=== PATIENT | female | born 1940 | race Caucasian/White ===

== ENCOUNTER 2019-10-15 10:45 | Emergency (ER) | payer MEDICARE, SELFPAY ==
[2019-10-15 11:12] VITALS: BP 102/59; PULSE 80; RESP 18; TEMP 36.6; O2SAT 98
--- NOTE | 2019-10-15 11:18 | ED.SKABFB ---
HPI - Skin/Abscess/Foreign Bdy General Chief complaint: Skin/Abscess/Foreign Body Stated complaint: rash on rectum and vagina Time Seen by Provider: 10/15/19 10:55 Source: patient Mode of arrival: ambulatory Limitations: no limitations History of Present Illness HPI narrative: This is a 78 year old female that presents to the ER for rash to vagina and left buttock x 2 days. Reports a couple days prior she noted pain in her left lower back that goes down her leg. Reports the rash is blisters that are painful. She took Tylenol with little relief. Reports the rash is also itchy. Denies fever, abdominal pain, dysura or hematuria. Related Data Home Medications Medication Instructions Recorded Confirmed citalopram 40 mg tablet 20 mg PO DAILY 10/15/19 ergocalciferol (vitamin D2) 1,250 50,000 unit PO WEEKLY 10/15/19 mcg (50,000 unit) capsule gabapentin 300 mg capsule 300 mg PO DAILY 10/15/19 hydrocortisone 2.5 % rectal cream % TOPICAL BID PRN 10/15/19 with applicator Allergies Allergy/AdvReac Type Severity Reaction Status Date / Time No Known Allergies Allergy Verified 10/15/19 11:17 Review of Systems Review of Systems: Narrative: CONSTITUTIONAL: Denies fever GASTROINTESTINAL: Denies abdominal pain GENITOURINARY: Denies dysuria or hematuria. SKIN: Reports rash and itching. MUSCULOSKELETAL: Reports back pain, joint pain, and myalgia. NEUROLOGIC: Denies weakness. All systems reviewed & are unremarkable except as noted in HPI and below PMFSH Past Medical History Medical History (Updated 10/15/19 @ 11:27 by Laura Dawkins PA-C) History of COPD History of depression History of gastroesophageal reflux (GERD) History of peripheral neuropathy Surgical History Surgical History (Updated 10/15/19 @ 11:21 by Laura Dawkins PA-C) History of mastectomy Family History Family History (Updated 05/01/16 @ 11:01 by DOCTOR UNKNOWN) Sibling Family history of diabetes mellitus in first degree relative Family history of malignant neoplasm of breast in first degree relative Patient's sister is in good health Father No family history of malignant neoplasm Family history of lung cancer Mother Patient's mother is Family history of Alzheimer's disease Family history of malignant melanoma Social History Social History Second hand tobacco smoke exposure: No Smoking end date: 09/17/98 Alcohol intake: never Exam Narrative: Exam Narrative: GENERAL: Well-appearing, well-nourished, and in no acute distress. HEAD: Normocephalic, atraumatic. EYES: EOMI. CHEST: Clear to auscultation. No respiratory distress. No wheezes rales or rhonchi HEART: Regular rate and rhythm. No murmur heard. Normal peripheral pulses. ABDOMEN: Soft, nontender, nondistended, normal active bowel sounds. EXTREMITIES: Normal range of motion. No edema. SKIN: Warm, dry. Vesicular rash on erythematous base in dermatomal pattern present over the left labia, left buttock, and down the back of the left leg. NEURO: No focal deficits. Alert and oriented x3. PSYCH: Normal mood and affect Course Vital Signs Vital signs: Vital Signs Temperature 97.9 F 10/15/19 11:12 Pulse Rate 80 10/15/19 11:12 Respiratory Rate 18 10/15/19 11:12 Blood Pressure 102/59 L 10/15/19 11:12 Pulse Oximetry 98 10/15/19 11:12 Temperature 97.9 F 10/15/19 11:12 Pulse Rate 80 10/15/19 11:12 Respiratory Rate 18 10/15/19 11:12 Blood Pressure 102/59 L 10/15/19 11:12 Pulse Oximetry 98 10/15/19 11:12 MDM - Skin/Abscess/Foreign Bdy MDM Narrative Medical decision making narrative: Patient presents to the emergency department for rash typical of herpes zoster. Patient will be started on antiviral and is to follow-up with her primary care doctor. She will be given a pain medication if needed. Patient was given warnings to return to the ER Critical Care Time Critical Care Time Critical Care Time: No Discharge Plan
== END 2019-10-15 11:42 | disposition home or self-care (01) ==
PROVIDERS: Emergency Provider Family Medicine; PCP Internal Medicine
DX: B02.9 Zoster without complications (principal); J44.9 Chronic obstructive pulmonary disease, unspecified; K21.9 Gastro-esophageal reflux disease without esophagitis; G62.9 Polyneuropathy, unspecified; Z90.10 Acquired absence of unspecified breast and nipple; Z87.891 Personal history of nicotine dependence
CPT/HCPCS: 99283

== ENCOUNTER 2019-10-31 17:58 | Emergency (ER) | payer MEDICARE, SELFPAY ==
[2019-10-31 18:00] VITALS: BP 151/82; PULSE 88; RESP 16; TEMP 36.6; O2SAT 95
--- NOTE | 2019-10-31 18:18 | ED.FEMALEGU ---
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 She states that she was dx with shingles to her buttock and genital area on 10/15/19, so was started on Valtrex and Hydrocodone. She reports that she has been using these as prescribed and that her original rash has improved but that she has been having some intermittent shooting lt buttock pain. She notes that the rash has spread to her vagina. She denies any fevers, chills, vaginal discharge, vaginal bleeding, N/V/D, or ABD pain. MD elicited complaint: other (vaginal pain) Location of symptoms: vaginal Severity: severe Quality of pain: other (shooting) Consistency: intermittent and progressively worsening Vaginal discharge: none Vaginal bleeding: none Urinary symptoms: Dysuria Associated symptoms: other (intermittent lt buttock pain) Treatment prior to arrival: other (Valtrex and Hydrocodone) Related Data Home Medications Medication Instructions Recorded Confirmed citalopram 40 mg tablet 20 mg PO DAILY 10/15/19 10/27/19 Allergies Allergy/AdvReac Type Severity Reaction Status Date / Time No Known Allergies Allergy Verified 10/20/19 14:18 Review of Systems Review of Systems: All systems reviewed & are unremarkable except as noted in HPI and below Constitutional: Constitutional: Denies chills and Denies fever(s) Gastrointestinal: Gastrointestinal: Denies abdominal pain, Denies diarrhea, Denies nausea and Denies vomiting Genitourinary: Genitourinary: Denies abnormal vaginal bleeding, Reports dysuria, Denies vaginal discharge and Reports other (shooting vaginal pain and lt buttock pain) [facility] Past Medical History Medical History Ankle fracture Rt x2. Arthritis Cataracts, bilateral COPD (chronic obstructive pulmonary disease) Depression GERD (gastroesophageal reflux disease) History of COPD History of depression History of gastroesophageal reflux (GERD) History of melena History of peripheral neuropathy Hx of breast cancer Hx of hemorrhoids IBS (irritable bowel syndrome) LBBB (left bundle branch block) Peripheral neuropathy Ulcer Surgical History Surgical History H/O cataract removal with insertion of prosthetic lens History of bilateral knee arthroplasty History of hemorrhoidectomy History of mastectomy Family History Family History Sibling Family history of diabetes mellitus in first degree relative Family history of malignant neoplasm of breast in first degree relative Patient's sister is in good health Father No family history of malignant neoplasm Family history of lung cancer Mother Patient's mother is Family history of Alzheimer's disease Family history of malignant melanoma Social History Social History Smoking status: Former smoker Second hand tobacco smoke exposure: No Smoking end date: 09/17/98 Alcohol intake: never Exam Narrative: Exam Narrative: GENERAL: Well-appearing, well-nourished, and in no acute distress. HEAD: Normocephalic, atraumatic. CHEST: Clear to auscultation. No respiratory distress. HEART: Regular rate and rhythm. Normal peripheral pulses. Pelvic: Healing shingles outbreak left pelvic region without any new vesicles or erythema. Unable to perform pelvic exam due to labial adhesions inferiorly. Otherwise there is no apparent discharge within the vagina or obvious irritation. Rectal: Rectum with small nonthrombosed/nonbleeding external hemorrhoids. There is a area of healing zoster ulceration on th
[2019-10-31 19:40] VITALS: BP 148/78; PULSE 81; RESP 16; O2SAT 100
[2019-10-31 20:21] LABS: Add Urine Microscopic? NO; Appearance Urine Clear (Clear); Bilirubin Urine Negative (Negative); Blood Urine Negative (Negative); Color Urine Yellow (Yellow); Glucose Urine UA Negative (Negative); Ketones Urine Negative (Negative); Leukocyte Esterase Ur Negative LEU/UL (Negative); Nitrate Urine Negative (Negative); Protein Urine Negative (Negative); Specific Grav Ur 1.015 (1.001-1.035); Urobilinogen Urine Negative mg/dL (<2.0)
== END 2019-10-31 21:07 | disposition home or self-care (01) ==
PROVIDERS: Emergency Provider Emergency Medicine; PCP Internal Medicine
DX: B02.29 Other postherpetic nervous system involvement (principal); N90.89 Other specified noninflammatory disorders of vulva and perineum; J44.9 Chronic obstructive pulmonary disease, unspecified; K21.9 Gastro-esophageal reflux disease without esophagitis; G62.9 Polyneuropathy, unspecified; K58.9 Irritable bowel syndrome, unspecified; M19.90 Unspecified osteoarthritis, unspecified site; Z85.3 Personal history of malignant neoplasm of breast; Z90.10 Acquired absence of unspecified breast and nipple; Z87.891 Personal history of nicotine dependence
CPT/HCPCS: 81003; 99283

== ENCOUNTER 2021-10-17 15:26 | Emergency (ER) | payer MEDICARE, SELFPAY ==
--- NOTE | ~2021-10-17 | XR_ITS ---
EXAMINATION: XR finger 1st RT min 2V EXAM DATE: 10/17/2021 16:11 INDICATION: Injury to rt thumb, hyperextended. TECHNIQUE: Right thumb frontal, lateral and oblique projections obtained and reviewed. There is no prior study for comparison. FINDINGS: Appearance to the volar plate of the right 1st distal phalanx appears most likely sequela f rom an old fracture, finding has been indicated. Please clinically correlate. No dislocation. No radi opaque foreign bodies identified. IMPRESSION: Right 1st distal phalanx volar plate most likely sequela from an old fracture but please clinically correlate. Reviewed, dictated and finalized at location G. EAR OPERATIONS SPECIALIST IMPRESSION: Right 1st distal phalanx volar plate most likely sequela from an o ld fracture but please clinically correlate.
[2021-10-17 15:44] VITALS: BP 141/79; PULSE 89; RESP 18; TEMP 36.8; O2SAT 97
[2021-10-17 15:47] VITALS: BP 141/79; PULSE 89; RESP 18; TEMP 36.8; O2SAT 97
--- NOTE | 2021-10-17 15:52 | ED.UPPEXIN ---
HPI - Extremity Injury (Upper) General Chief Complaint: Extremity Injury, Lower Stated Complaint: Right Hand Thumb Pain Time Seen by Provider: 10/17/21 15:53 Source: patient, family, RN notes reviewed and old records reviewed Mode of arrival: ambulatory Limitations: no limitations History of Present Illness HPI narrative: 80-year-old female presents to the [facility] with complaints of base of right thumb pain and swelling. Patient states approximately 1 week ago she stumbled and fell into a door jam. Thinks she hyperextended the thumb. Has good range of motion. Swelling is noted. No bruising. Capillary refill under 2 seconds. Sensation intact in all 5 fingers. Positive radial pulse. No snuffbox tenderness MD complaint: injury to: right Related Data Home Medications Medication Instructions Recorded Confirmed gabapentin 300 mg capsule See Rx Instructions PO DAILY cap 04/20/20 10/17/21 doxycycline monohydrate 50 mg PO DAILY 10/17/21 10/17/21 Allergies Allergy/AdvReac Type Severity Reaction Status Date / Time No Known Allergies Allergy Verified 10/17/21 16:01 Review of Systems Review of Systems: All systems reviewed & are unremarkable except as noted in HPI and below Constitutional: Constitutional: Reports no additional constitutional complaints, Denies chills, Denies fever(s), Denies headache(s) and Denies weakness Eyes: Eyes: Reports no additional eye complaints ENT: Reports system reviewed and no additional complaints, except as documented, Denies vertigo, Denies dizziness and Denies headache(s) Cardiovascular: Cardiovascular: Reports no additional cardiovascular complaints, Denies chest pain, Denies syncope and Denies dyspnea Respiratory: Respiratory: Reports no additional respiratory complaints, Denies cough and Denies dyspnea Gastrointestinal: Gastrointestinal: Reports no additional gastrointestinal complaints, Denies abdominal pain, Denies nausea and Denies vomiting Musculoskeletal: Musculoskeletal: Reports as per HPI, Reports arthralgias (Base right thumb), Reports joint swelling (Base right thumb) and Denies numbness Integumentary/Breasts: Skin/Breast: Reports system reviewed and no additional complaints, except as docu Neurologic: Reports system reviewed and no additional complaints, except as documented, Denies confusion, Denies vertigo, Denies dizziness, Denies syncope, Denies headache(s), Denies focal weakness, Denies numbness and Denies weakness Psychiatric: Psychiatric: Reports no additional psychiatric complaints and Denies confusion Allergic/Immunologic: Allergic/Immunologic: Reports no additional allergic/immunologic complaints PMFSH Past Medical History Medical History (Updated 10/18/21 @ 18:46 by Marley Poole) Ankle fracture Rt x2. Arthritis Cataracts, bilateral COPD (chronic obstructive pulmonary disease) Depression GERD (gastroesophageal reflux disease) History of COPD History of depression History of gastroesophageal reflux (GERD) History of melena History of peripheral neuropathy History of vaginal delivery x 3 Hx of breast cancer Hx of hemorrhoids IBS (irritable bowel syndrome) LBBB (left bundle branch block) Peripheral neuropathy Ulcer Surgical History Surgical History H/O cataract removal with insertion of prosthetic lens History of bilateral knee arthroplasty History of hemorrhoidectomy History of mastectomy Family History Family History Sibling Family history of diabetes mellitus in first degree relative Family history of malignant neoplasm of breast in first degree relative Patient's sister is in good health Father No family history of malignant neoplasm Family history of lung cancer Mother Patient's mother is Family history of Alzheimer's disease Family history of malignant melanoma Social History Social History (Reviewed 10/18/21 @ 18:45 b
== END 2021-10-17 16:35 | disposition home or self-care (01) ==
PROVIDERS: Emergency Provider Nurse Practitioner; PCP Internal Medicine
DX: S63.601A Unspecified sprain of right thumb, initial encounter (principal); W19.XXXA Unspecified fall, initial encounter; F17.200 Nicotine dependence, unspecified, uncomplicated; M19.90 Unspecified osteoarthritis, unspecified site; J44.9 Chronic obstructive pulmonary disease, unspecified; K21.9 Gastro-esophageal reflux disease without esophagitis; G62.9 Polyneuropathy, unspecified; Z85.3 Personal history of malignant neoplasm of breast; Z98.49 Cataract extraction status, unspecified eye; Z96.1 Presence of intraocular lens; Z96.653 Presence of artificial knee joint, bilateral
CPT/HCPCS: 73140; 99213; G0463

== ENCOUNTER 2022-02-06 15:57 | Outpatient (CLI) | payer MEDICARE, SELFPAY ==
--- NOTE | ~2022-02-06 | XR_ITS ---
EXAM: XR knee RT 3V DATE: 02/06/2022 16:21 HISTORY: M25.561 - Pain in right knee, CHRONIC, DENIES INJURY . COMPARISON: None available. FINDINGS: Decreased mineralization. Severe medial joint space narrowing. Tricompartmental osteophyto sis. No fracture or dislocation. Irregular cluster of ossific density projecting over the infrapatell ar fat pad. IMPRESSION: Possible old fat necrosis or hematoma with dystrophic ossification and calcification in t he infrapatellar fat pad. Tricompartmental osteoarthritis, severe in the medial compartment. Reviewed, dictated and finalized at location K. IMPRESSION: Possible old fat necrosis or hematoma with dystrophic ossification and calcification in the infrapatellar fat pad. Tricompartmental osteoarthritis , severe in the medial compartment.
== END 2022-02-06 15:58 | disposition home or self-care (01) ==
PROVIDERS: PCP Internal Medicine; Visit Provider Physician Assistant
DX: M25.561 Pain in right knee (principal); M17.11 Unilateral primary osteoarthritis, right knee
CPT/HCPCS: 73562

== ENCOUNTER 2022-05-01 12:52 | Outpatient (CLI) | payer MEDICARE, SELFPAY ==
[2022-05-01 13:44] LABS: D Dimer 0.47 ug/mL (<0.48)
== END 2022-05-01 12:53 | disposition home or self-care (01) ==
LOC: ANHLAB 12:56
PROVIDERS: PCP Internal Medicine; Visit Provider Physician Assistant
DX: R68.2 Dry mouth, unspecified (principal); R06.02 Shortness of breath
CPT/HCPCS: 36415; 85380

== ENCOUNTER 2022-11-14 10:13 | Emergency (ER) | payer MEDICARE, SELFPAY ==
[2022-11-14] VITALS (17 sets, daily range): BP systolic 145–154; BP diastolic 74–83; PULSE 76–111; RESP 9–21; TEMP 36.8; O2SAT 94–98
--- NOTE | ~2022-11-14 | CT_ITS ---
EXAMINATION: CT abdomen pelvis w con DATE: 11/14/2022 12:53 INDICATION: Bowel obstruction. TECHNIQUE: Computed tomography (CT) of the abdomen and pelvis was performed with 100 cc Omnipaque 350 intravenous contrast. The dose-length product was 308.62 mGy-cm. Automated exposure control and iter ative reconstruction technique were employed. COMPARISON: CT dated 12/28/2015 FINDINGS: The liver, spleen, pancreas, adrenal glands and left kidney are unremarkable. There is an e xtrarenal pelvis of the right kidney. Gallbladder is present. There is fluid throughout nondilated sm all bowel. Colonic diverticulosis without evidence for diverticulitis. No free air or free fluid. The re is diffuse atherosclerosis of the aorta without evidence for aneurysm. Retroaortic left renal vein . No abnormal pelvic masses or fluid collections. Moderate-severe lumbar spondylosis. No focal lytic or blastic lesions. IMPRESSION: 1. Fluid-filled nondilated small bowel, most likely ileus versus enteritis. No definite obstruction. Reviewed, dictated and finalized at location L. E REPAIRER
--- NOTE | 2022-11-14 10:58 | ED.GENADULT ---
HPI - General Adult General Chief complaint: Unspecified <CLEVELAND Sanchez Last Filed: 11/16/22 09:11> Stated complaint: constipation <Neal Deshpande PA-C - Last Filed: 11/16/22 09:11> Time Seen by Provider: 11/14/22 10:51 <Neal Deshpande PA-C - Last Filed: 11/16/22 09:11> History of Present Illness HPI narrative: This is an 81-year-old female who presents the ED by referral of her primary care doctor to rule out an obstruction. She has chief complaint of constipation x4 days. She does state that her last bowel movement was 4 days ago. Also complains of obstipation x2 days. She does note some pain to the rectum as well. Patient states she recently tried to manually disimpact while she was on the toilet at home. She states she was able to pull out some hard compacted stools. Since then she has had brown/yellow seepage. Denies any vomiting. Denies melena or hematochezia. Denies fevers, chills, LOC, chest pain, shortness of breath <Neal Deshpande PA-C - Last Filed: 11/16/22 09:11> Related Data Home medications: Home Medications Medication Instructions Recorded Confirmed gabapentin 300 mg capsule See Rx Instructions PO DAILY 04/20/20 05/07/22 doxycycline hyclate 50 mg capsule 50 mg PO DAILY 02/27/22 05/07/22 <CLEVELAND Sanchez Last Filed: 11/16/22 09:11> Allergies/adverse reactions: Allergies Allergy/AdvReac Type Severity Reaction Status Date / Time No Known Allergies Allergy Verified 05/01/22 11:01 <CLEVELAND Sanchez Last Filed: 11/16/22 09:11> Review of Systems Review of Systems: CONSTITUTIONAL: Denies fever, chills, or sweats. EYES: Denies visual changes, redness, or discharge. ENT: Denies rhinorrhea, congestion, sore throat, or otalgia. CARDIOVASCULAR: Denies chest pain, palpitations, or edema. RESPIRATORY: Denies cough or dyspnea. GASTROINTESTINAL: Endorses constipation. Endorses abdominal cramping and nausea. Denies vomiting or diarrhea. GENITOURINARY: Denies dysuria or hematuria. SKIN: Denies rash or itching. MUSCULOSKELETAL: Denies back pain, joint pain, or myalgia. NEUROLOGIC: Denies headache, numbness, dizziness, or weakness. PSYCHIATRIC: Denies anxiety or depression. <Neal Deshpande PA-C - Last Filed: 11/16/22 09:11> [facility] Past Medical History Medical History: Medical History (Updated 11/15/22 @ 00:00 by [facility]) Ankle fracture Rt x2. Arthritis Cataracts, bilateral COPD (chronic obstructive pulmonary disease) Depression GERD (gastroesophageal reflux disease) History of COPD History of depression History of gastroesophageal reflux (GERD) History of melena History of peripheral neuropathy History of vaginal delivery x 3 Hx of breast cancer Hx of hemorrhoids IBS (irritable bowel syndrome) LBBB (left bundle branch block) Peripheral neuropathy Ulcer <Neal Deshpande PA-C - Last Filed: 11/16/22 09:11> Surgical History Surgical History: Surgical History H/O cataract removal with insertion of prosthetic lens History of bilateral knee arthroplasty History of hemorrhoidectomy History of mastectomy <Neal Deshpande PA-C - Last Filed: 11/16/22 09:11> Family History Family History: Family History Sibling Family history of diabetes mellitus in first degree relative Family history of malignant neoplasm of breast in first degree relative Patient's sister is in good health Father No family history of malignant neoplasm Family history of lung cancer Mother Patient's mother is Family history of Alzheimer's disease Family history of malignant melanoma <Neal Deshpande PA-C - Last Filed: 11/16/22 09:11> Social History Social History: Social History Smoking status: Former smoker Second hand tobacco smoke exposure: No Smoking end d
[2022-11-14 11:49] LABS: Basophils Absolute Auto 0.1 K/mm3 (0.0-0.1); Basophils Percent Auto 1.2 % (0.2-1.2); Eosinophils Absolute Auto 0.2 K/mm3 (0-0.3); Eosinophils Percent Auto 4.1 % (0-4.4); Hematocrit 40.9 % (37.0-47.0); Hemoglobin 13.5 g/dL (12.0-15.0); Immature Granulocyte Absolute 0.01 K/mm3 (0.00-0.031); Immature Granulocyte Percent A 0.2 % (0-0.5); Lymphocytes Absolute Auto 1.63 K/mm3 (0.9-3.2); Lymphocytes Percent Auto 31.9 % (18.3-44.2); Mean Corpuscular Hemoglobin 30.7 pg (26-34); Mean Platelet Volume 10.8 fl (7.4-10.4); Monocytes Absolute Auto 0.6 K/mm3 (0.1-0.6); Monocytes Percent Auto 11.4 % (2.6-8.5); Neutrophils Absolute Auto 2.6 K/mm3 (1.3-6.7); Neutrophils Percent Auto 51.2 % (45.5-73.1); Platelet Count Result 176 k/mm3 (150-375); Red Cell Distribution Width 12.4 % (11.5-14.5); White Blood Count 5.1 K/mm3 (4.5-10.0)
[2022-11-14] MEDS: SODIUM CHLORIDE 0.9% IV 1,000 ML 999 ML IV CONT (11:52)
[2022-11-14] MEDS: ONDANSETRON INJ 4 MG/2 ML VIAL IV PUSH (11:52)
[2022-11-14 12:04] LABS: Alanine Aminotransferase 39 U/L (6-35); Albumin Level 3.9 g/dL (3.5-5.1); Alkaline Phosphatase 144 U/L (38-126); Anion Gap 5 mmol/L (8-16); Aspartate Amino Transferase 40 U/L (14-36); Bilirubin,Total 0.9 mg/dL (0.2-1.3); Blood Urea Nitrogen 18 mg/dL (7-17); CRP 2.2 mg/dL (<1.0); Calcium 8.9 mg/dL (8.4-10.2); Carbon Dioxide 29 mmol/L (22-30); Chloride 103 mmol/L (98-107); Estimated CRCL calculation 56 ml/min; Estimated Glomerular Filt Rate > 60; Glucose 98 mg/dL (65-110); Potassium 4.3 mmol/L (3.4-5.0); Sodium 137 mmol/L (137-145)
[2022-11-14 12:58] LABS: Appearance Urine Clear (Clear); Bilirubin Urine Negative (Negative); Blood Urine Negative (Negative); Color Urine Yellow (Yellow); Glucose Urine UA Negative (Negative); Ketones Urine Negative (Negative); Leukocyte Esterase Ur Negative LEU/UL (Negative); Nitrate Urine Negative (Negative); Protein Urine Negative (Negative); Specific Grav Ur 1.013 (1.001-1.035); Urobilinogen Urine 0.2 mg/dL (<2.0); pH Urine 5.5 (5.0-9.0)
[2022-11-14 13:04] LABS: Add Urine Microscopic? NO
== END 2022-11-14 16:30 | disposition home or self-care (01) ==
PROVIDERS: Emergency Provider Physician Assistant; PCP Internal Medicine
DX: K52.9 Noninfective gastroenteritis and colitis, unspecified (principal); J44.9 Chronic obstructive pulmonary disease, unspecified; K21.9 Gastro-esophageal reflux disease without esophagitis; G62.9 Polyneuropathy, unspecified; K58.9 Irritable bowel syndrome, unspecified; M19.90 Unspecified osteoarthritis, unspecified site; Z98.49 Cataract extraction status, unspecified eye; Z96.1 Presence of intraocular lens; Z96.653 Presence of artificial knee joint, bilateral; Z90.10 Acquired absence of unspecified breast and nipple; Z85.3 Personal history of malignant neoplasm of breast; Z87.891 Personal history of nicotine dependence
CPT/HCPCS: 36415; 74177; 80053; 81003; 85025; 86140; 96361; 96374; 99284; J2405; J7030; Q9967

== ENCOUNTER 2023-10-01 11:39 | Emergency (ER) | payer MEDICARE, SELFPAY ==
[2023-10-01] VITALS (7 sets, daily range): BP systolic 112–172; BP diastolic 68–87; PULSE 84–94; RESP 13–19; TEMP 36.6; O2SAT 96–100
--- NOTE | ~2023-10-01 | CT_ITS ---
EXAMINATION: CT abdomen pelvis w con DATE: 10/01/2023 13:38 INDICATION: Lower abdominal pain. Pelvic pain, rectal pain. TECHNIQUE: Computed tomography (CT) of the abdomen and pelvis was performed with 100 CC Omnipaque 350 intravenous contrast. Automated exposure control and iterative reconstruction technique were employe d. Exam dose: 282.22 mGy-cm total exam DLP. COMPARISON: November 14, 2022 CT abdomen pelvis FINDINGS: The lung bases are clear. Normal heart size. Coronary artery calcifications. No pericardial or pleural effusion. The liver, gallbladder, bile ducts, pancreas, pancreatic duct, spleen and adrenal glands are unremark able. Atherosclerotic calcification of the abdominal aorta, iliac and femoral arteries, No intraperitoneal or retroperitoneal or pelvic mass lesion or adenopathy or ascites. 7 mm upper pole left renal cyst. 10.9 mm hypoenhancing posteromedial mid left renal lesion, not signi ficantly changed since November 14, 2022. No suspicious renal mass lesion or urinary tract calculus or hydroureteronephrosis is detected. The u terus, urinary bladder and adnexal areas are unremarkable. There is soft tissue thickening of the sigmoid colon and mild pericolic fat stranding fluid accumulat ion in the posterior lower left pelvic area. There are diverticula of the sigmoid colon. Acute uncomp licated sigmoid diverticulitis is suspected. No abscess is identified. Sigmoid colon carcinoma is con sidered less likely in the differential diagnosis. Normal appendix. No bowel obstruction or intraperitoneal free air is detected. Small fat-containing umbilical hernia. Degenerative changes of the thoracic and lumbar spine including severe degenerative disc disease and associated mild retrolisthesis at L5-S1. IMPRESSION: Acute sigmoid diverticulitis without abscess is suggested; differential diagnosis includ es less likely sigmoid colon carcinoma. Reviewed, dictated and finalized at Location [facility]. Reviewed, dictated and finalized at location B. ER SPECIALIST IMPRESSION: Acute sigmoid diverticulitis without abscess is suggested; differe ntial diagnosis includes less likely sigmoid colon carcinoma.
--- NOTE | ~2023-10-01 | XR_ITS ---
Clinical Indication: Abdominal pain PA and lateral views of the chest: Comparison: 05/14/2019 Findings: The lungs are clear, without evidence of focal consolidation or pleural effusion. Cardiome diastinal silhouette is within normal limits. Bones and soft tissues are unremarkable. Impression: Normal chest. Reviewed, dictated and finalized at [facility]. D RANGING CREWMEMBER Impression: Normal chest.
--- NOTE | 2023-10-01 12:32 | ED.FEMALEGU ---
HPI - Female Genitourinary General Chief complaint: Urogenital-Female Stated complaint: pelvic pain Time Seen by Provider: 10/01/23 12:32 Source: patient and family Mode of arrival: ambulatory Limitations: no limitations History of Present Illness HPI Narrative: 82 years old white female came to the ED by private car from home complaining of lower abdominal pain started 4 days ago, increase at night mainly laying down flat. And also when sitting up. She denies relieving factors. She denies any fever, chills, nausea, vomiting, diarrhea, constipation, urinary symptoms. History of left mastectomy 2004. She did not see her family physician for years. Related Data Home Medications Medication Instructions Recorded Confirmed doxycycline hyclate 50 mg capsule 50 mg PO DAILY 02/27/22 05/07/22 Allergies Allergy/AdvReac Type Severity Reaction Status Date / Time No Known Allergies Allergy Verified 05/01/22 11:01 Review of Systems Review of Systems: All systems reviewed & are unremarkable except as noted in HPI and below PMFSH Past Medical History Medical History Ankle fracture Rt x2. Arthritis Cataracts, bilateral COPD (chronic obstructive pulmonary disease) Depression GERD (gastroesophageal reflux disease) History of COPD History of depression History of gastroesophageal reflux (GERD) History of melena History of peripheral neuropathy History of vaginal delivery x 3 Hx of breast cancer Hx of hemorrhoids IBS (irritable bowel syndrome) LBBB (left bundle branch block) Peripheral neuropathy Ulcer Surgical History Surgical History H/O cataract removal with insertion of prosthetic lens History of bilateral knee arthroplasty History of hemorrhoidectomy History of mastectomy Family History Family History Sibling Family history of diabetes mellitus in first degree relative Family history of malignant neoplasm of breast in first degree relative Patient's sister is in good health Father No family history of malignant neoplasm Family history of lung cancer Mother Patient's mother is Family history of Alzheimer's disease Family history of malignant melanoma Social History Social History Smoking status: Former smoker Second hand tobacco smoke exposure: No Smoking end date: 09/17/98 Alcohol intake: never Substance use: never Exam Narrative: General appearance: Well-developed, well-nourished Skin: Normal color Head: Normocephalic, nontraumatic Eyes: Clear conjunctiva ENT: Oropharynx normal, ears normal, nose normal Neck: Supple, nontender Chest and respiratory: Airway patent, no respiratory distress, no accessory muscle use Heart: Regular rate/rhythm Abdomen: Soft, Slight diffuse tenderness lower abdomen bilaterally, no guarding rebound no organomegaly, quiet bowel sounds Vascular: Normal peripheral pulses, normal capillary refill. Musculoskeletal: Normal range of motion, nontender back Neurologic: Alert and oriented ?3, SUBSTATION MANAGER is normal as tested, no gross motor deficit Course Reevaluation(s) Reevaluation #1: initially patient declined any pain medication, later had Tylenol with some improvement. Date: 10/01/23 Time: 15:07 Vital Signs Vital signs: Vital Signs Temperature 36.6 C 10/01/23 12:04 Pulse Rate 94 10/01/23 12:04 Respiratory Rate 18 10/01/23 12:04 Blood Pressure 112/68 10/01/23 12:04 Pulse Oximetry 98 10/01/23 12:04 Oxygen Delivery Room Air
[2023-10-01 13:10] LABS: Basophils Absolute Auto 0.1 K/mm3 (0.0-0.1); Basophils Percent Auto 1.1 % (0.2-1.2); Eosinophils Absolute Auto 0.6 K/mm3 (0-0.3); Eosinophils Percent Auto 6.2 % (0-4.4); Hematocrit 42.8 % (37.0-47.0); Hemoglobin 13.6 g/dL (12.0-15.0); Immature Granulocyte Absolute 0.02 K/mm3 (0.00-0.031); Immature Granulocyte Percent A 0.2 % (0-0.5); Lymphocytes Absolute Auto 2.18 K/mm3 (0.9-3.2); Mean Corpuscular HGB Conc 31.8 g/dl (32-36); Mean Corpuscular Hemoglobin 29.9 pg (26-34); Mean Corpuscular Volume 94.1 fl (80-100); Mean Platelet Volume 11.5 fl (7.4-10.4); Monocytes Absolute Auto 0.9 K/mm3 (0.1-0.6); Monocytes Percent Auto 9.9 % (2.6-8.5); Neutrophils Absolute Auto 5.3 K/mm3 (1.3-6.7); Neutrophils Percent Auto 58.6 % (45.5-73.1); Platelet Count Result 204 k/mm3 (150-375); Red Blood Count 4.55 M/mm3 (4.2-5.4); Red Cell Distribution Width 12.5 % (11.5-14.5); White Blood Count 9.1 K/mm3 (4.5-10.0)
[2023-10-01] MEDS: SODIUM CHLORIDE 0.9% IV 1,000 ML 999 ML IV CONT (13:10)
[2023-10-01 13:14] LABS: Appearance Urine Clear (Clear); Bacteria Urine None Seen /hpf; Bilirubin Urine Negative (Negative); Blood Urine Negative (Negative); Color Urine Yellow (Yellow); Glucose Urine UA Negative (Negative); Ketones Urine Negative (Negative); Leukocyte Esterase Ur Negative LEU/UL (Negative); Nitrate Urine Negative (Negative); Non Pathogenic Casts 0-2; Protein Urine Trace mg/dL (Negative); RBC Urine 0-2 /hpf (0-2); Specific Grav Ur 1.022 (1.001-1.035); Squamous Epithelial Cell Urine None seen /hpf (Few); Urobilinogen Urine 0.2 mg/dL (<2.0); WBC Urine 0-5 /hpf; pH Urine 6.5 (5.0-9.0)
[2023-10-01 13:19] LABS: Alanine Aminotransferase 28 U/L (6-35); Albumin Level 4.1 g/dL (3.5-5.1); Alkaline Phosphatase 167 U/L (38-126); Anion Gap 3 mmol/L (8-16); Aspartate Amino Transferase 41 U/L (14-36); Bilirubin,Total 1.2 mg/dL (0.2-1.3); Blood Urea Nitrogen 12 mg/dL (7-17); Calcium 9.3 mg/dL (8.4-10.2); Carbon Dioxide 31 mmol/L (22-30); Chloride 100 mmol/L (98-107); Estimated CRCL calculation 47 ml/min; Estimated Glomerular Filt Rate > 60; Glucose 101 mg/dL (65-110); Lipase 56 U/L (23-300); Potassium 4.8 mmol/L (3.4-5.0); Prothrombin Time 13.7 Seconds (11.1-14.7); Sodium 134 mmol/L (137-145)
[2023-10-01 13:20] LABS: Partial Thromboplastin Time 32.2 SECONDS (22.3-36.8)
[2023-10-01 13:28] LABS: Add Urine Microscopic? YES
--- NOTE | 2023-10-01 14:03 | PC.NURSE ---
Patient ambulated to the restroom with steady gate
[2023-10-01] MEDS: ACETAMINOPHEN 325 MG TABLET 650 MG PO (14:46)
== END 2023-10-01 15:06 | disposition home or self-care (01) ==
PROVIDERS: Emergency Provider Emergency Medicine; PCP Internal Medicine
DX: K57.92 Diverticulitis of intestine, part unspecified, without perforation or abscess without bleeding (principal); J44.9 Chronic obstructive pulmonary disease, unspecified; Z87.891 Personal history of nicotine dependence; Z85.3 Personal history of malignant neoplasm of breast
CPT/HCPCS: 36415; 71046; 74177; 80053; 81001; 83605; 83690; 85025; 85610; 85730; 96360; 99284; A9270; J7030; Q9967

== ENCOUNTER 2023-11-13 00:11 | Day surgery (SDC) | payer MEDICARE, SELFPAY ==
--- NOTE | 2023-11-09 13:00 | SUR.PREOP ---
Patient called regarding upcoming procedure. Voicemail left regarding appointment times.
--- NOTE | 2023-11-12 15:09 | PM.HPGS ---
History of Present Illness History of Present Illness Consent: Risks, benefits, and alternatives have been discussed and questions answered. Patient agrees to proceed with procedure. Chief complaint: Diverticulitis,Abdominal pain Narrative: Hannah Acosta is a 82 year old female Referred for colonoscopy due to an abnormal CT scan of the abdomen. A CT scan done recently for abdominal pain revealed possible diverticulitis versus mass in the sigmoid colon. Review of Systems Review of Systems: All systems reviewed & are unremarkable except as noted in HPI and below PMFSH Past Medical History Medical History Abdominal pain Ankle fracture Rt x2. Arthritis Cataracts, bilateral Constipation COPD (chronic obstructive pulmonary disease) Depression GERD (gastroesophageal reflux disease) History of COPD History of depression History of gastroesophageal reflux (GERD) History of melena History of peripheral neuropathy History of vaginal delivery x 3 Hx of breast cancer Hx of hemorrhoids IBS (irritable bowel syndrome) LBBB (left bundle branch block) Peripheral neuropathy Ulcer Surgical History Surgical History H/O cataract removal with insertion of prosthetic lens History of bilateral knee arthroplasty History of hemorrhoidectomy History of mastectomy Family History Family History Sibling Family history of diabetes mellitus in first degree relative Family history of malignant neoplasm of breast in first degree relative Patient's sister is in good health Father No family history of malignant neoplasm Family history of lung cancer Mother Patient's mother is Family history of Alzheimer's disease Family history of malignant melanoma Social History Social History Smoking status: Former smoker Tobacco type: cigarettes Second hand tobacco smoke exposure: No Smoking end date: 09/17/98 Alcohol intake: never Substance use: never Substance use type: does not use Living arrangements: with family Spiritual care concerns: No Meds Home Medications and Allergies Home Medications Medication Instructions Recorded Confirmed Type doxycycline hyclate 50 mg capsule 50 mg PO DAILY 02/27/22 11/13/23 History Symbicort 160 mcg-4.5 2 puff inhalation Q12H #10.2 grams 05/01/22 11/13/23 Rx mcg/actuation HFA aerosol inhaler (budesonide-formoterol) albuterol sulfate 90 mcg/actuation 2 puff inhalation Q4-6H PRN 05/01/22 11/13/23 Rx aerosol inhaler shortness of breath or wheezing #8.5 grams citalopram 40 mg tablet (Celexa) 40 mg PO DAILY #90 tabs 10/27/22 11/13/23 Rx gabapentin 300 mg capsule See Rx Instructions PO DAILY #120 03/05/23 11/13/23 Rx caps Allergies Allergy/AdvReac Type Severity Reaction Status Date / Time No Known Allergies Allergy Verified 11/13/23 11:40 Exam Const: General: alert Orientation/consciousness: patient oriented x3 Resp: Auscultation: clear to auscultation bilaterally Cardio: Rhythm: regular rhythm GI: GI Palp: Yes Soft to palpation and No Tenderness to palpation present (GI) Neuro: General: patient oriented x3 Assessment and Plan Assessment and plan (1) Constipation: Code(s): K59.00 - Constipation, unspecified Status: Acute (2) Abnormal CT scan, gastrointestinal tract: Code(s): R93.3 - Abnormal findings on diagnostic imaging of other parts of digestive tract Status: Acute Assessment and Plan: Colonoscopy with possible biopsy or polypectomy or cautery or injection of substances.
[2023-11-13 11:42] VITALS: BP 120/83; PULSE 108; RESP 16; TEMP 36.4; O2SAT 94
[2023-11-13] MEDS: LACTATED RINGERS 1,000 ML 150 ML IV CONT (11:45)
--- NOTE | 2023-11-13 12:26 | WPDANESEPPF ---
Anes - Initial Pre Proc Eval Procedure: Operation Date: 11/13/23 13:00 Proposed Procedures p Colonoscopy - Marquez Paulson MD Date/Time: 11/13/23 12:26 Surgeon: Marquez Paulson MD Pre Op Diagnosis: Diverticulitis,Abdominal pain Patient Data Age: 82 Gender: F Height: 1.65 m Weight: 53.3 kg Last Vital Signs Temp 36.4 C 11/13/23 11:42 Pulse 108 H 11/13/23 11:42 Resp 16 11/13/23 11:42 BP 120/83 11/13/23 11:42 Pulse Ox 94 11/13/23 11:42 O2 Del Method Room Air 11/13/23 11:42 Allergies Allergy/AdvReac Type Severity Reaction Status Date / Time No Known Allergies Allergy Verified 11/13/23 11:40 Home Medications Medication Instructions Recorded Confirmed Type doxycycline hyclate 50 mg capsule 50 mg PO DAILY 02/27/22 11/13/23 History Symbicort 160 mcg-4.5 2 puff inhalation Q12H #10.2 grams 05/01/22 11/13/23 Rx mcg/actuation HFA aerosol inhaler (budesonide-formoterol) albuterol sulfate 90 mcg/actuation 2 puff inhalation Q4-6H PRN 05/01/22 11/13/23 Rx aerosol inhaler shortness of breath or wheezing #8.5 grams citalopram 40 mg tablet (Celexa) 40 mg PO DAILY #90 tabs 10/27/22 11/13/23 Rx gabapentin 300 mg capsule See Rx Instructions PO DAILY #120 03/05/23 11/13/23 Rx caps Patient hx anesthesia problems: none Family hx anesthesia problems: none Results Review: All pre-operative results and documents have been reviewed as part of the pre-operative evaluation. [facility] Past Medical History Medical History Abdominal pain Ankle fracture Rt x2. Arthritis Cataracts, bilateral Constipation COPD (chronic obstructive pulmonary disease) Depression GERD (gastroesophageal reflux disease) History of COPD History of depression History of gastroesophageal reflux (GERD) History of melena History of peripheral neuropathy History of vaginal delivery x 3 Hx of breast cancer Hx of hemorrhoids IBS (irritable bowel syndrome) LBBB (left bundle branch block) Peripheral neuropathy Ulcer Surgical History Surgical History H/O cataract removal with insertion of prosthetic lens History of bilateral knee arthroplasty History of hemorrhoidectomy History of mastectomy Family History Family History Sibling Family history of diabetes mellitus in first degree relative Family history of malignant neoplasm of breast in first degree relative Patient's sister is in good health Father No family history of malignant neoplasm Family history of lung cancer Mother Patient's mother is Family history of Alzheimer's disease Family history of malignant melanoma Social History Social History Smoking status: Former smoker Tobacco type: cigarettes Second hand tobacco smoke exposure: No Smoking end date: 09/17/98 Alcohol intake: never Substance use: never Substance use type: does not use Living arrangements: with family Spiritual care concerns: No Anes - Eval Final PreProcedure Day of Procedure 11/13/23 12:26 Patient weight: normal Heart: regular rate and rhythm Lungs: clear to auscultation Airway: Mallampati scale class II Neurological: alert and oriented Last oral intake: >/= 8 hours ASA classification: III Emergent: no Anesthetic plan: proceed Anesthesia type and monitoring: general GIVS and standard monitoring Results Review: All pre-operative results and documents have been reviewed as part of the pre-operative evaluation. Informed Consent: The patient's anesthetic plan and its attendant risks and benefits were discussed with the patient/family/POA. Questions were solicited and answers provided to the satisfaction of the patient/family/POA.
[2023-11-13] MEDS: SIMETHICONE ORAL SUSPENSION 20 MG/0.3 ML 30 ML BOTTLE 0.6 ML IRRIGATION (13:02)
[2023-11-13 13:11] VITALS: BP 108/53; PULSE 88; RESP 20; O2SAT 96
[2023-11-13 13:21] VITALS: BP 116/56; PULSE 90; RESP 20; O2SAT 95
[2023-11-13 13:31] VITALS: BP 127/65; PULSE 88; RESP 18; O2SAT 96
== END 2023-11-13 13:39 | disposition home or self-care (01) ==
PROVIDERS: PCP Internal Medicine; Visit Provider Internal Medicine Gastroenterology
PROC: 0DJD8ZZ Inspection of Lower Intestinal Tract, Via Natural or Artificial Opening Endoscopic (ICD-10-PCS; CPT 45378; principal; 2023-11-13 13:00)
DX: K57.30 Diverticulosis of large intestine without perforation or abscess without bleeding (principal); K64.8 Other hemorrhoids; J44.9 Chronic obstructive pulmonary disease, unspecified; F32.A Depression, unspecified; G62.9 Polyneuropathy, unspecified; K58.9 Irritable bowel syndrome, unspecified; Z85.3 Personal history of malignant neoplasm of breast; Z79.51 Long term (current) use of inhaled steroids; Z87.891 Personal history of nicotine dependence
CPT/HCPCS: 45378; J2704; J7120

== ENCOUNTER 2023-12-20 17:44 | Emergency (ER) | payer MEDICARE, SELFPAY ==
--- NOTE | ~2023-12-20 | CT_ITS ---
EXAMINATION: CT cervical spine wo con DATE: 12/20/2023 18:46 INDICATION: Head injury TECHNIQUE: Computed tomography (CT) of the cervical spine was performed without intravenous contrast. Automated exposure control and iterative reconstruction technique were employed. The dose-length pro duct was 681.00 mGy-cm. COMPARISON: None FINDINGS: 11 degrees cervical dextrocurvature. Sagittal alignment is normal. Vertebral body heights are normal. Schmorl's node along the superior endplate of C7. No acute fractures. Moderate disc height loss at C 4-C5, C5-C6 and C6-C7. Mild disc height loss at C3-C4. Multilevel cervical uncovertebral osteoarthrit is, severe on the left at C4-C5 and bilaterally at C5-C6 with mild to moderate uncovertebral osteoart hritis the remaining cervical spine. There is also severe facet osteoarthritis on the left at C2-C3, C3-C4 and C4-C5 and on the left at C3-C4 and C7-T1. Mild/moderate facet osteoarthritis at the remaini ng cervical levels. This contributes to neural foraminal stenosis, moderate severity on the left at C 4-C5 and bilaterally at C5-C6 with mild neural from stenosis at a few additional cervical levels. No significant central canal stenosis. Small amount of atherosclerotic calcific location at the left car otid bulb. Cervical soft tissues are otherwise unremarkable. Mild emphysema and mild pleural parenchy mal scarring at the bilateral apices of the lungs. IMPRESSION: 1. Moderate cervical spondylosis. No acute osseous abnormality. Reviewed, dictated and finalized at location A.
--- NOTE | ~2023-12-20 | CT_ITS ---
EXAMINATION: CT brain wo con DATE: 12/20/2023 18:46 INDICATION: Head injury TECHNIQUE: Computed tomography (CT) of the head was performed without intravenous contrast. Sagittal and coronal reconstructions were performed. The mA was adjusted according to patient size. Iterative reconstruction technique was employed. The dose-length product was 681.00 mGy-cm. COMPARISON: None FINDINGS: No fracture. No acute intracranial hemorrhage, acute infarction or abnormal extra axial fluid collect ion. There is moderate scattered white matter hypoattenuation consistent with chronic small vessel is chemic disease. Ventricles are normal and symmetric. No mass/mass effect. Symmetric likely age-relate d dystrophic calcifications at the bilateral basal ganglia. Changes of bilateral intraocular lens rep lacement. The orbits, paranasal sinuses and mastoid air cells are normal. IMPRESSION: 1. No fracture or acute intracranial process. Reviewed, dictated and finalized at location A.
[2023-12-20 18:04] VITALS: BP 120/58; PULSE 83; RESP 19; TEMP 36.9; O2SAT 95
--- NOTE | 2023-12-20 19:05 | ED.FALL ---
HPI - Fall General Chief Complaint: Fall Stated Complaint: Fall Time Seen by Provider: 12/20/23 18:20 Source: patient and family Mode of arrival: ambulatory Limitations: no limitations History of Present Illness HPI Narrative: This is a 83 year old female that presents to the ER after a fall with head injury. Reports she stumbled and fell backwards. Reports hitting her she. She did not lose consciousness. Reports a laceration to the posterior scalp. Unsure of last tetanus vaccination. She is not on anticoagulation. Denies vision changes, vomiting, numbness, or weakness. Related Data Home Medications Medication Instructions Recorded Confirmed doxycycline hyclate 50 mg capsule 50 mg PO DAILY 02/27/22 11/13/23 Allergies Allergy/AdvReac Type Severity Reaction Status Date / Time No Known Allergies Allergy Verified 12/20/23 17:46 Review of Systems Review of Systems: CONSTITUTIONAL: Denies fever GASTROINTESTINAL: Denies vomiting MUSCULOSKELETAL: Denies back pain, joint pain, or myalgia. NEUROLOGIC: Reports headache. Denies numbness, or weakness. All systems reviewed & are unremarkable except as noted in HPI and below PMFSH Past Medical History Medical History Abdominal pain Ankle fracture Rt x2. Arthritis Cataracts, bilateral Constipation COPD (chronic obstructive pulmonary disease) Depression GERD (gastroesophageal reflux disease) History of COPD History of depression History of gastroesophageal reflux (GERD) History of melena History of peripheral neuropathy History of vaginal delivery x 3 Hx of breast cancer Hx of hemorrhoids IBS (irritable bowel syndrome) LBBB (left bundle branch block) Peripheral neuropathy Ulcer Surgical History Surgical History H/O cataract removal with insertion of prosthetic lens History of bilateral knee arthroplasty History of hemorrhoidectomy History of mastectomy Family History Family History Sibling Family history of diabetes mellitus in first degree relative Family history of malignant neoplasm of breast in first degree relative Patient's sister is in good health Father No family history of malignant neoplasm Family history of lung cancer Mother Patient's mother is Family history of Alzheimer's disease Family history of malignant melanoma Social History Social History Smoking status: Former smoker Tobacco type: cigarettes Second hand tobacco smoke exposure: No Smoking end date: 09/17/98 Alcohol intake: never Substance use: never Substance use type: does not use Living arrangements: with family Spiritual care concerns: No Exam Narrative: GENERAL: Elderly, well-nourished, and in no acute distress. HEAD: Normocephalic. 3.5cm linear laceration into subcutaneous tissue to the posterior scalp EYES: PERRLA and EOMI. ENT: Nares clear, no rhinorrhea or epistaxis. Mucous membranes moist. Oropharynx without tonsillar hypertrophy exudate or other lesions. Bilateral TMs pearly ha non-bulging NECK: Supple. No adenopathy or masses. CHEST: Clear to auscultation. No respiratory distress. No wheezes rales or rhonchi HEART: Regular rate and rhythm. No murmur heard. Normal peripheral pulses. EXTREMITIES: Normal range of motion. No edema or obvious deformity. SKIN: Warm, dry, no rash. NEURO: No focal deficits. Alert and oriented x3. CN II-XII grossly intact. Strength equal in bilateral upper and lower extremities (5/5) PSYCH: Normal mood and affect Course Course Emergency Course: Patient and family updated on workup and agree with plan of care Vital Signs Vital signs: Vital Signs Temperature 98.5 F 12/20/23 18:04 Pulse Rate 83 12/20/23 18:04 Respiratory Rate 19 12/20/23 18:04 Blood Pressure 120/58
[2023-12-20] MEDS: TETANUS,DIPHTHERIA,AC PERTUSSIS ADULT (0.5 ML) BOOSTRIX IM (19:22)
[2023-12-20 20:33] VITALS: BP 130/67; PULSE 67; RESP 15; TEMP 37; O2SAT 99
== END 2023-12-20 20:34 | disposition home or self-care (01) ==
PROVIDERS: Emergency Provider Physician Assistant; PCP Internal Medicine
DX: S01.01XA Laceration without foreign body of scalp, initial encounter (principal); Z23 Encounter for immunization; J44.9 Chronic obstructive pulmonary disease, unspecified; K21.9 Gastro-esophageal reflux disease without esophagitis; G62.9 Polyneuropathy, unspecified; M19.90 Unspecified osteoarthritis, unspecified site; Z96.653 Presence of artificial knee joint, bilateral; Z96.1 Presence of intraocular lens; Z98.49 Cataract extraction status, unspecified eye; Z90.10 Acquired absence of unspecified breast and nipple; Z87.891 Personal history of nicotine dependence; M47.812 Spondylosis without myelopathy or radiculopathy, cervical region; W01.0XXA Fall on same level from slipping, tripping and stumbling without subsequent striking against object, initial encounter
CPT/HCPCS: 12001; 70450; 72125; 90471; 90715; 99284

== ENCOUNTER 2024-03-25 12:43 | Outpatient (CLI) | payer MEDICARE, SELFPAY ==
--- NOTE | ~2024-03-25 | CT_ITS ---
EXAMINATION: CT abdomen pelvis wo con DATE: 03/25/2024 13:02 INDICATION: Abdominal pain. Abnormal weight loss. TECHNIQUE: Computed tomography (CT) of the abdomen and pelvis was performed without intravenous contr ast. Automated exposure control and iterative reconstruction technique were employed. The dose-length product was 255.66 mGy-cm. COMPARISON: CT abdomen pelvis 10/01/2023 FINDINGS: The visualized portions of the lung bases demonstrate mild scarring in paraspinal right low er lobe and mild scarring in lingula. No pleural effusion. The heart size is normal. There are kwong ry artery calcifications. There is a small pericardial effusion. The liver, gallbladder, spleen, panc reas, adrenal glands, and kidneys are normal. There is no urolithiasis. There is calcified atheroscle rosis of the aorta and many of the other arteries. There is diverticulosis of the colon without evide nce of diverticulitis. The appendix is normal. There are no pathologically enlarged lymph nodes. Ther e is no free intraperitoneal fluid. There is severe lumbar spondylosis. IMPRESSION: 1. No specific etiology for the patient's symptoms. Reviewed, dictated and finalized at location E.
== END 2024-03-25 12:44 | disposition home or self-care (01) ==
PROVIDERS: PCP Internal Medicine; Visit Provider Internal Medicine
DX: R63.4 Abnormal weight loss (principal)
CPT/HCPCS: 74176

== ENCOUNTER 2024-09-12 12:43 | Emergency (ER) | payer MEDICARE, SELFPAY ==
[2024-09-12 13:04] VITALS: BP 107/55; PULSE 97; RESP 16; TEMP 36.2; O2SAT 98
--- NOTE | 2024-09-12 13:10 | ED.URI ---
HPI - URI/Sore Throat General Chief Complaint: Upper Respiratory Infection Stated Complaint: Sore Throat Time Seen by Provider: 09/12/24 13:08 Source: patient Mode of arrival: ambulatory Limitations: no limitations History of Present Illness HPI Narrative: Hannah is an 83-year-old female patient presenting to the clinic today with complaints of sore throat, cough, and sinus drainage. She reports symptoms have been going on for several months. Today the sore throat is gotten worse so this prompted her daughter to bring her in to the clinic today. Has been seen by ears Nose and Throat provider in the past for sore throat/sinusitis. MD elicited complaint: sore throat and nasal congestion Related Data Allergies Allergy/AdvReac Type Severity Reaction Status Date / Time No Known Allergies Allergy Verified 09/12/24 13:09 Review of Systems Review of Systems: Pertinent positives per HPI. Patient denies any fever, chills, rash, headache, visual changes, dizziness shortness of breath, chest pain, palpitations, nausea, vomiting, diarrhea, constipation, abdominal pain, or any urinary issues. [facility] Past Medical History Medical History Abdominal pain Ankle fracture Rt x2. Arthritis Cataracts, bilateral Constipation COPD (chronic obstructive pulmonary disease) Depression GERD (gastroesophageal reflux disease) History of COPD History of depression History of gastroesophageal reflux (GERD) History of melena History of peripheral neuropathy History of vaginal delivery x 3 Hx of breast cancer Hx of hemorrhoids IBS (irritable bowel syndrome) LBBB (left bundle branch block) Peripheral neuropathy Ulcer Surgical History Surgical History H/O cataract removal with insertion of prosthetic lens History of bilateral knee arthroplasty History of hemorrhoidectomy History of mastectomy Family History Family History Sibling Family history of diabetes mellitus in first degree relative Family history of malignant neoplasm of breast in first degree relative Patient's sister is in good health Father No family history of malignant neoplasm Family history of lung cancer Mother Patient's mother is Family history of Alzheimer's disease Family history of malignant melanoma Social History Social History Smoking status: Former smoker Tobacco type: cigarettes Second hand tobacco smoke exposure: No Smoking end date: 09/17/98 Alcohol intake: never Substance use: never Substance use type: does not use Do You Feel Safe in your Home?: Yes Lack of Transportation: No Lack of Food: Never True Current Housing: I Have Housing Concerned About Future Housing: No Difficulty Paying Gas/Electric Bills: No Difficulty Paying for Meds: No Currently Unemployed: No Education: High School Diploma/GED Difficulty w/ Childcare or Family Care: No Living arrangements: with family Spiritual care concerns: No Comments At the time of my signature, I reviewed and agree with the nursing past medical, surgical, social, and family history. There is no relevant family history pertinent to the patient complaint. Exam Narrative: General: Well-developed, well nourished, in no apparent distress Head: Normocephalic, atraumatic Eyes: Pupils equally round and reactive to light bilaterally, EOM intact, sclera and conjunctive clear, no discharge, lids normal Ears: TMs intact and congested, ear canals clear, no drainage, grossly hearing normal. Nose: Nares patent, green nasal discharge, moderate inflammation, maxillary sinus tenderness. Mouth: Oral pharynx red without lesions or masses, good dentition, MMM. Postnasal drip Neck: Supple, trachea midline, no enlargement of anterior or posterior cervical nodes, no thyroid masses or goiter palpable. Cardio: Regular rate and rhythm, s1 and s2 normal, no murmur appreciated. Resp: Clear to auscultation bilaterally, no rhonchi, rales, wheezing or rubs Course Course Emergency Course: Portions of this record may have been created with voice recognition software. Level of Care: Express Care Visit Vital Signs Vital signs: Vital Signs Temperature 36.2 C L 09/12/24 13:04 Pulse Rate 97 09/12/24 13:04 Respiratory Rate 16 09/12/24 13:04 Blood Pressure 107/55 L 09/12/24 13:04 Pulse Oximetry 98 09/12/24 13:04 Oxygen Delivery Room Air 09/12/24 13:04 Temperature 36.2 C L 09/12/24 13:04 Pulse Rate 97 09/12/24 13:04 Respiratory Rate 16 09/12/24 13:04 Blood Pressure 107/55 L 09/12/24 13:04 Pulse Oximetry 98 09/12/24 13:04 Oxygen Delivery Room Air 09/12/24 13:04 Vital signs reviewed MDM - URI/Sore Throat MDM Narrative Medical decision making narrative: At the time of visit patient is resting comfortably on the exam table. Patient appears to be nontoxic. Plan: I suspect the patient has sinusitis/pharyngitis. Prescription for Augmentin, prednisone, and Tessalon Perles was sent to pharmacy. Supportive measures were discussed with the patient and they voiced understanding discharge instructions and agrees to treatment plan. Return precautions reviewed Differential Diagnosis Differential diagnosis: Likely upper respiratory infection, otitis media, sinusitis, viral infection, bronchitis, influenza and pharyngitis Discharge Plan Discharge Clinical Impression: Acute bacterial sinusitis Pharyngitis Qualifiers: Pharyngitis/tonsillitis etiology: unspecified etiology Qualified Code(s): J02.9 - Acute pharyngitis, unspecified Patient Disposition: Home, Self-Care Condition: Stable Instructions: Antibiotic Form, Pharyngitis (ED), Rhinosinusitis (ED) Additional Instructions: Take prescription medications only as prescribed-Augmentin, prednisone, and Tessalon Perles Increase fluids and stay well hydrated Tylenol/motrin for pain/fever Flonase and OTC antihistamines as directed Vicks vapor rub to open sinuses Sinus rinses for congestion Cepacol spray, cough drops, throat lozenges, warm tea with honey/lemon, gargle salt water to soothe throat BRAT diet for diarrhea Clear liquids x 24 hours then advance as tolerated for nausea/vomiting Go to the ED if you develop a worsening in your condition- high fever not controlled by Tylenol or Motrin, dehydration, weakness, lethargy, shortness of breath, or chest pain. Follow up with your PCP in 3-5 days if symptoms persist. Patient Language: [place]se Prescriptions: New benzonatate 200 mg capsule 200 mg PO TID 7 Days Qty: 21 0RF prednisone 20 mg tablet 40 mg PO DAILY 5 Days Qty: 10 0RF amoxicillin-pot clavulanate 875-125 mg tablet 1 tablet PO Q12H 10 Days Qty: 20 0RF No Action ipratropium bromide 21 mcg (0.03 %) spray,non-aerosol 2 spray intranasal .qd-tid Qty: 30 3RF Rx Instructions: administer into each nostril. Aim back/up/out bupropion HCl 300 mg tablet extended release 24 hr 300 mg PO QAM Qty: 90 1RF trazodone 50 mg tablet 50 mg PO QHS PRN (Reason: sleep) Qty: 30 2RF gabapentin 300 mg capsule See Rx Instructions PO DAILY Qty: 120 3RF Rx Instructions: take one cap PO in the am, take 1 cap in afternoon, and take 2 in pm PO daily; Follow-up/Referrals: Gilson Wilcox DO [Primary Care Provider] - Time of Disposition: 13:12 Quality NIHSS Nursing Documentation ED NIHSS nursing documentation: reviewed/agree
== END 2024-09-12 13:20 | disposition home or self-care (01) ==
PROVIDERS: Emergency Provider Nurse Practitioner Family; PCP Internal Medicine
DX: J01.90 Acute sinusitis, unspecified (principal); B96.89 Other specified bacterial agents as the cause of diseases classified elsewhere; J02.9 Acute pharyngitis, unspecified; J44.9 Chronic obstructive pulmonary disease, unspecified; Z85.3 Personal history of malignant neoplasm of breast; Z87.891 Personal history of nicotine dependence
CPT/HCPCS: 99213; G0463

== ENCOUNTER 2024-09-18 11:08 | Outpatient (CLI) | payer MEDICARE, SELFPAY ==
--- NOTE | ~2024-09-18 | XR_ITS ---
CHEST RADIOGRAPH, PA AND LATERAL CLINICAL HISTORY: COUGH/SOB/CP . COMPARISON: 10/01/2023 TECHNIQUE: PA and lateral views of the chest. FINDINGS The cardiomediastinal silhouette is unremarkable. The lungs are clear. Visualized osseous structures and soft tissues are unremarkable. Clips within the left axilla. IMPRESSION: No focal infiltrate or effusion. Reviewed, dictated and finalized at location A. [employer]
== END 2024-09-18 11:09 | disposition home or self-care (01) ==
PROVIDERS: PCP Internal Medicine; Visit Provider Internal Medicine
DX: J40 Bronchitis, not specified as acute or chronic (principal)
CPT/HCPCS: 71046

== ENCOUNTER 2025-06-27 04:31 | Inpatient (IN) | payer MEDICARE, SELFPAY ==
--- OUTSIDE RECORDS SUMMARY | 2009-04-15 04:45 | XMS_ITS | Continuity of Care Document ---
Author Organization [facility] Address [address] [place] [address] [place] [address] Phone Care Team Providers Care Network Contractor Name Role Phone Moreno OD, Eric Unavailable Unavailable Procedures Procedure Date Eye Exam Established Pt No Script Office/outpatient Visit, Est Office/outpatient Visit, Est Office/outpatient Visit, Est Advance Directives Directive Yes / No Effective Date File Name No Information Encounters Encounter Description Practice Location Reason(s) For Visit Diagnoses Date Provider Providers Copied on Encounter [facility], [address] [place] [address] [address], [place], [place], [address], tel:[phone] [facility] No Information 0-200 9 Moreno OD Eric. [address], [place], [place], [facility], . tel:[phone] Office/outpat ient Visit, [facility], [address] [place] [address] [address], [place], [place], [address], [place] tel:[phone] [facility] No Information 1-200 8 Moreno OD Eric. [address], [place], [place], [facility], . tel:[phone] Office/outpat ient Visit, [facility], [address] [place] [address] [address], [place], [place], [address], tel:[phone] [facility] No Information 1-200 8 Moreno OD Eric. [address] , [address], [place], [address], [place]. tel:[phone] Office/outpat ient Visit, [facility], [address], [place], [place], [address], [place] tel:[phone] [facility] No Information 4-200 7 Moreno OD Eric. [address] , [address], [place], [address], [place]. tel:[phone] Family History Family Member Type Diagnosis Age At Onset No Information Payers Payer name Insurance type Covered democrat ID Authorkyleea tinoa(s) Medicare [facility] [id number] Social History Type Description Quantity Date Captured [...]
--- OUTSIDE RECORDS SUMMARY | 2016-10-25 06:52 | XMS_ITS | Continuity of Care Document ---
Author Organization [facility] Address [address] [facility] [address] [place] [address] Phone Care Team Providers Care Clinical Statistics Manager Name Role Phone Santino Bernard MD Unavailable Unavailable Allergies, Adverse Reactions, Alerts Substance Reaction Status Criticality No Known Allergies Active No Inform ation Medications Medication Instructions Dosage Effective Dates (start - stop) Status Comments Keflex 500 mg capsule Take 1 tablet ever y 8 hours - Active gabapentin 300 mg capsule - Active citalopram 40 mg tablet - Active Procedures Procedure Date POSTOP FOLLOW-UP VISIT POSTOP FOLLOW-UP VISIT POSTOP FOLLOW-UP VISIT OFFICE/OUTPATIENT VISIT EST OFFICE/OUTPATIENT VISIT EST OFFICE/OUTPATIENT VISIT [facility] Advance Directives Directive Yes / No Effective Date File Name No Information Encounters Encounter Description Practice Location Reason(s) For Visit Diagnoses Date Provider Providers Copied on Encounter [facility], [address], [address], [place] tel:[phone] [facility] No Information 7 Marco Antonio [address], [place], [place], [address] . tel: [phone] [facility], [address] [facility] [address], [place], [address], [place] tel:[phone] [facility] [place] S/P Lt knee arthroscopy (chief complaint) Status post arthroscopy of left knee 0 7201 7 Marco Antonio De. [address], [place], [place], [address] . tel: [phone] [facility], [address] [address], [place], [address], [place] tel:[phone] [facility] [place] S/p Lt knee arthroscopy (chief complaint) Status post arthroscopy of left knee 7 Marco Antonio De. [address], [place], [place], [address] . tel: [phone] [facility], [address] [place] [address], [place], [address], [place] tel:[phone] [facility] [place] S/P Lt knee arthroscopy (chief complaint) Status post arthroscopy of left knee 7 Marco Antonio De. [address], [place], [place], [address] . tel: [phone] [facility], [address] [place] [address], [place], [address], [place] tel:[phone] [facility] [place] Other tear of medial meniscus of left knee as current injury, subsequent encounterOthe r meniscus derangements, other medial meniscus, left knee 6 Marco Antonio De. [address], [place], [place], [address] . tel: [phone] OFFICE/OUTPA TIENT VISIT EST [facility], [address] [place] [address], [address], [place] tel:[phone] [facility] [place] Left anterior knee painPrimary osteoarthriti s of left knee 6 Marco Antonio De. [address], [place], [place], [address] . tel: [phone] OFFICE/OUTPA TIENT VISIT EST [facility], [address] [place] [address], [place], [address], [place] tel:[phone] [facility] [place] Follow Up of left knee pain (chief complaint) Left anterior knee pain 6 [address], [place], [place], [address] . tel: [phone] OFFICE/OUTPA TIENT VISIT [facility], [address] [facility], [place], [address], [place] tel:[phone] [facility] [address] left knee pain (chief complaint) Primary osteoarthriti s of right kneePrimary osteoarthriti s of left knee 6 Marco Antonio De. [address], [place], [place], [address] . tel: [phone] Family History Family Member Type Diagnosis Age At Onset Father Problem (finding) Father Problem (finding) 72 Father Problem (finding) malignant neop lasm of lung (Cause Of ) 72 Payers Payer name Insurance type Covered green party ID Nae singh(s) Medicare E2 OT [id number] [place] Insurance OT [id number] Social History Type Description Quantity Date Captured [...]
[2025-06-27] VITALS (58 sets, daily range): BP systolic 123–163; BP diastolic 64–98; PULSE 70–94; RESP 15–26; TEMP 36.6–36.8; O2SAT 95–99; BMI 18.7
--- NOTE | 2025-06-27 | ECHO_ITS ---
Patient Info Name: Hannah Acosta Age: 84 years : 1940 Gender: Female Ht: 65 in Wt: 111 lbs BSA: 1.51 m2 HR: 77 bpm BP: 140 / 81 mmHg Technical Quality: Poor Exam Date: 06/27/2025 1:29 PM Patient Status: I Admit Date: 06/27/2025 Exam Type: CA echo dop color flow w con Complete two-dimensional, color flow and Doppler transthoracic echocardiogram is performed with contrast to opacify the left ventricle and to improve the deliniation of the left ventricle endocardial borders. Staff Referring Physician: Jluis Rothman Teletype Clerk: Melba Louise Attending Provider: Epi Wilson MD Contrast/Agitated Saline Contrast/Ag. Saline: Definity Amount: 2.00 ml Summary 1. Technically suboptimal study due to poor sonographic images. 2. Definity contrast administered improved wall motion interpretation. 3. Left ventricular chamber dimension is severely enlarged. 4. Left ventricular systolic function is severely globally reduced, estimated at 15-20. 5. There is mild concentric increased left ventricular wall thickness. 6. The left ventricular diastolic function is grade I diastolic dysfunction. 7. E/e' 9 is minimally elevated. 8. Left atrial chamber dimension is mildly enlarged. 9. The aortic valve is not well visualized. Cannot determine number of aortic valve leaflets. 10. There is moderate aortic valve sclerosis. 11. There is mild aortic valve stenosis based on a peak velocity of 196 cm/s, mean gradient of 8 mmHg, and aortic valve area of 1.6 cm2. Dimensionless index 0.49 is not suggestive of severe aortic stenosis in setting of cardiomyopathy. 12. The mitral valve has moderately calcified leaflets and a severely calcified annulus. 13. There is trace tricuspid valve regurgitation. 14. Dilated inferior vena cava with >50% collapse upon inspiration consistent with elevated right atrial pressure, 10 mmHg. Left Ventricle E/e' 9 is minimally elevated. Left ventricular chamber dimension is severely enlarged. Left ventricular systolic function is severely globally reduced, estimated at 15-20. There is mild concentric increased left ventricular wall thickness. The left ventricular diastolic function is grade I diastolic dysfunction. Definity contrast administered improved wall motion interpretation. Technically suboptimal study due to poor sonographic images. Right Ventricle Right ventricular chamber dimension is normal. Right ventricular systolic function is normal and with normal TAPSE 1.8 cm. Left Atria Left atrial chamber dimension is mildly enlarged. Right Atria Right atrial chamber dimension is normal. Aortic Valve The aortic valve is not well visualized. Cannot determine number of aortic valve leaflets. There is moderate aortic valve sclerosis. There is mild aortic valve stenosis based on a peak velocity of 196 cm/s, mean gradient of 8 mmHg, and aortic valve area of 1.6 cm2. Dimensionless index 0.49 is not suggestive of severe aortic stenosis in setting of cardiomyopathy. There is no aortic valve regurgitation. Pulmonic Valve There is no pulmonic regurgitation. Mitral Valve The mitral valve has moderately calcified leaflets and a severely calcified annulus. There is no mitral valve stenosis. There is no mitral valve regurgitation. Tricuspid Valve There is trace tricuspid valve regurgitation. RVSP is not measured due to an inadequate TR jet. Pericardium/Pleural There is no pericardial effusion. Inferior Vena Cava Dilated inferior vena cava with >50% collapse upon inspiration consistent with elevated right atrial pressure, 10 mmHg. Aorta The aortic root size at the sinus of Valsalva is normal. Left Ventricular Outflow Tract Name Value Normal LVOT 2D LVOT Diameter 2.0 cm LVOT Doppler LVOT Peak Velocity 94 cm/s LVOT Peak Gradient 3 mmHg LVOT Mean Gradient 1 mmHg LVOT VTI 20 cm LVOT VTI/AV VTI Ratio 0.5 LVOT Stroke Volume 63 ml LVOT CO 4.7 l/min LVOT CI 3.1 l/min/m2 Pulmonic Valve Name Value Normal RVOT Doppler RVOT Peak Velocity 72 cm/s RVOT Peak Gradient 2 mmHg PV Doppler PV Peak Velocity 148 cm/s PV Peak Gradient 9 mmHg Mitral Valve Name Value Normal MV Diastolic Function MV E Peak Velocity 69 cm/s MV A Peak Velocity 127 cm/s MV E/A 0.5 MV Decel Time (PW) 111 ms MV Annular TDI MV E/e' (Septal) 15.3 MV E/e' (Lateral) 7.1 MV E/e' (Average) 11.2 Tricuspid Valve Name Value Normal Estimated PAP/RSVP RA Pressure 10 mmHg <=5 Aortic Valve Name Value Normal AV Doppler AV Peak Velocity 196 cm/s AV Peak Gradient 15 mmHg AV Mean Gradient 8 mmHg AV VTI 40 cm AV Area (Cont Eq VTI) 1.6 cm2 >=3.0 AV Area (Cont Eq Nikos) 1.5 cm2 AV DI (Nikos) 0.48 AV Regurgitation 2D LVOT Area 3.1 cm2 Ventricles Name Value Normal LV Dimensions 2D/MM IVS Diastolic Thickness (2D) 0.7 cm 0.6-1.0 LVID Diastole (2D) 5.4 cm 3.8-5.2 LVIW Diastolic Thickness (2D) 1.3 cm 0.6-0.9 LVID Systole (2D) 4.9 cm 2.2-3.5 LVOT Diameter 2.0 cm LV Mass (2D Cubed) 205.56 g 67.00-162.00 LV Mass Index (2D Cubed) 136 g/m2 43-95 Relative Wall Thickness (2D) 0.49 <=0.42 LV Fractional Shortening/Ejection Fraction 2D/MM LV Fractional Shortening (2D) 9 % 27-45 LV EF (2D Teichholz) 20 % LV Diastolic Volume (4C MOD) 101 ml LV EF (4C MOD) 9 % LV Diastolic Volume (2C MOD) 101 ml LV EF (2C MOD) 41 % LV Diastolic Volume (BP MOD) 101 ml 46-106 LV Diastolic Volume Index (BP MOD) 67 ml/m2 29-61 LV Systolic Volume (BP MOD) 74 ml 14-42 LV Systolic Volume Index (BP MOD) 49 ml/m2 8-24 LV EF (BP MOD) 26 % 54-74 LV Diastolic Length (4C) 7.4 cm LV Systolic Length (4C) 7.5 cm LV Stroke Volume (4C MOD) 9 ml Atria Name Value Normal LA Dimensions LA Volume (4C A-L) 37 ml LA Volume (BP A-L) 41 ml RA Dimensions RA Systolic Major Wray Length (4C) 4.1 cm 2.2-2.8 RA Area (4C) 9.9 cm2 <=18.0 Report Signatures
--- NOTE | ~2025-06-27 | CT_ITS ---
CHEST ABDOMEN PELVIS WITH CONTRAST CLINICAL HISTORY: AMS . COMPARISON: CT abdomen and pelvis without contrast 03/25/2024 Chest x-ray 09/18/2024 TECHNIQUE: Helical CT performed from thoracic inlet to symphysis pubis IV contrast information not listed in PACS Coronal, sagittal reformats. Multi planar MIPS CT images acquired with automatic exposure control for dose reduction DLP: 364 mGy-cm FINDINGS: CHEST- Lungs/Pleura: Emphysema. Hyperinflation. Scattered scarring. Thoracic Aorta: No dissection. No aneurysm. Atherosclerotic disease. Left subclavian artery stenosis. Pulmonary arteries: Normal caliber. Heart: Coronary artery calcifications. Small to moderate pericardial fluid anteriorly. Tracheobronchial tree: Patent. Nodes: No enlarged nodes. Small hilar nodes. Mediastinal calcification. Bones: No acute bony abnormality. Soft tissues: Unremarkable. ABDOMEN/PELVIS- Liver: Small ill-defined enhancing focus segment 3, probably hemangioma. Gallbladder: Unremarkable. Spleen: Unremarkable. Pancreas: Unremarkable. Adrenal glands: Unremarkable. Kidneys: A few cysts. Right kidney- No hydronephrosis. No renal stones. Left kidney- No hydronephrosis. No renal stones. Circumaortic renal vein. Distal esophagus/stomach: Unremarkable. Small bowel loops: Normal caliber and wall thickness. Colon: Diverticula. Normal caliber and wall thickness. Normal appendix, subhepatic. Nodes: No enlarged nodes. Peritoneum: No ascites. No free air. Urinary bladder: Unremarkable. Uterus: Atrophic. Adnexa: No masses. Bones: No acute bony abnormality. Soft tissues: Unremarkable. Aorta: No aneurysm or dissection. Atherosclerotic disease. IVC: Unremarkable. Main portal vein/SMV/splenic vein: Patent. IMPRESSION: CHEST- 1. Small pericardial effusion. 2. Emphysema. Recommend annual screening CT chest. 3. Otherwise no acute abnormality. ABDOMEN/PELVIS- 1. No acute findings. Reviewed, dictated and finalized at location R.
--- NOTE | ~2025-06-27 | CT_ITS ---
CT HEAD NON-CONTRAST Clinical History: altered mental status Comparison: 12/20/2023 Technique: Unenhanced axial images skull base to vertex Coronal, sagittal reformats CT images acquired with automatic exposure control for dose reduction DLP: 681 mGy-cm Findings: Chronic white matter microvascular ischemic changes. Sulci, ventricles: Unremarkable. No intracerebral hemorrhage. No evidence acute territorial infarct. No mass effect, midline shift. Bony calvarium intact. Visualized paranasal sinuses: Clear. Mastoid air cells: Clear. IMPRESSION: 1. No acute intracranial findings. Reviewed, dictated and finalized at location R.
--- NOTE | ~2025-06-27 | XR_ITS ---
Examination: XR chest 1V Clinical History: not feeling well Comparison: 09/18/2024 Technique: Portable AP Findings: Heart size normal. Emphysema. Scarring. No acute bony abnormality. IMPRESSION: 1. No acute cardiopulmonary findings given portable technique. Reviewed, dictated and finalized at location R.
--- NOTE | 2025-06-27 04:43 | ED_ITS ---
HPI - General Adult General Chief complaint: Weakness <Jluis Rothman DO - Last Filed: 06/27/25 08:16> Stated complaint: weakness <Jluis Rothman DO - Last Filed: 06/27/25 08:16> Time Seen by Provider: 06/27/25 04:37 <Jluis Rothman DO - Last Filed: 06/27/25 08:16> Source: patient, family and EMS <Jluis Rothman DO - Last Filed: 06/27/25 08:16> Mode of arrival: EMS <Jluis Rothman DO - Last Filed: 06/27/25 08:16> Limitations: altered mental status <Jluis Rothman DO - Last Filed: 06/27/25 08:16> History of Present Illness HPI narrative: Patient is an 84-year-old female presents to the emergency department via EMS for a episode of unresponsiveness. Patient reportedly had to be carried by EMS to the stretcher to bring her in. Patient reports generally not feeling well, started tonight. Patient notes that her right hand is cold. Patient is unable to describe what she means by not feeling well. Patient denies chest pain or difficulty breathing. Patient denies abdominal pain. Patient denies dysuria. Patient denies any new or change medications. Patient denies fever. Patient denies any recent injuries or recent illness. Patient denies diarrhea, nausea, vomiting, cough. Patient admits to feeling generally weak without any focal weakness. Patient denies any vision changes. Patient does not know what city or hospital she is at right now, patient knows her name, patient believes that is the [facility]. <Jluis Rothman DO - Last Filed: 06/27/25 08:16> Related Data Allergies/adverse reactions: Allergies Allergy/AdvReac Type Severity Reaction Status Date / Time No Known Allergies Allergy Verified 03/06/25 15:12 <Jluis Rothman DO - Last Filed: 06/27/25 08:16> Review of Systems 2 Review of Systems: ROS unobtainable: Yes unobtainable due to mental status <Jluis Rothman DO - Last Filed: 06/27/25 08:16> [facility] Past Medical History Medical History: Medical History Constipation Abdominal pain History of vaginal delivery x 3 Hx of breast cancer Depression Ankle fracture Rt x2. Arthritis History of melena GERD (gastroesophageal reflux disease) IBS (irritable bowel syndrome) Ulcer Hx of hemorrhoids COPD (chronic obstructive pulmonary disease) LBBB (left bundle branch block) Peripheral neuropathy Cataracts, bilateral History of COPD History of peripheral neuropathy History of gastroesophageal reflux (GERD) History of depression <Jluis Rothman, - Last Filed: 06/27/25 08:16> Surgical History Surgical History: Surgical History History of bilateral knee arthroplasty History of hemorrhoidectomy H/O cataract removal with insertion of prosthetic lens History of mastectomy <Jluis Rothman, DO - Last Filed: 06/27/25 08:16> Family History Family History: Family History Sibling Family history of diabetes mellitus in first degree relative Family history of malignant neoplasm of breast in first degree relative Patient's sister is in good health Father No family history of malignant neoplasm Family history of lung cancer Mother Patient's mother is Family history of Alzheimer's disease Family history of malignant melanoma <Jluis Rothman, - Last Filed: 06/27/25 08:16> Social History Social History: Social History Social History: Caffeine-coffee Smoking status: Former smoker Tobacco type: cigarettes Second hand tobacco smoke exposure: No Smoking end date: 09/17/98 Alcohol intake: never Substance use: never Substance use type: does not use Do You Feel Safe in your Home?: Yes Lack of Transportation: No Lack of Food: Never True Current Housing: I Have Housing Concerned About Future Housing: No Difficulty Paying Gas/Electric Bills: No Difficulty Paying for Meds: No Currently Unemployed: No Education: High School Diploma/GED Difficulty w/ Childcare or Family Care: No Living arrangements: with family Spiritual care concerns: No <Jluis Rothman DO - Last Filed: 06/27/25 08:16> Exam 2 Narrative: CONST: No acute distress. HENMT: Head is normocephalic and atraumatic. Dry mucous membranes. No posterior oropharynx erythema. EYES: No scleral icterus. No conjunctival injection or pallor. PERRL. No nystagmus. No gaze deviation. NECK: No meningeal signs. RESP: Able to speak in full sentences. Normal respiratory effort. CTAB. CARDIO: Regular rate. [Regular] rhythm. 2+ DP and radial pulses bilaterally. GI: Nondistended. No tenderness to palpation. Soft. : No CVA tenderness to palpation. SKIN: No rashes or lesions noted on exposed skin. NEURO: Oriented x1. Moves all extremities. Follows basic commands. No drift of the bilateral upper extremities her bilateral lower extremities testing. No facial asymmetry. Speech is clear and fluent. Sensation intact to light touch between the bilateral upper extremities in addition to the bilateral lower extremities. No emile inattention or extinction. EXTREM/MSK/BACK: No pedal edema. No extremity tenderness to palpation or palpable deformities. <Jluis Rothman DO - Last Filed: 06/27/25 08:16> Course Course Emergency Course: RinaYCH: 84-year-old female presenting for an episode of generalized weakness. Patient has dementia and is a poor historian. The only complaint she is voicing to me is that she feels ?icky. Her physical exam is unremarkable. She has no evidence of trauma. Extensive workup significant for elevated troponins. Initial 0.062 up trending to 3.7. EKG shows a left bundle branch block. No previous EKGs to compare. Patient will be placed on heparin for possible NSTEMI. Cardiology was consulted. Patient placed in the IMU. <Parvez eMlo MD - Last Filed: 06/27/25 10:48> Vital Signs Vital signs: Vital Signs Temperature 98.1 F 06/27/25 04:32 Pulse Rate 70 06/27/25 04:32 Respiratory Rate 15 06/27/25 04:32 Blood Pressure 156/87 H 06/27/25 04:32 Pulse Oximetry 97 06/27/25 04:32 Oxygen Delivery Room Air 06/27/25 04:32 Temperature 98.1 F 06/27/25 04:32 Pulse Rate 86 06/27/25 08:03 Respiratory Rate 20 06/27/25 08:03 Blood Pressure 147/90 H 06/27/25 08:03 Pulse Oximetry 96 06/27/25 08:03 Oxygen Delivery Room Air 06/27/25 04:32 <Jluis Rothman DO - Last Filed: 06/27/25 08:16> Vital Signs Temperature 98.1 F 06/27/25 04:32 Pulse Rate 70 06/27/25 04:32 Respiratory Rate 15 06/27/25 04:32 Blood Pressure 156/87 H 06/27/25 04:32 Pulse Oximetry 97 06/27/25 04:32 Oxygen Delivery Room Air 06/27/25 04:32 Temperature 98.1 F 06/27/25 04:32 Pulse Rate 86 06/27/25 08:03 Respiratory Rate 20 06/27/25 08:03 Blood Pressure 147/90 H 06/27/25 08:03 Pulse Oximetry 96 06/27/25 08:03 Oxygen Delivery Room Air 06/27/25 04:32 <Parvez Melo MD - Last Filed: 06/27/25 10:48> Medical Decision Making MDM Narrative Medical decision making narrative: Patient presents with the above complaint. Initial vitals are remarkable for no significant abnormalities. Physical examination as noted above. Differential diagnosis includes was not limited to: Metabolic derangement, ACS, pneumonia, UTI, intracranial hemorrhage, TIA, thyroid dysfunction, viral syndrome. Plan discussed: Laboratory analysis, EKG, CT head, CT chest and pelvis, continues cardiac monitoring, continuous pulse oximetry, IV fluids. EKG reveals sinus rhythm with occasional supraventricular premature complexes. Possible right ventricular conduction delay. Left bundle-branch block. Rate is 78. [place] is left axis deviation. QRS duration is 161 milliseconds. No Sgarbossa criteria. CBC is without any significant abnormalities. Coags are within normal limits. Comprehensive metabolic panel reveals a glucose 134, AST of 45. BNP is 3610. CRP is less than 0.5. Troponin is 0.062. Total creatine kinase is 106. Lipase is 52. Procalcitonin 0.1. TSH is 6.89. Urinalysis is without any significant abnormalities. Salicylate less 1.0. UDS is negative. Acetaminophen levels less than 10. Ethyl alcohol level is less than 10. COVID and influenza and RSV testing are negative. Patient signed out to oncoming physician at shift change. <Jluis Rothman DO - Last Filed: 06/27/25 08:16> Vital Signs Vital Signs: Vital Signs Temperature 98.1 F 06/27/25 04:32 Pulse Rate 70 06/27/25 04:32 Respiratory Rate 15 06/27/25 04:32 Blood Pressure 156/87 H 06/27/25 04:32 Pulse Oximetry 97 06/27/25 04:32 Oxygen Delivery Room Air 06/27/25 04:32 Temperature 98.1 F 06/27/25 04:32 Pulse Rate 86 06/27/25 08:03 Respiratory Rate 20 06/27/25 08:03 Blood Pressure 147/90 H 06/27/25 08:03 Pulse Oximetry 96 06/27/25 08:03 Oxygen Delivery Room Air 06/27/25 04:32 <Jluis Rothman DO - Last Filed: 06/27/25 08:16> Vital Signs Temperature 98.1 F 06/27/25 04:32 Pulse Rate 70 06/27/25 04:32 Respiratory Rate 15 06/27/25 04:32 Blood Pressure 156/87 H 06/27/25 04:32 Pulse Oximetry 97 06/27/25 04:32 Oxygen Delivery Room Air 06/27/25 04:32 Temperature 98.1 F 06/27/25 04:32 Pulse Rate 86 06/27/25 08:03 Respiratory Rate 20 06/27/25 08:03 Blood Pressure 147/90 H 06/27/25 08:03 Pulse Oximetry 96 06/27/25 08:03 Oxygen Delivery Room Air 06/27/25 04:32 <Parvez Melo MD - Last Filed: 06/27/25 10:48> Lab Data Result diagrams: 06/27/25 04:55 06/27/25 04:54 <Jluis Rothman DO - Last Filed: 06/27/25 08:16> Labs: Lab Results 06/27/25 06/27/25 06/27/25 Range/Units 04:40 04:54 04:55 WBC 6.2 (4.5-10.0) K/mm3 RBC 4.45 (4.2-5.4) M/mm3 Hgb 13.2 (12.0-15.0) g/dL Hct 40.9 (37.0-47.0) % MCV 91.9 (80-100) fl MCH 29.7 (26-34) pg MCHC 32.3 (32-36) g/dl RDW 12.7 (11.5-14.5) % Plt Count 184 (150-375) k/mm3 MPV 10.6 H (7.4-10.4) fl Immature Gran % (Auto) 0.2 (0-0.5) % Neut % (Auto) 36.1 L (45.5-73.1) % Lymph % (Auto) 46.9 H (18.3-44.2) % [place] % (Auto) 7.7 (2.6-8.5) % Eos % (Auto) 8.0 H (0-4.4) % Baso % (Auto) 1.1 (0.2-1.2) % Lymph # (Auto) 2.92 (0.9-3.2) K/mm3 [place] # (Auto) 0.5 (0.1-0.6) K/mm3 Eos # (Auto) 0.5 H (0-0.3) K/mm3 Baso # (Auto) 0.1 (0.0-0.1) K/mm3 Abs Immat Gran (auto) 0.01 (0.00-0.031) K/mm3 Absolute Neuts (auto) 2.2 (1.3-6.7) K/mm3 Absolute Nucleated RBC 0.000 (0.0-0.012) K/mm3 Nucleated RBC % 0.0 (0.0-0.2) % PT 13.4 (11.1-14.7) Seconds INR 1.0 APTT 22.4 (22.3-36.8) Seconds Sodium 136 L (137-145) mmol/L Potassium 3.9 (3.4-5.0) mmol/L Chloride 104 (98-107) mmol/L Carbon Dioxide 24 (22-30) mmol/L Anion Gap 8 (4-12) mmol/L BUN 16 (7-17) mg/dL Creatinine 0.82 (0.7-1.0) mg/dL Estim Creat Clear Calc Not Reportable Estimated GFR > 60 (59 - ) Glucose 134 H (65-110) mg/dL POC Capillary Glucose 131 H (65-105) mg/dl Lactic Acid 1.2 (0.7-2.0) mmol/L Calcium 9.4 (8.4-10.2) mg/dL Magnesium 2.0 (1.6-2.3) mg/dL Total Bilirubin 0.8 (0.2-1.3) mg/dL AST 45 H (14-36) U/L ALT 31 (6-35) U/L Alkaline Phosphatase 202 H (38-126) U/L Ammonia (9-30) umol/L Total Creatine Kinase 106 (30-135) U/L Troponin I 0.062 H* Cancelled (0.000-0.034) ng/mL C-Reactive Protein < 0.5 (<1.0) mg/dL NT-Pro-B Natriuret Pep 3610 H (19.9-100) pg/mL Total Protein 7.9 (6.3-8.2) g/dL Albumin 4.1 (3.5-5.1) g/dL Lipase 52 (23-300) U/L Procalcitonin 0.1 ng/mL TSH (Reflex) 6.890 H (0.465-4.68) uIU/mL Free T4 1.63 (0.78-2.19) ng/dL Total T3 0.92 (0.82-1.58) NG/ML Urine Color (Yellow) Urine Appearance (Clear) Urine pH (5.0-9.0) Ur Specific Ace (1.001-1.035) Urine Protein (Negative) mg/dL Urine Glucose (UA) (Negative) mg/dL Urine Ketones (Negative) mg/dL Ur Blood (Man) (Negative) Urine Nitrate (Negative) Urine Bilirubin (Negative) Urine Urobilinogen (<2.0) mg/dL Leukocyte Esterase Rfl (Negative) ESTRELLA/UL Salicylates (2-20) mg/dL Urine Opiates Screen (Negative) Urine Methadone Screen (Negative) Acetaminophen (10-30) ug/mL Ur Barbiturates Screen (Negative) Ur Phencyclidine Scrn (Negative) Ur Amphetamine Screen (Negative) U Benzodiazepines Scrn (Negative) Urine Cocaine Screen (Negative) U Cannabinoids Screen (Negative) Ethyl Alcohol (<10) mg/dL Influenza A (RT-PCR) (Negative) Influenza B (RT-PCR) (Negative) RSV (RT-PCR) (Negative) SARS-CoV-2 RNA (RT-PCR) (Negative) Blood Type Antibody Screen 06/27/25 06/27/25 06/27/25 Range/Units 04:56 05:15 07:59 WBC (4.5-10.0) K/mm3 RBC (4.2-5.4) M/mm3 Hgb (12.0-15.0) g/dL Hct (37.0-47.0) % MCV (80-100) fl MCH (26-34) pg MCHC (32-36) g/dl RDW (11.5-14.5) % Plt Count (150-375) k/mm3 MPV (7.4-10.4) fl Immature Gran % (Auto) (0-0.5) % Neut % (Auto) (45.5-73.1) % Lymph % (Auto) (18.3-44.2) % [place] % (Auto) (2.6-8.5) % Eos % (Auto) (0-4.4) % Baso % (Auto) (0.2-1.2) % Lymph # (Auto) (0.9-3.2) K/mm3 [place] # (Auto) (0.1-0.6) K/mm3 Eos # (Auto) (0-0.3) K/mm3 Baso # (Auto) (0.0-0.1) K/mm3 Abs Immat Gran (auto) (0.00-0.031) K/mm3 Absolute Neuts (auto) (1.3-6.7) K/mm3 Absolute Nucleated RBC (0.0-0.012) K/mm3 Nucleated RBC % (0.0-0.2) % PT (11.1-14.7) Seconds INR APTT (22.3-36.8) Seconds Sodium (137-145) mmol/L Potassium (3.4-5.0) mmol/L Chloride (98-107) mmol/L Carbon Dioxide (22-30) mmol/L Anion Gap (4-12) mmol/L BUN (7-17) mg/dL Creatinine (0.7-1.0) mg/dL Estim Creat Clear Calc Estimated GFR (59 - ) Glucose (65-110) mg/dL POC Capillary Glucose (65-105) mg/dl Lactic Acid (0.7-2.0) mmol/L Calcium (8.4-10.2) mg/dL Magnesium (1.6-2.3) mg/dL Total Bilirubin (0.2-1.3) mg/dL AST (14-36) U/L ALT (6-35) U/L Alkaline Phosphatase (38-126) U/L Ammonia < 9 L (9-30) umol/L Total Creatine Kinase (30-135) U/L Troponin I 3.780 H* D (0.000-0.034) ng/mL C-Reactive Protein (<1.0) mg/dL NT-Pro-B Natriuret Pep (19.9-100) pg/mL Total Protein (6.3-8.2) g/dL Albumin (3.5-5.1) g/dL Lipase (23-300) U/L Procalcitonin ng/mL TSH (Reflex) (0.465-4.68) uIU/mL Free T4 (0.78-2.19) ng/dL Total T3 (0.82-1.58) NG/ML Urine Color Yellow (Yellow) Urine Appearance Clear (Clear) Urine pH 6.0 (5.0-9.0) Ur Specific Ace 1.009 (1.001-1.035) Urine Protein Negative (Negative) mg/dL Urine Glucose (UA) Negative (Negative) mg/dL Urine Ketones Negative (Negative) mg/dL Ur Blood (Man) Negative (Negative) Urine Nitrate Negative (Negative) Urine Bilirubin Negative (Negative) Urine Urobilinogen 0.2 (<2.0) mg/dL Leukocyte Esterase Rfl Negative (Negative) ESTRELLA/UL Salicylates < 1.0 L (2-20) mg/dL Urine Opiates Screen Negative (Negative) Urine Methadone Screen Negative (Negative) Acetaminophen < 10 L (10-30) ug/mL Ur Barbiturates Screen Negative (Negative) Ur Phencyclidine Scrn Negative (Negative) Ur Amphetamine Screen Negative (Negative) U Benzodiazepines Scrn Negative (Negative) Urine Cocaine Screen Negative (Negative) U Cannabinoids Screen Negative (Negative) Ethyl Alcohol < 10 (<10) mg/dL Influenza A (RT-PCR) Negative (Negative) Influenza B (RT-PCR) Negative (Negative) RSV (RT-PCR) Negative (Negative) SARS-CoV-2 RNA (RT-PCR) Negative (Negative) Blood Type O Positive Antibody Screen Negative <Jluis Rothman, DO - Last Filed: 06/27/25 08:16> Lab Results 06/27/25 06/27/25 06/27/25 Range/Units 04:40 04:54 04:55 WBC 6.2 (4.5-10.0) K/mm3 RBC 4.45 (4.2-5.4) M/mm3 Hgb 13.2 (12.0-15.0) g/dL Hct 40.9 (37.0-47.0) % MCV 91.9 (80-100) fl MCH 29.7 (26-34) pg MCHC 32.3 (32-36) g/dl RDW 12.7 (11.5-14.5) % Plt Count 184 (150-375) k/mm3 MPV 10.6 H (7.4-10.4) fl Immature Gran % (Auto) 0.2 (0-0.5) % Neut % (Auto) 36.1 L (45.5-73.1) % Lymph % (Auto) 46.9 H (18.3-44.2) % [place] % (Auto) 7.7 (2.6-8.5) % Eos % (Auto) 8.0 H (0-4.4) % Baso % (Auto) 1.1 (0.2-1.2) % Lymph # (Auto) 2.92 (0.9-3.2) K/mm3 [place] # (Auto) 0.5 (0.1-0.6) K/mm3 Eos # (Auto) 0.5 H (0-0.3) K/mm3 Baso # (Auto) 0.1 (0.0-0.1) K/mm3 Abs Immat Gran (auto) 0.01 (0.00-0.031) K/mm3 Absolute Neuts (auto) 2.2 (1.3-6.7) K/mm3 Absolute Nucleated RBC 0.000 (0.0-0.012) K/mm3 Nucleated RBC % 0.0 (0.0-0.2) % PT 13.4 (11.1-14.7) Seconds INR 1.0 APTT 22.4 (22.3-36.8) Seconds Sodium 136 L (137-145) mmol/L Potassium 3.9 (3.4-5.0) mmol/L Chloride 104 (98-107) mmol/L Carbon Dioxide 24 (22-30) mmol/L Anion Gap 8 (4-12) mmol/L BUN 16 (7-17) mg/dL Creatinine 0.82 (0.7-1.0) mg/dL Estim Creat Clear Calc Not Reportable Estimated GFR > 60 (59 - ) Glucose 134 H (65-110) mg/dL POC Capillary Glucose 131 H (65-105) mg/dl Lactic Acid 1.2 (0.7-2.0) mmol/L Calcium 9.4 (8.4-10.2) mg/dL Magnesium 2.0 (1.6-2.3) mg/dL Total Bilirubin 0.8 (0.2-1.3) mg/dL AST 45 H (14-36) U/L ALT 31 (6-35) U/L Alkaline Phosphatase 202 H (38-126) U/L Ammonia (9-30) umol/L Total Creatine Kinase 106 (30-135) U/L Troponin I 0.062 H* Cancelled (0.000-0.034) ng/mL C-Reactive Protein < 0.5 (<1.0) mg/dL NT-Pro-B Natriuret Pep 3610 H (19.9-100) pg/mL Total Protein 7.9 (6.3-8.2) g/dL Albumin 4.1 (3.5-5.1) g/dL Lipase 52 (23-300) U/L Procalcitonin 0.1 ng/mL TSH (Reflex) 6.890 H (0.465-4.68) uIU/mL Free T4 1.63 (0.78-2.19) ng/dL Total T3 0.92 (0.82-1.58) NG/ML Urine Color (Yellow) Urine Appearance (Clear) Urine pH (5.0-9.0) Ur Specific Ace (1.001-1.035) Urine Protein (Negative) mg/dL Urine Glucose (UA) (Negative) mg/dL Urine Ketones (Negative) mg/dL Ur Blood (Man) (Negative) Urine Nitrate (Negative) Urine Bilirubin (Negative) Urine Urobilinogen (<2.0) mg/dL Leukocyte Esterase Rfl (Negative) ESTRELLA/UL Salicylates (2-20) mg/dL Urine Opiates Screen (Negative) Urine Methadone Screen (Negative) Acetaminophen (10-30) ug/mL Ur Barbiturates Screen (Negative) Ur Phencyclidine Scrn (Negative) Ur Amphetamine Screen (Negative) U Benzodiazepines Scrn (Negative) Urine Cocaine Screen (Negative) U Cannabinoids Screen (Negative) Ethyl Alcohol (<10) mg/dL Influenza A (RT-PCR) (Negative) Influenza B (RT-PCR) (Negative) RSV (RT-PCR) (Negative) SARS-CoV-2 RNA (RT-PCR) (Negative) Blood Type Antibody Screen 06/27/25 06/27/25 06/27/25 Range/Units 04:56 05:15 07:59 WBC (4.5-10.0) K/mm3 RBC (4.2-5.4) M/mm3 Hgb (12.0-15.0) g/dL Hct (37.0-47.0) % MCV (80-100) fl MCH (26-34) pg MCHC (32-36) g/dl RDW (11.5-14.5) % Plt Count (150-375) k/mm3 MPV (7.4-10.4) fl Immature Gran % (Auto) (0-0.5) % Neut % (Auto) (45.5-73.1) % Lymph % (Auto) (18.3-44.2) % [place] % (Auto) (2.6-8.5) % Eos % (Auto) (0-4.4) % Baso % (Auto) (0.2-1.2) % Lymph # (Auto) (0.9-3.2) K/mm3 [place] # (Auto) (0.1-0.6) K/mm3 Eos # (Auto) (0-0.3) K/mm3 Baso # (Auto) (0.0-0.1) K/mm3 Abs Immat Gran (auto) (0.00-0.031) K/mm3 Absolute Neuts (auto) (1.3-6.7) K/mm3 Absolute Nucleated RBC (0.0-0.012) K/mm3 Nucleated RBC % (0.0-0.2) % PT (11.1-14.7) Seconds INR APTT (22.3-36.8) Seconds Sodium (137-145) mmol/L Potassium (3.4-5.0) mmol/L Chloride (98-107) mmol/L Carbon Dioxide (22-30) mmol/L Anion Gap (4-12) mmol/L BUN (7-17) mg/dL Creatinine (0.7-1.0) mg/dL Estim Creat Clear Calc Estimated GFR (59 - ) Glucose (65-110) mg/dL POC Capillary Glucose (65-105) mg/dl Lactic Acid (0.7-2.0) mmol/L Calcium (8.4-10.2) mg/dL Magnesium (1.6-2.3) mg/dL Total Bilirubin (0.2-1.3) mg/dL AST (14-36) U/L ALT (6-35) U/L Alkaline Phosphatase (38-126) U/L Ammonia < 9 L (9-30) umol/L Total Creatine Kinase (30-135) U/L Troponin I 3.780 H* D (0.000-0.034) ng/mL C-Reactive Protein (<1.0) mg/dL NT-Pro-B Natriuret Pep (19.9-100) pg/mL Total Protein (6.3-8.2) g/dL Albumin (3.5-5.1) g/dL Lipase (23-300) U/L Procalcitonin ng/mL TSH (Reflex) (0.465-4.68) uIU/mL Free T4 (0.78-2.19) ng/dL Total T3 (0.82-1.58) NG/ML Urine Color Yellow (Yellow) Urine Appearance Clear (Clear) Urine pH 6.0 (5.0-9.0) Ur Specific Ace 1.009 (1.001-1.035) Urine Protein Negative (Negative) mg/dL Urine Glucose (UA) Negative (Negative) mg/dL Urine Ketones Negative (Negative) mg/dL Ur Blood (Man) Negative (Negative) Urine Nitrate Negative (Negative) Urine Bilirubin Negative (Negative) Urine Urobilinogen 0.2 (<2.0) mg/dL Leukocyte Esterase Rfl Negative (Negative) ESTRELLA/UL Salicylates < 1.0 L (2-20) mg/dL Urine Opiates Screen Negative (Negative) Urine Methadone Screen Negative (Negative) Acetaminophen < 10 L (10-30) ug/mL Ur Barbiturates Screen Negative (Negative) Ur Phencyclidine Scrn Negative (Negative) Ur Amphetamine Screen Negative (Negative) U Benzodiazepines Scrn Negative (Negative) Urine Cocaine Screen Negative (Negative) U Cannabinoids Screen Negative (Negative) Ethyl Alcohol < 10 (<10) mg/dL Influenza A (RT-PCR) Negative (Negative) Influenza B (RT-PCR) Negative (Negative) RSV (RT-PCR) Negative (Negative) SARS-CoV-2 RNA (RT-PCR) Negative (Negative) Blood Type O Positive Antibody Screen Negative <Parvez Melo MD - Last Filed: 06/27/25 10:48> ABG Data ABG results: 06/27/25 04:53 VBG pH 7.352 VBG pCO2 43.3 VBG pO2 27.6 L VBG HCO3 23.5 L O2 Delivery Device Not Reportable O2 Liters/Min Not Reportable FiO2 21 <Jluis Rothman DO - Last Filed: 06/27/25 08:16> 06/27/25 04:53 VBG pH 7.352 VBG pCO2 43.3 VBG pO2 27.6 L VBG HCO3 23.5 L O2 Delivery Device Not Reportable O2 Liters/Min Not Reportable FiO2 21 <Parvez Melo MD - Last Filed: 06/27/25 10:48> Discharge Plan Discharge Clinical Impression: Altered mental status, Elevated troponin, Elevated brain natriuretic peptide (BNP) level, Episode of unresponsiveness <DO Leanne Cobos Last Filed: 06/27/25 08:16> Patient Disposition: Still a Patient <DO Leanne Cobos Last Filed: 06/27/25 08:16> Condition: Guarded Prognosis <DO Leanne Cobos Last Filed: 06/27/25 08:16> Patient Language: Upper Sorbian <Jluis Rothman DO - Last Filed: 06/27/25 08:16> Prescriptions: No Action methylprednisolone [Medrol (Justin)] 4 mg tablets,dose pack See Rx Instructions PO PER PKG DIR Qty: 21 0RF Rx Instructions: PO PER PKG DIR for 6 days triamcinolone acetonide 0.1 % cream 1 applic topical TID Qty: 80 0RF bupropion HCl 300 mg tablet extended release 24 hr 300 mg PO QAM Qty: 90 1RF trazodone 50 mg tablet 50 mg PO QHS PRN (Reason: sleep) Qty: 30 2RF gabapentin 300 mg capsule See Rx Instructions PO DAILY Qty: 120 3RF Rx Instructions: take one cap PO in the am, take 1 cap in afternoon, and take 2 in pm PO daily; <Jluis Rothman DO - Last Filed: 06/27/25 08:16> Follow-up/Referrals: Hermann Arrieta APRN [Primary Care Provider, Internal Medicine] <Jluis Rothman DO - Last Filed: 06/27/25 08:16>
--- NOTE | 2025-06-27 04:43 | ECG_ITS ---
Test Date: 2025-06-27 04:46:54 Measurements Intervals [place] Rate: 78 P: 87 DE: 165 QRS: -15 QRSD: 161 T: 106 QT: 455 QTc: 518 Interpretive Statements SINUS RHYTHM WITH OCCASIONAL SUPRAVENTRICULAR PREMATURE COMPLEXES IVCD, FEATURES OF BOTH LEFT BUNDLE BRANCH BLOCK RBBB LEFT BUNDLE BRANCH BLOCK BASELINE ARTIFACT- I, II, III, AVR, AVL, AVF, V1-V6 ABNORMAL ECG No previous ECG available for comparison Electronically Signed On 06-27-2025 08:56:03 CDT by Jim Christie D.O.
[2025-06-27] MEDS: SODIUM CHLORIDE 0.9% IV 1,000 ML 999 ML IV CONT (04:48)
[2025-06-27 04:56] LABS: Fractional Inspired Oxygen 21 %; HCO3 VBG 23.5 mEq/l (24.0-30.0); PCO2 VBG 43.3 mmHg (42.0-48.0); PO2 VBG 27.6 mmHg (35.0-45.0); pH VBG 7.352 (7.300-7.400)
--- OUTSIDE RECORDS SUMMARY | 2025-06-27 04:57 | XMS_ITS | Clinical Summary ---
Author Organization [facility] Address [address] [place] [address] Care Team Providers Care Benefit Director Name Role Phone Juan Izquierdo Primary Care Provider [phone] Source Comments [facility],non-owned Affiliates and Associated Physician Practices is amultiple site organization consisting of ambulatory clinics and hospital sitesin [place], [place], [place] and [place]. This disclosure is being madepursuant to the Care Everywhere program and may not contain all information available regarding this patient. Last updated 18.[facility] [employer] Allergies No known active allergies Medications * Be aware that medications may not be up to date on this document. Alwaysverify current medications with the patient. 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 Gender Identity Not on file Sexual Orientation Not on file Last Filed Vital Signs Vital Sign Reading Time Taken Comments Blood Pressure 137/72 09/28/2016 12:22 PM MOLDER BENCH Pulse 81 09/28/2016 12:22 PM MOLDER BENCH Temperature 36.8 C (98.3 F) 09/28/2016 12:22 PM MOLDER BENCH Respiratory Rate 16 09/28/2016 12:22 PM MOLDER BENCH Oxygen Saturation 94% 09/28/2016 12:22 PM MOLDER BENCH Inhaled Oxygen Concentration - - Weight 63.5 kg (140 lb) 09/28/2016 8:29 AM MOLDER BENCH Height 165.1 cm (5' 5) 09/28/2016 8:29 AM MOLDER BENCH Body Mass Index 23.3 09/28/2016 8:29 AM MOLDER BENCH Plan of Treatment Health Maintenance Due Date Last Done Comments BONE DENSITY TESTING 1940 DTAP/TDAP/TD VACCINES (1 - Tdap) 12/03/1959 PNEUMOCOCCAL VACCINE 50+ (1 of 1 - PCV) 1990 ZOSTER VACCINE (1 of 2) 1990 Respiratory Syncytial Virus (RSV) Vaccine Pt: or over 60 yrs (1 - 1-dose 75+ series) 12/03/2015 DEPRESSION SCREENING 09/17/2024 COVID-19 VACCINE ( - 2023-2 5 season) 2025 INFLUENZA VACCINE (#1) 2025 HEPATITIS B VACCINE Aged Out No longe r eligible based on patient's age to complete this topic HIB VACCINE Aged Out No longer eligi ble based on patient's age to complete this topic HPV VACCINE Aged Out No longer eligi ble based on patient's age to complete this topic MENINGOCOCCAL (Group B) VACC INE SHARED DECISION-MAKING Aged Out No longer eligibl e based on patient's age to complete this topic MENINGOCOCCAL GROUPS A/C/Y/W VACCINE Aged Out No longer eligible b ased on patient's age to complete this topic Insurance [employer] [place] [employer] Care Teams Benefit Director Relationship Specialty Start Date End Date Juan Izquierdo DO PCP - General Internal Medicine 09/28/16
--- OUTSIDE RECORDS SUMMARY | 2025-06-27 04:57 | XMS_ITS | Clinical Summary ---
Author Organization [facility] [address] [place] [id number] Care Team Providers Care Assistant Manager Trainee Name Role Phone Juan Izquierdo MD Primary Care Provider [phone] Beronica Rivers MD Unavailable [phone] Allergies No known active allergies Medications citalopram (CeleXA) 40 mg tablet Take 40 mg by mouth daily 01/31/2021 Active gabapentin (NEURONTIN) 300 mg capsule Take 300 mg by mouth 3 (three) times a day Active Active Problems No known active problems Surgical History Surgery Date Site/Laterality Comments MASTECTOMY 09/17/2004 - 09/16/2005 Left Medical History Medical History Date Comments Depression Breast cancer (HCC) 2004 left breat Family History Medical History Relation Name Comments Breast cancer Sister Liver cancer Sister Relation Name Status Comments Sister Social History Tobacco Use Types Packs/Day Years Used Date Smoking Tobacco: Former Personal Safety Answer Date Recorded Getting School Help Needed Not on file 11/11 Comments No Sex and Gender Information Value Date Recorded Sex Assigned at Not on file 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 Gender Identity Not on file Sexual Orientation Not on file Obstetrics History Para Term AB IAB SAB Ectopic Multiple Livin g Live Births 6 3 3 3 3 3 3 Date Outcome GA Total Labor Labor/2nd/3rd Weight Sex Type Anes PTL Shaunna A1 A5 Name Clin Term Vag-S pont Living Term Vag-S pont Living Term Vag-S pont Living SAB SAB SAB Last Filed Vital Signs Vital Sign Reading Time Taken Comments Blood Pressure 170/80 02/01/2021 3:53 PM CDT Pulse - - Temperature - - Respiratory Rate - - Oxygen Saturation - - Inhaled Oxygen Concentration - - Weight 64.9 kg (143 lb) 02/01/2021 3:53 PM CDT Height 165.1 cm (5' 5) 02/01/2021 3:53 PM CDT Body Mass Index 23.8 02/01/2021 3:53 PM CDT Plan of Treatment Not on file Insurance MEDICARE [facility] Address: [address] [address] [place] [address] AET SENIOR SUPPLEMENT Care Teams Assistant Manager Trainee Relationship Specialty Start Date End Date Juan Izquierdo MD [address] [facility] [address] [place], [place] [id number] PCP - General 09/12/12 Beronica Rivers MD [address] [place] [id number] Referring Physician Obstetrics and Gynecology 09/21/20
[2025-06-27 05:03] LABS: Hematocrit 40.9 % (37.0-47.0); Hemoglobin 13.2 g/dL (12.0-15.0); Immature Granulocyte Percent A 0.2 % (0-0.5); Lymphocytes Absolute Auto 2.92 K/mm3 (0.9-3.2); Mean Corpuscular HGB Conc 32.3 g/dl (32-36); Mean Corpuscular Hemoglobin 29.7 pg (26-34); Mean Corpuscular Volume 91.9 fl (80-100); Nucleated Red Blood Cells Absolute Auto 0.000 K/mm3 (0.0-0.012); Nucleated Red Blood Cells Perc 0.0 % (0.0-0.2); Platelet Count Result 184 k/mm3 (150-375); Red Blood Count 4.45 M/mm3 (4.2-5.4); White Blood Count 6.2 K/mm3 (4.5-10.0)
[2025-06-27 05:13] LABS: Acetaminophen < 10 ug/mL (10-30); Ammonia < 9 umol/L (9-30); Salicylate < 1.0 mg/dL (2-20)
[2025-06-27 05:22] LABS: INR 1.0; Partial Thromboplastin Time 22.4 Seconds (22.3-36.8); Prothrombin Time 13.4 Seconds (11.1-14.7)
[2025-06-27 05:23] LABS: Add Urine Microscopic? NO; Appearance Urine Clear (Clear); Glucose Urine UA Negative (Negative); Leukocyte Esterase Ur Negative LEU/UL (Negative); Nitrate Urine Negative (Negative); Specific Grav Ur 1.009 (1.001-1.035)
[2025-06-27 05:29] LABS: Alanine Aminotransferase 31 U/L (6-35); Albumin Level 4.1 g/dL (3.5-5.1); Alkaline Phosphatase 202 U/L (38-126); Anion Gap 8 mmol/L (4-12); Aspartate Amino Transferase 45 U/L (14-36); Bilirubin,Total 0.8 mg/dL (0.2-1.3); Blood Urea Nitrogen 16 mg/dL (7-17); CRP < 0.5 mg/dL (<1.0); Calcium 9.4 mg/dL (8.4-10.2); Carbon Dioxide 24 mmol/L (22-30); Chloride 104 mmol/L (98-107); Creatine Kinase 106 U/L (30-135); Estimated Glomerular Filt Rate > 60; Glucose 134 mg/dL (65-110); Lipase 52 U/L (23-300); Magnesium 2.0 mg/dL (1.6-2.3); Potassium 3.9 mmol/L (3.4-5.0); Sodium 136 mmol/L (137-145); Total Protein 7.9 g/dL (6.3-8.2)
[2025-06-27 05:35] LABS: Procalcitonin 0.1 ng/mL
[2025-06-27 05:38] LABS: NT Pro B Type Natriuretic Pept 3610 pg/mL (19.9-100); Troponin I 0.062 ng/mL (0.000-0.034)
[2025-06-27 05:40] LABS: Cannabinoid Screen Urine Negative (Negative)
[2025-06-27 05:49] LABS: Thyroid Stimulating Hormone Reflex 6.890 uIU/mL (0.465-4.68)
[2025-06-27 05:58] LABS: Influenza A QL RT-PCR Negative (Negative); Influenza B QL RT-PCR Negative (Negative); RSV RNA, RT-PCR Negative (Negative); SARS-CoV-2 RNA PCR Negative (Negative)
[2025-06-27 06:17] LABS: Free T4 Free Thyroxine Reflex 1.63 ng/dL (0.78-2.19)
--- NOTE | 2025-06-27 06:17 | ECG_ITS ---
Test Date: 2025-06-27 08:08:04 Measurements Intervals [place] Rate: 87 P: 0 TX: 0 QRS: -28 QRSD: 158 T: 139 QT: 427 QTc: 517 Interpretive Statements SINUS RHYTHM WITH ATRIAL PREMATURE COMPLEXES LEFT BUNDLE BRANCH BLOCK BASELINE ARTIFACT- I, II, III, AVR, V1 ABNORMAL ECG Compared to ECG 06/27/2025 04:46:54 NO SIGNIFICANT CHANGE Electronically Signed On 06-27-2025 08:35:53 CDT by Jim Christie D.O.
[2025-06-27 07:13] LABS: Total Triiodothyronine (T3) 0.92 NG/ML (0.82-1.58)
--- NOTE | 2025-06-27 07:59 | ECG_ITS ---
Test Date: 2025-06-27 06:29:01 Measurements Intervals [place] Rate: 95 P: 84 NC: 144 QRS: -14 QRSD: 154 T: 146 QT: 419 QTc: 527 Interpretive Statements SINUS RHYTHM LEFT BUNDLE BRANCH BLOCK BASELINE ARTIFACT- I, II, III, AVR, AVL, AVF, V1-V6 ABNORMAL ECG Compared to ECG 06/27/2025 04:46:54 NO SIGNIFICANT CHANGE Electronically Signed On 06-29-2025 09:40:57 CDT by Jim Christie D.O.
[2025-06-27 08:42] LABS: Troponin I 3.780 ng/mL (0.000-0.034)
[2025-06-27] MEDS: HEPARIN SOD/D5W 100 UNITS/ML 25,000 UNITS/250 ML BAG 6 UNITS IV CONT (10:48)
[2025-06-27 11:37] LABS: Troponin I 15.900 ng/mL (0.000-0.034)
--- NOTE | 2025-06-27 11:38 | ECG_ITS ---
Test Date: 2025-06-27 11:44:56 Measurements Intervals [place] Rate: 83 P: 79 TX: 176 QRS: -38 QRSD: 152 T: 148 QT: 430 QTc: 508 Interpretive Statements SINUS RHYTHM LEFT AXIS DEVIATION LEFT BUNDLE BRANCH BLOCK BASELINE ARTIFACT- I, II, AVR, V1 ABNORMAL ECG Compared to ECG 06/27/2025 08:08:04 NO SIGNIFICANT CHANGE Electronically Signed On 06-27-2025 15:46:01 CDT by Jim Christie D.O.
--- NOTE | 2025-06-27 12:05 | PC.NURSE ---
Dr Gallagher made aware of 6hour Trop elevation of 15.9. Per dr Gallagher no new orders, continue same care.
[2025-06-27] MEDS: PERFLUTREN LIPID MICROSPHERES 1.5 ML VIAL DILUTED TO 10 ML TOTAL VOLUME IV PUSH (14:08)
--- NOTE | 2025-06-27 14:09 | IVDEFINITY ---
Prior to administration of IV Definity the patient was educated on the risks and benefits of the imaging enhancing agent including potential adverse side effects. The patient verbalized understanding. Allergies were verified. No exclusion criteria were identified and at least one of the following inclusion criteria were met: 1) physician request, 2) patient technically difficult to image (per the [place] [employer] Echocardi[employer] guidelines of two or more segments not discernable within the apical view), or 3) questionable left ventricular function. ?
--- NOTE | 2025-06-27 14:29 | P.HP_ITS ---
H&P: HPI History of Present Illness Date/Time: 06/27/25 14:29 Chief Complaint: NSTEMI Narrative: Patient is an 84 year old female PMH of depression, insomnia, dry eyes, chronic constipation presenting after she woke up her in bed and said she does not feel right. When EMs arrived, she was sitting on the floor, with only complaint of weakness. CT Head/Chest/Abdomen/Pelvis negative for acute pathology, labs within normal limits aside from troponin which was 0.06 > 3.57 > 15.9. EKG shows LBBB, unclear if new or not. Cardiology was consulted with diagnosis of NSTEMI made. Heparin drip was started in the ED, and patient is for transfer to IMU for presumed cardiac cath. Patient denies chest pain actively, however mentions breast pain on the right side. Her sister notes she may have been having chest pain, but has been developing dementia-like symptoms over the past few months, characterized by increased agitation. Currently, per family she is at baseline mental status. Patient denies history of HTN, HLD or signficant cardiac history. Review of Systems Review of Systems: AAOx2 - baseline per family Constitutional: Constitutional: Reports as per HPI Eyes: Eyes: Reports as per HPI Cardiovascular: Cardiovascular: Reports as per HPI Respiratory: Respiratory: Reports as per HPI Gastrointestinal: Gastrointestinal: Reports as per HPI Musculoskeletal: Musculoskeletal: Reports as per HPI Integumentary/Breasts: Skin/Breast: Reports as per HPI Neurologic: Reports system reviewed and no additional complaints, except as documented and Reports as per HPI Psychiatric: Psychiatric: Reports as per HPI Comments: wants to go home [facility] Past Medical History Medical History Constipation Abdominal pain History of vaginal delivery x 3 Hx of breast cancer Depression Ankle fracture Rt x2. Arthritis History of melena GERD (gastroesophageal reflux disease) IBS (irritable bowel syndrome) Ulcer Hx of hemorrhoids COPD (chronic obstructive pulmonary disease) LBBB (left bundle branch block) Peripheral neuropathy Cataracts, bilateral History of COPD History of peripheral neuropathy History of gastroesophageal reflux (GERD) History of depression Surgical History Surgical History History of bilateral knee arthroplasty History of hemorrhoidectomy H/O cataract removal with insertion of prosthetic lens History of mastectomy Family History Family History Sibling Family history of diabetes mellitus in first degree relative Family history of malignant neoplasm of breast in first degree relative Patient's sister is in good health Father No family history of malignant neoplasm Family history of lung cancer Mother Patient's mother is Family history of Alzheimer's disease Family history of malignant melanoma Social History Social History Social History: Caffeine-coffee Smoking status: Former smoker Tobacco type: cigarettes Second hand tobacco smoke exposure: No Smoking end date: 09/17/98 Alcohol intake: never Substance use: never Substance use type: does not use Do You Feel Safe in your Home?: Yes Lack of Transportation: No Lack of Food: Never True Current Housing: I Have Housing Concerned About Future Housing: No Difficulty Paying Gas/Electric Bills: No Difficulty Paying for Meds: No Currently Unemployed: No Education: High School Diploma/GED Difficulty w/ Childcare or Family Care: No Living arrangements: with family Spiritual care concerns: No Meds Home Medications and Allergies Home Medications ?Medication ?Instructions ?Recorded ?Confirmed ?Type bupropion HCl 300 mg 24 hr tablet, 300 mg PO QAM #90 t abs 07/18/24 03/10/25 Rx extended release trazodone 50 mg tablet 50 mg PO QHS PRN sleep #30 t abs 07/18/24 03/10/25 Rx gabapentin 300 mg capsule See Rx Instructions PO DAILY #120 01/15/25 03/10/25 Rx caps methylprednisolone 4 mg tablets in See Rx Instructions PO PER PKG DIR 03/06/25 03/06/25 Rx a dose pack (Medrol (Justin)) #21 ea triamcinolone acetonide 0.1 % 1 applic topical TID #80 grams 03/06/25 03/06/25 Rx topical cream Allergies Allergy/AdvReac Type Severity Reaction Status Date / Time No Known Allergies Allergy Verified 03/06/25 15:12 Vital Signs Vital Signs - 24 hr 06/27/25 04:32 06/27/25 08:03 06/27/25 10:48 Temperature 98.1 F Pulse Rate 70 86 85 Respiratory Rate 15 20 20 Blood Pressure 156/87 H 147/90 H 140/81 Pulse Oximetry 97 96 98 Oxygen Delivery Room Air Exam Const: General: no acute distress HENMT: Face/Nose/Sinus: Normal nares present Mouth: Yes moist mucous membranes Eyes: General: appearance normal, both eyes and all related structures Sclera: sclerae normal Pupils: Equal, round and reactive pupils present EOM: EOMs intact bilaterally Neck: Neck: supple and no JVD Resp: Effort & Inspection: normal respiratory effort Auscultation: clear to auscultation bilaterally Cardio: Rate: regular rate Rhythm: regular rhythm GI: GI Palp: Yes Soft to palpation Auscultation: normal bowel sounds Neuro: Speech: normal speech Psych: Affect: Anxious affect present H&P: Results Labs Labs: Short CBC 06/27/25 Range/Units 04:55 WBC 6.2 (4.5-10.0) K/mm3 Hgb 13.2 (12.0-15.0) g/dL Hct 40.9 (37.0-47.0) % Plt Count 184 (150-375) k/mm3 BMP 06/27/25 04:54 Sodium 136 L Potassium 3.9 Chloride 104 Carbon Dioxide 24 BUN 16 Creatinine 0.82 Glucose 134 H Calcium 9.4 Cardiac Enzymes 06/27/25 06/27/25 06/27/25 Range/Units 04:54 04:55 07:59 Total Creatine Kinase 106 (30-135) U/L Troponin I 0.062 H* Cancelled 3.780 H* D (0.000-0.034) ng/mL 06/27/25 Range/Units 10:56 Total Creatine Kinase (30-135) U/L Troponin I 15.900 H* D (0.000-0.034) ng/mL Liver Function 06/27/25 Range/Units 04:54 Total Bilirubin 0.8 (0.2-1.3) mg/dL AST 45 H (14-36) U/L ALT 31 (6-35) U/L Alkaline Phosphatase 202 H (38-126) U/L Albumin 4.1 (3.5-5.1) g/dL Urine 06/27/25 Range/Units 05:15 Urine Color Yellow (Yellow) Urine Appearance Clear (Clear) Urine pH 6.0 (5.0-9.0) Ur Specific [place] 1.009 (1.001-1.035) Urine Protein Negative (Negative) mg/dL Urine Glucose (UA) Negative (Negative) mg/dL Assessment and Plan Assessment and plan (1) NSTEMI (non-ST elevated myocardial infarction): Code(s): I21.4 - Non-ST elevation (NSTEMI) myocardial infarction Status: Acute Assessment and Plan: EKG: LBBB, unclear if new or not Troponins highly uptrending x3 0.06 > 3.57 > 15.9 Plan: To be seen by cardiology, heparin drip active Anticipate cardiac cath today or tomorrow Echo ordered (2) History of gastroesophageal reflux (GERD): Code(s): Z87.19 - Personal history of other diseases of the digestive system Status: Acute Assessment and Plan: GI prophylaxis (3) Depression: Qualifiers: Depression Type: unspecified Qualified Code(s): F32.A - Depression, unspecified Code(s): F32.9 - Major depressive disorder, single episode, unspecified Status: Acute Assessment and Plan: On antidepressant that starts with Bu per patient- likely bupropion, will need confirmation (4) Dementia: Code(s): F03.90 - Unspecified dementia, unspecified severity, without behavioral disturbance, psychotic disturbance, mood disturbance, and anxiety Status: Acute Assessment and Plan: At baseline per sister, this has been progressing for several months Plan: Reorientation when needed Plan DVT prophylaxis: currently on heparin drip, transition to subq heparin when off drip Quality VTE Prophylaxis VTE prophylaxis: mechanical ordered If No VTE Prophylaxis Answer both mechanical and pharmacologic: Reason no pharmacologic proph: medical contraindication (heparin drip active) Hospitalist MIPS Advance Care Plan I have confirmed that the patient's Advanced Care Plan is present, code status is documented, or surrogate decision maker is listed in patient medical record.: Yes Medication Reconciliation I have utilized all available resources to obtain, update and review the patients current medications (includes all prescriptions, OTC, herbals, cannabis, and nutritional supplements).: Yes
--- NOTE | 2025-06-27 15:27 | PM.CNCAR ---
Assessment and Plan Assessment and plan (1) NSTEMI (non-ST elevated myocardial infarction): Code(s): I21.4 - Non-ST elevation (NSTEMI) myocardial infarction Status: Acute Assessment and Plan: Start aspirin daily, on heparin drip. Start Atorvastatin 80 mg daily and Metoprolol Tartate 12.5 mg BID. Check echo. Check lipid panel. Trend troponin to peak. Anticipate C on Sunday unless need to go sooner urgently due to hemodynamic instability with ventricular arrhythmias or uncontrolled chest pains. (2) LBBB (left bundle branch block): Code(s): I44.7 - Left bundle-branch block, unspecified Status: Acute History of Present Illness History of Present Illness Consult date/time: 06/27/25 15:27 Reason For Visit: NSTEMI Narrative: 84 yr old woman presents to ER with vague not feeling right. She has a history of LBBB, COPD, mild dementia. Daughter is at bedside. She lives in house with and function, normally gets around the house and does activity just fine. This morning at 4 am she felt something was not right, with some weakness in both arms. Denies chest pain, sob, orthopnea, PND, edema, dizziness, palpitations. Review of Systems Review of Systems: All systems reviewed & are unremarkable except as noted in HPI and below Constitutional: Constitutional: Reports as per HPI, Denies chills, Reports fatigue and Denies fever(s) Cardiovascular: Cardiovascular: Reports as per HPI, Denies chest pain and Denies irregular heart rhythm Respiratory: Respiratory: Reports as per HPI and Denies dyspnea Gastrointestinal: Gastrointestinal: Reports as per HPI and Denies abdominal pain Genitourinary: Genitourinary: Reports as per HPI and Denies dysuria Musculoskeletal: Musculoskeletal: Reports as per HPI Neurologic: Reports as per HPI, Denies dizziness and Denies syncope [facility], [facility] Past Medical History Medical History (Updated 06/27/25 @ 15:30 by Jim Christie DO) Constipation Abdominal pain History of vaginal delivery x 3 Hx of breast cancer Depression Ankle fracture Rt x2. Arthritis History of melena GERD (gastroesophageal reflux disease) IBS (irritable bowel syndrome) Ulcer Hx of hemorrhoids COPD (chronic obstructive pulmonary disease) LBBB (left bundle branch block) Peripheral neuropathy Cataracts, bilateral History of COPD History of peripheral neuropathy History of gastroesophageal reflux (GERD) History of depression Surgical History Surgical History History of bilateral knee arthroplasty History of hemorrhoidectomy H/O cataract removal with insertion of prosthetic lens History of mastectomy Family History Family History Sibling Family history of diabetes mellitus in first degree relative Family history of malignant neoplasm of breast in first degree relative Patient's sister is in good health Father No family history of malignant neoplasm Family history of lung cancer Mother Patient's mother is Family history of Alzheimer's disease Family history of malignant melanoma Social History Social History Social History: Caffeine-coffee Smoking status: Former smoker Tobacco type: cigarettes Second hand tobacco smoke exposure: No Smoking end date: 09/17/98 Alcohol intake: never Substance use: never Substance use type: does not use Do You Feel Safe in your Home?: Yes Lack of Transportation: No Lack of Food: Never True Current Housing: I Have Housing Concerned About Future Housing: No Difficulty Paying Gas/Electric Bills: No Difficulty Paying for Meds: No Currently Unemployed: No Education: High School Diploma/GED Difficulty w/ Childcare or Family Care: No Living arrangements: with family Spiritual care concerns: No Meds Home Medications and Allergies Home Medications ?Medication ?Instructions ?Recorded ?Confirmed ?Type bupropion HCl 300 mg 24 hr tablet, 300 mg PO QAM #90 tabs 07/18/24 03/10/25 Rx extended release trazodone 50 mg tablet 50 mg PO QHS PRN sleep #30 tabs 07/18/24 03/10/25 Rx gabapentin 300 mg capsule See Rx Instructions PO DAILY #120 01/15/25 03/10/25 Rx caps methylprednisolone 4 mg tablets in See Rx Instructions PO PER PKG DIR 03/06/25 03/06/25 Rx a dose pack (Medrol (Justin)) #21 ea triamcinolone acetonide 0.1 % 1 applic topical TID #80 grams 03/06/25 03/06/25 Rx topical cream Allergies Allergy/AdvReac Type Severity Reaction Status Date / Time No Known Allergies Allergy Verified 03/06/25 15:12 Vital Signs Vital Signs - 24 hr 06/27/25 04:32 06/27/25 08:03 06/27/25 09:00 Temperature 98.1 F Pulse Rate 70 86 89 Respiratory Rate 15 20 19 Blood Pressure 156/87 H 147/90 H 148/88 H Pulse Oximetry 97 96 97 Oxygen Delivery Room Air 06/27/25 09:01 06/27/25 09:15 06/27/25 09:16 Temperature Pulse Rate 94 85 87 Respiratory Rate 22 H 19 19 Blood Pressure 151/83 H Pulse Oximetry 97 96 97 Oxygen Delivery 06/27/25 09:30 06/27/25 09:31 06/27/25 09:45 Temperature Pulse Rate 89 84 86 Respiratory Rate 18 20 26 H Blood Pressure 139/98 H Pulse Oximetry 95 96 97 Oxygen Delivery 06/27/25 09:46 06/27/25 10:00 06/27/25 10:01 Temperature Pulse Rate 89 87 87 Respiratory Rate 17 17 17 Blood Pressure 144/82 H 143/82 H Pulse Oximetry 99 97 97 Oxygen Delivery 06/27/25 10:15 06/27/25 10:16 06/27/25 10:30 Temperature Pulse Rate 86 83 81 Respiratory Rate 15 17 18 Blood Pressure 138/91 H 141/78 H Pulse Oximetry 96 96 96 Oxygen Delivery 06/27/25 10:31 06/27/25 10:45 06/27/25 10:46 Temperature Pulse Rate 82 83 84 Respiratory Rate 17 19 17 Blood Pressure 140/81 Pulse Oximetry Oxygen Delivery 06/27/25 10:48 06/27/25 11:00 06/27/25 11:01 Temperature Pulse Rate 85 85 91 Respiratory Rate 20 18 15 Blood Pressure 140/81 133/78 Pulse Oximetry 98 Oxygen Delivery 06/27/25 11:15 06/27/25 11:16 06/27/25 11:30 Temperature Pulse Rate 84 82 85 Respiratory Rate 17 18 20 Blood Pressure 136/80 138/79 Pulse Oximetry Oxygen Delivery 06/27/25 11:31 06/27/25 11:45 06/27/25 11:46 Temperature Pulse Rate 84 86 88 Respiratory Rate 18 22 H 18 Blood Pressure 140/87 Pulse Oximetry 97 Oxygen Delivery 06/27/25 12:00 06/27/25 12:01 06/27/25 12:15 Temperature Pulse Rate 85 85 82 Respiratory Rate 18 18 19 Blood Pressure 134/84 Pulse Oximetry 99 95 Oxygen Delivery 06/27/25 12:16 10/11/25 12:30 06/27/25 12:31 Temperature Pulse Rate 77 72 78 Respiratory Rate 19 17 17 Blood Pressure 135/87 136/79 Pulse Oximetry 95 96 96 Oxygen Delivery 06/27/25 12:45 06/27/25 12:46 06/27/25 13:00 Temperature Pulse Rate 78 78 80 Respiratory Rate 20 17 19 Blood Pressure 158/77 H 146/85 H Pulse Oximetry 96 97 97 Oxygen Delivery 06/27/25 13:01 06/27/25 13:15 06/27/25 13:16 Temperature Pulse Rate 79 77 86 Respiratory Rate 19 19 19 Blood Pressure 123/86 Pulse Oximetry 97 97 97 Oxygen Delivery 06/27/25 13:30 06/27/25 13:31 06/27/25 13:45 Temperature Pulse Rate 76 79 76 Respiratory Rate 18 17 20 Blood Pressure 143/76 H 150/79 H Pulse Oximetry 98 98 98 Oxygen Delivery 06/27/25 13:46 06/27/25 14:00 06/27/25 14:01 Temperature Pulse Rate 80 85 80 Respiratory Rate 20 17 18 Blood Pressure 138/81 Pulse Oximetry 97 97 98 Oxygen Delivery 06/27/25 14:15 06/27/25 14:16 06/27/25 14:30 Temperature Pulse Rate 81 83 82 Respiratory Rate 18 18 18 Blood Pressure 143/78 H Pulse Oximetry 97 97 97 Oxygen Delivery 06/27/25 14:31 06/27/25 14:45 06/27/25 14:46 Temperature Pulse Rate 80 82 88 Respiratory Rate 20 19 17 Blood Pressure 163/75 H 145/80 H Pulse Oximetry 97 99 97 Oxygen Delivery 06/27/25 15:00 06/27/25 15:01 Temperature Pulse Rate 83 81 Respiratory Rate 21 H 19 Blood Pressure 150/73 H Pulse Oximetry 97 97 Oxygen Delivery Exam Const: General: cooperative, healthy appearing and comfortable Resp: Auscultation: clear to auscultation bilaterally, no crackles, no rales, no rhonchi and no wheezes Cardio: Rate: regular rate Rhythm: regular rhythm Heart sounds: no murmurs Peripheral pulses: dorsalis pedis present GI: GI Palp: No abdominal tenderness and Yes Soft to palpation Neuro: General: oriented to person, oriented to place and oriented to time Extrem: Right lower extremity: no edema Left lower extremity: no edema Results Labs and Meds 10/11/25 04:55 06/27/25 04:54 Lab results: Cardiac Enzymes 06/27/25 06/27/25 06/27/25 Range/Units 04:54 04:55 07:59 AST 45 H (14-36) U/L Troponin I 0.062 H* Cancelled 3.780 H* D (0.000-0.034) ng/mL 06/27/25 Range/Units 10:56 AST (14-36) U/L Troponin I 15.900 H* D (0.000-0.034) ng/mL Coagulation 06/27/25 Range/Units 04:55 PT 13.4 (11.1-14.7) Seconds APTT 22.4 (22.3-36.8) Seconds CBC 06/27/25 Range/Units 04:55 WBC 6.2 (4.5-10.0) K/mm3 RBC 4.45 (4.2-5.4) M/mm3 Hgb 13.2 (12.0-15.0) g/dL Hct 40.9 (37.0-47.0) % Plt Count 184 (150-375) k/mm3 Lymph # (Auto) 2.92 (0.9-3.2) K/mm3 [place] # (Auto) 0.5 (0.1-0.6) K/mm3 Eos # (Auto) 0.5 H (0-0.3) K/mm3 Baso # (Auto) 0.1 (0.0-0.1) K/mm3 Comprehensive Metabolic Panel 06/27/25 Range/Units 04:54 Sodium 136 L (137-145) mmol/L Potassium 3.9 (3.4-5.0) mmol/L Chloride 104 (98-107) mmol/L Carbon Dioxide 24 (22-30) mmol/L BUN 16 (7-17) mg/dL Creatinine 0.82 (0.7-1.0) mg/dL Glucose 134 H (65-110) mg/dL Calcium 9.4 (8.4-10.2) mg/dL AST 45 H (14-36) U/L ALT 31 (6-35) U/L Alkaline Phosphatase 202 H (38-126) U/L Total Protein 7.9 (6.3-8.2) g/dL Albumin 4.1 (3.5-5.1) g/dL Intake and Output 06/26/25 06/27/25 06/27/25 23:59 07:59 15:59 Intake Total 1000 Balance 1000 Intake: IV 1000 Sodium Chloride 0.9% IV 1,000 1000 ml @ 999 mls/hr IV CONT .Q1H1M STA Rx#:[id number] Patient Weight 06/27/25 23:59 Weight 52 kg
[2025-06-27 17:01] LABS: Hematocrit 39.3 % (37.0-47.0); Hemoglobin 12.9 g/dL (12.0-15.0); Immature Granulocyte Percent A 0.4 % (0-0.5); Lymphocytes Absolute Auto 1.49 K/mm3 (0.9-3.2); Mean Corpuscular HGB Conc 32.8 g/dl (32-36); Mean Corpuscular Hemoglobin 29.7 pg (26-34); Mean Corpuscular Volume 90.6 fl (80-100); Nucleated Red Blood Cells Absolute Auto 0.000 K/mm3 (0.0-0.012); Nucleated Red Blood Cells Perc 0.0 % (0.0-0.2); Platelet Count Result 169 k/mm3 (150-375); Red Blood Count 4.34 M/mm3 (4.2-5.4); White Blood Count 6.9 K/mm3 (4.5-10.0)
[2025-06-27 17:14] LABS: Cholesterol 177 mg/dL (0-200); HDL Direct 61 mg/dL; Triglycerides 58 mg/dL (<150)
[2025-06-27 17:20] LABS: INR 1.1; Prothrombin Time 14.4 Seconds (11.1-14.7)
[2025-06-27 17:22] LABS: Partial Thromboplastin Time 69.1 Seconds (22.3-36.8)
--- NOTE | 2025-06-27 18:51 | ADMGEN ---
This patient, Hannah Acosta, was admitted to IMU Room 205-02 @ 1525. Patient/family oriented to hospital policies and general routines including ID bracelet, bed and alarms, visiting hours, pain management, procedures, bathroom and other care routines, personal items, smoking policy, room service/diet, and visiting hours. Information on how to activate the Rapid Response Team has been discussed. Patient/Family are encouraged to report perceived risks to care and to ask questions if they do not understand what they are told or what they should do.
[2025-06-27] MEDS: METOPROLOL TARTRATE 12.5 MG TABLET PO (20:38)
[2025-06-28] VITALS (16 sets, daily range): BP systolic 113–138; BP diastolic 54–64; PULSE 68–83; RESP 12–20; TEMP 35.8–36.8; O2SAT 95–97
[2025-06-28 00:26] LABS: Hematocrit 39.5 % (37.0-47.0); Hemoglobin 13.1 g/dL (12.0-15.0); Immature Granulocyte Percent A 0.4 % (0-0.5); Lymphocytes Absolute Auto 2.42 K/mm3 (0.9-3.2); Mean Corpuscular HGB Conc 33.2 g/dl (32-36); Mean Corpuscular Hemoglobin 29.7 pg (26-34); Mean Corpuscular Volume 89.6 fl (80-100); Nucleated Red Blood Cells Absolute Auto 0.000 K/mm3 (0.0-0.012); Nucleated Red Blood Cells Perc 0.0 % (0.0-0.2); Platelet Count Result 183 k/mm3 (150-375); Red Blood Count 4.41 M/mm3 (4.2-5.4); White Blood Count 8.1 K/mm3 (4.5-10.0)
[2025-06-28 00:41] LABS: Partial Thromboplastin Time 89.6 Seconds (22.3-36.8)
[2025-06-28 06:35] LABS: Partial Thromboplastin Time 69.6 Seconds (22.3-36.8)
--- NOTE | 2025-06-28 06:49 | ECG_ITS ---
Test Date: 2025-06-28 09:39:01 Measurements Intervals [place] Rate: 69 P: -58 NH: 153 QRS: -33 QRSD: 152 T: 218 QT: 473 QTc: 507 Interpretive Statements ECTOPIC ATRIAL RHYTHM LEFT AXIS DEVIATION LEFT BUNDLE BRANCH BLOCK ABNORMAL ECG Compared to ECG 06/27/2025 11:44:56 Sinus rhythm no longer present Electronically Signed On 06-28-2025 09:43:20 CDT by Jim Christie D.O.
--- NOTE | 2025-06-28 08:20 | PM.PNCARD ---
Progress Note: A&P Assessment and Plan (1) NSTEMI (non-ST elevated myocardial infarction): Code(s): I21.4 - Non-ST elevation (NSTEMI) myocardial infarction Status: Acute Assessment and Plan: On aspirin daily, on heparin drip, on Atorvastatin 80 mg daily and on Metoprolol Tartate 12.5 mg BID. Troponin up to 15.9. Trend troponin to peak. Anticipate LHC on Sunday unless need to go sooner urgently due to hemodynamic instability with ventricular arrhythmias or uncontrolled chest pains. Risks/benefits/alternative to LHC discuss with patient and she is agreeable. Keep NPO after midnight. Will consult [facility] for it. (2) LBBB (left bundle branch block): Code(s): I44.7 - Left bundle-branch block, unspecified Status: Acute (3) Systolic dysfunction: Code(s): I51.9 - Heart disease, unspecified Status: Acute Assessment and Plan: Severe. Appears euvolemic. 06/27/25 Echo: EF 15-20%, severe LVE, mild LVH, grade I diastolic dysfunction (E/e' 9), mild ([place] 1.6 cm2 with DI 0.49), severe MAC, mod MV calcifications, trace TR. On Metoprolol. Start Entresto 24-26 mg BID. Will monitor hemodynamics and if OK then start Jardiance. Needs LHC as above. Will discuss Life vest to prevent sudden cardiac arrest with patient's daughter also and see if she is willing to wear it. Subjective Date/time seen: 06/28/25 08:20 Interval history: Reports mild chest pain now. Denies sob. She wants to go home and thought she was going home today. Exam Const: General: cooperative, healthy appearing and comfortable Orientation/consciousness: oriented to person, oriented to place and oriented to time Resp: Auscultation: clear to auscultation bilaterally, no crackles, no rales, no rhonchi and no wheezes Cardio: Rate: regular rate Rhythm: regular rhythm Heart sounds: no murmurs Peripheral pulses: dorsalis pedis present Neuro: General: oriented to person, oriented to place and oriented to time Extrem: Right lower extremity: no edema Left lower extremity: no edema Objective Data Vital Signs Vital Signs: Vital Signs - 24 hr 06/27/25 09:00 06/27/25 09:01 06/27/25 09:15 Temperature Pulse Rate 89 94 85 Respiratory Rate 19 22 H 19 Blood Pressure 148/88 H 151/83 H Pulse Oximetry 97 97 96 Oxygen Delivery 06/27/25 09:16 06/27/25 09:30 06/27/25 09:31 Temperature Pulse Rate 87 89 84 Respiratory Rate 19 18 20 Blood Pressure 139/98 H Pulse Oximetry 97 95 96 Oxygen Delivery 06/27/25 09:45 06/27/25 09:46 06/27/25 10:00 Temperature Pulse Rate 86 89 87 Respiratory Rate 26 H 17 17 Blood Pressure 144/82 H 143/82 H Pulse Oximetry 97 99 97 Oxygen Delivery 06/27/25 10:01 06/27/25 10:15 06/27/25 10:16 Temperature Pulse Rate 87 86 83 Respiratory Rate 17 15 17 Blood Pressure 138/91 H Pulse Oximetry 97 96 96 Oxygen Delivery 06/27/25 10:30 06/27/25 10:31 06/27/25 10:45 Temperature Pulse Rate 81 82 83 Respiratory Rate 18 17 19 Blood Pressure 141/78 H 140/81 Pulse Oximetry 96 Oxygen Delivery 06/27/25 10:46 06/27/25 10:48 06/27/25 11:00 Temperature Pulse Rate 84 85 85 Respiratory Rate 17 20 18 Blood Pressure 140/81 133/78 Pulse Oximetry 98 Oxygen Delivery 06/27/25 11:01 06/27/25 11:15 06/27/25 11:16 Temperature Pulse Rate 91 84 82 Respiratory Rate 15 17 18 Blood Pressure 136/80 Pulse Oximetry Oxygen Delivery 06/27/25 11:30 06/27/25 11:31 06/27/25 11:45 Temperature Pulse Rate 85 84 86 Respiratory Rate 20 18 22 H Blood Pressure 138/79 140/87 Pulse Oximetry 97 Oxygen Delivery 06/27/25 11:46 06/27/25 12:00 06/27/25 12:01 Temperature Pulse Rate 88 85 85 Respiratory Rate 18 18 18 Blood Pressure 134/84 Pulse Oximetry 99 Oxygen Delivery 06/27/25 12:15 06/27/25 12:16 06/27/25 12:30 Temperature Pulse Rate 82 77 72 Respiratory Rate 19 19 17 Blood Pressure 135/87 136/79 Pulse Oximetry 95 95 96 Oxygen Delivery 06/27/25 12:31 06/27/25 12:45 06/27/25 12:46 Temperature Pulse Rate 78 78 78 Respiratory Rate 17 20 17 Blood Pressure 158/77 H Pulse Oximetry 96 96 97 Oxygen Delivery 06/27/25 13:00 06/27/25 13:01 06/27/25 13:15 Temperature Pulse Rate 80 79 77 Respiratory Rate 19 19 19 Blood Pressure 146/85 H Pulse Oximetry 97 97 97 Oxygen Delivery 06/27/25 13:16 06/27/25 13:30 06/27/25 13:31 Temperature Pulse Rate 86 76 79 Respiratory Rate 19 18 17 Blood Pressure 123/86 143/76 H Pulse Oximetry 97 98 98 Oxygen Delivery 06/27/25 13:45 06/27/25 13:46 06/27/25 14:00 Temperature Pulse Rate 76 80 85 Respiratory Rate 20 20 17 Blood Pressure 150/79 H 138/81 Pulse Oximetry 98 97 97 Oxygen Delivery 06/27/25 14:01 06/27/25 14:15 06/27/25 14:16 Temperature Pulse Rate 80 81 83 Respiratory Rate 18 18 18 Blood Pressure 143/78 H Pulse Oximetry 98 97 97 Oxygen Delivery 06/27/25 14:30 06/27/25 14:31 06/27/25 14:45 Temperature Pulse Rate 82 80 82 Respiratory Rate 18 20 19 Blood Pressure 163/75 H Pulse Oximetry 97 97 99 Oxygen Delivery 06/27/25 14:46 06/27/25 15:00 06/27/25 15:01 Temperature Pulse Rate 88 83 81 Respiratory Rate 17 21 H 19 Blood Pressure 145/80 H 150/73 H Pulse Oximetry 97 97 97 Oxygen Delivery 06/27/25 19:50 06/27/25 20:00 06/27/25 20:00 Temperature 97.8 F Pulse Rate 82 77 Respiratory Rate 17 Blood Pressure 132/77 Pulse Oximetry 96 Oxygen Delivery Room Air 06/27/25 20:38 06/27/25 22:00 06/27/25 23:56 Temperature 98.2 F Pulse Rate 88 76 77 Respiratory Rate 15 Blood Pressure 130/64 Pulse Oximetry 95 Oxygen Delivery 06/28/25 00:00 06/28/25 00:00 06/28/25 02:00 Temperature Pulse Rate 68 72 Respiratory Rate Blood Pressure Pulse Oximetry Oxygen Delivery Room Air 06/28/25 04:00 06/28/25 04:00 06/28/25 04:00 Temperature 97.6 F Pulse Rate 71 70 Respiratory Rate 18 Blood Pressure 138/63 Pulse Oximetry 96 Oxygen Delivery Room Air 06/28/25 06:00 Temperature Pulse Rate 73 Respiratory Rate Blood Pressure Pulse Oximetry Oxygen Delivery Intake/Output Intake/Output: Intake & Output 06/25/25 06/26/25 06/27/25 06/28/25 23:59 23:59 23:59 23:59 Intake Total 1765.4 188 Output Total 200 400 Balance 1565.4 -212 Meds/Results Medications: Active Medications Generic Name Dose Route Start Last Admin Trade Name Freq PRN Reason Stop Dose Admin Al Hydrox/Mg Hydrox/Simethicone 30 ml 06/27/25 14:25 Mag Hydrox/Al Hydrox/Simeth 30 Ml Udc PO QID PRN Dyspepsia Artificial Tears 1 drop 06/27/25 14:49 Artificial Tears Ophth Soln 15 Ml Bottle EACH EYE QID PRN Dry Eye(s) Aspirin 81 mg 06/28/25 09:00 Aspirin 81 Mg Enteric Tablet PO QAM [facility] Atorvastatin Calcium 80 mg 06/28/25 09:00 Atorvastatin 40 Mg Tablet PO DAILY MAIRA Bisacodyl 5 mg 06/27/25 14:25 Bisacodyl 5 Mg Tablet Ec PO DAILY PRN Constipation Docusate Sodium 100 mg 06/27/25 17:00 06/27/25 19:38 Docusate Sodium 100 Mg Capsule PO Not Given BID [facility] Heparin Sodium (Porcine) 4,000 units 06/27/25 10:52 Heparin Sodium 5,000 Units/Ml Vial IV PUSH PRN PRN aPTT less than 55 seconds Heparin Sodium (Porcine) 2,000 units 06/27/25 10:52 06/28/25 07:00 Heparin Sodium 5,000 Units/Ml Vial IV PUSH 2,000 units PRN PRN Administration aPTT 55 - 70 seconds Heparin Sodium/Dextrose 25,000 units in 250 mls @ 8 mls/hr 06/27/25 10:39 06/28/25 06:56 Heparin Sodium/D5w 100 Units/Ml IV CONT 06/28/25 10:38 800 units/hr .Q24H STA 8 mls/hr Protocol Titration 800 UNITS/HR Metoprolol Tartrate 12.5 mg 06/27/25 21:00 06/27/25 20:38 Metoprolol Tartrate 12.5 Mg Tablet PO 12.5 mg Q12HR [facility] Administration Morphine Sulfate 2 mg 06/27/25 14:37 Morphine Sulfate (*Crx) 4 Mg/Ml Inj IV PUSH Q4H PRN Pain Rated 7-10 Naloxone HCl 0.1 mg 06/27/25 14:25 Naloxone Hcl 0.4 Mg/Ml Vial IV PUSH Q2M PRN Opiate Reversal Ondansetron HCl 4 mg 06/27/25 14:25 Ondansetron Inj 4 Mg/2 Ml Vial IV PUSH Q6H PRN Nausea And Vomiting Sacubitril/Valsartan 1 tab 06/28/25 09:00 Sacubitril/Valsartan 24-26 Mg Tablet PO Q12HR [facility] Radiology Results: ITS Impressions Head CT 06/27/25 08:23 IMPRESSION: 1. No acute intracranial findings. Chest/Abdomen/Pelvis CT 06/27/25 10:17 IMPRESSION: CHEST- 1. Small pericardial effusion. 2. Emphysema. Recommend annual screening CT chest. 3. Otherwise no acute abnormality. ABDOMEN/PELVIS- 1. No acute findings. Chest X-Ray 06/27/25 10:25 IMPRESSION: 1. No acute cardiopulmonary findings given portable technique. Labs Labs: Laboratory Results - last 24 hr 06/27/25 06/27/25 06/27/25 07:59 10:56 16:56 WBC 6.9 RBC 4.34 Hgb 12.9 Hct 39.3 MCV 90.6 MCH 29.7 MCHC 32.8 RDW 12.8 Plt Count 169 MPV 10.7 H Immature Gran % (Auto) 0.4 Neut % (Auto) 69.7 Lymph % (Auto) 21.6 [place] % (Auto) 7.1 Eos % (Auto) 0.6 Baso % (Auto) 0.6 Lymph # (Auto) 1.49 [place] # (Auto) 0.5 Eos # (Auto) 0.0 Baso # (Auto) 0.0 Abs Immat Gran (auto) 0.03 Absolute Neuts (auto) 4.8 Absolute Nucleated RBC 0.000 Nucleated RBC % 0.0 PT 14.4 INR 1.1 APTT 69.1 H Troponin I 3.780 H* D 15.900 H* D Triglycerides 58 Cholesterol 177 LDL Cholesterol Direct 89 HDL Direct 61 06/28/25 06/28/25 00:21 05:50 WBC 8.1 RBC 4.41 Hgb 13.1 Hct 39.5 MCV 89.6 MCH 29.7 MCHC 33.2 RDW 12.7 Plt Count 183 MPV 10.8 H Immature Gran % (Auto) 0.4 Neut % (Auto) 58.1 Lymph % (Auto) 29.8 [place] % (Auto) 9.1 H Eos % (Auto) 1.7 Baso % (Auto) 0.9 Lymph # (Auto) 2.42 [place] # (Auto) 0.7 H Eos # (Auto) 0.1 Baso # (Auto) 0.1 Abs Immat Gran (auto) 0.03 Absolute Neuts (auto) 4.7 Absolute Nucleated RBC 0.000 Nucleated RBC % 0.0 PT INR APTT 89.6 H 69.6 H Troponin I Triglycerides Cholesterol LDL Cholesterol Direct HDL Direct
[2025-06-28 08:38] LABS: Alanine Aminotransferase 32 U/L (6-35); Albumin Level 3.7 g/dL (3.5-5.1); Alkaline Phosphatase 154 U/L (38-126); Anion Gap 8 mmol/L (4-12); Aspartate Amino Transferase 84 U/L (14-36); Bilirubin,Total 1.2 mg/dL (0.2-1.3); Blood Urea Nitrogen 14 mg/dL (7-17); Calcium 8.9 mg/dL (8.4-10.2); Carbon Dioxide 24 mmol/L (22-30); Chloride 101 mmol/L (98-107); Estimated CRCL calculation 40 ml/min; Estimated Glomerular Filt Rate > 60; Glucose 175 mg/dL (65-110); Potassium 3.7 mmol/L (3.4-5.0); Sodium 133 mmol/L (137-145); Total Protein 7.2 g/dL (6.3-8.2); Troponin I 11.600 ng/mL (0.000-0.034)
[2025-06-28] MEDS: METOPROLOL TARTRATE 12.5 MG TABLET PO ×2 (09:35→20:57)
[2025-06-28] MEDS: SACUBITRIL/VALSARTAN 24-26 MG TABLET 1 TAB PO ×2 (09:35→21:29)
[2025-06-28] MEDS: DOCUSATE SODIUM 100 MG CAPSULE PO (09:36)
[2025-06-28] MEDS: ASPIRIN 81 MG ENTERIC TABLET PO (09:36)
[2025-06-28] MEDS: ATORVASTATIN 40 MG TABLET 80 MG PO (09:36)
[2025-06-28] MEDS: BISACODYL 5 MG TABLET EC PO (09:47)
--- NOTE | 2025-06-28 14:23 | PM.IMPN ---
Progress Note: A&P Assessment and Plan (1) NSTEMI (non-ST elevated myocardial infarction): Code(s): I21.4 - Non-ST elevation (NSTEMI) myocardial infarction Status: Acute Assessment and Plan: EKG: LBBB, repeat continues to show LBBB Troponins highly uptrending x3 0.06 > 3.57 > 15.9 > 11 Plan: Seen by cardiology, heparin drip active. Started on Entresto b.i.d. To start Jardiance if vitals tolerating Entresto. Discuss life vest to prevent sudden cardiac arrest per cardiology Anticipate cardiac cath tomorrow 06/29 Echo ordered-EF 15-20% severe LVE, mild LVH, grade I diastolic dysfunction, mild , severe MAC, mod MV calcifications, trace TR. (2) History of gastroesophageal reflux (GERD): Code(s): Z87.19 - Personal history of other diseases of the digestive system Status: Acute Assessment and Plan: GI prophylaxis (3) Depression: Qualifiers: Depression Type: unspecified Qualified Code(s): F32.A - Depression, unspecified Code(s): F32.9 - Major depressive disorder, single episode, unspecified Status: Acute Assessment and Plan: On antidepressant that starts with Bu per patient- likely bupropion, will need confirmation (4) Dementia: Code(s): F03.90 - Unspecified dementia, unspecified severity, without behavioral disturbance, psychotic disturbance, mood disturbance, and anxiety Status: Acute Assessment and Plan: At baseline per sister, this has been progressing for several months Plan: Reorientation when needed Plan DVT prophylaxis: currently on heparin drip, transition to subq heparin when off drip Subjective Date/time seen: 06/28/25 14:23 Review of Systems Review of Systems: AAOx2 - baseline per family Constitutional: Constitutional: Reports as per HPI Eyes: Eyes: Reports as per HPI Cardiovascular: Cardiovascular: Reports as per HPI Respiratory: Respiratory: Reports as per HPI Gastrointestinal: Gastrointestinal: Reports as per HPI Musculoskeletal: Musculoskeletal: Reports as per HPI Integumentary/Breasts: Skin/Breast: Reports as per HPI Neurologic: Reports system reviewed and no additional complaints, except as documented and Reports as per HPI Psychiatric: Psychiatric: Reports as per HPI Exam Const: General: no acute distress HENMT: Face/Nose/Sinus: Normal nares present Mouth: Yes moist mucous membranes Eyes: General: appearance normal, both eyes and all related structures Sclera: sclerae normal Pupils: Equal, round and reactive pupils present EOM: EOMs intact bilaterally Neck: Neck: supple and no JVD Resp: Effort & Inspection: normal respiratory effort Auscultation: clear to auscultation bilaterally Cardio: Rate: regular rate Rhythm: regular rhythm GI: Auscultation: normal bowel sounds Neuro: Cranial nerves: Yes Equal, round and reactive pupils present Speech: normal speech Psych: Affect: Anxious affect present Objective Data Vital Signs Vital Signs: Vital Signs - 24 hr 06/27/25 14:30 06/27/25 14:31 06/27/25 14:45 Temperature Pulse Rate 82 80 82 Respiratory Rate 18 20 19 Blood Pressure 163/75 H Pulse Oximetry 97 97 99 Oxygen Delivery 06/27/25 14:46 06/27/25 15:00 06/27/25 15:01 Temperature Pulse Rate 88 83 81 Respiratory Rate 17 21 H 19 Blood Pressure 145/80 H 150/73 H Pulse Oximetry 97 97 97 Oxygen Delivery 06/27/25 19:50 06/27/25 20:00 06/27/25 20:00 Temperature 97.8 F Pulse Rate 82 77 Respiratory Rate 17 Blood Pressure 132/77 Pulse Oximetry 96 Oxygen Delivery Room Air 06/27/25 20:38 06/27/25 22:00 06/27/25 23:56 Temperature 98.2 F Pulse Rate 88 76 77 Respiratory Rate 15 Blood Pressure 130/64 Pulse Oximetry 95 Oxygen Delivery 06/28/25 00:00 06/28/25 00:00 06/28/25 02:00 Temperature Pulse Rate 68 72 Respiratory Rate Blood Pressure Pulse Oximetry Oxygen Delivery Room Air 06/28/25 04:00 06/28/25 04:00 06/28/25 04:00 Temperature 97.6 F Pulse Rate 71 70 Respiratory Rate 18 Blood Pressure 138/63 Pulse Oximetry 96 Oxygen Delivery Room Air 06/28/25 06:00 06/28/25 08:00 06/28/25 08:30 Temperature 96.5 F L Pulse Rate 73 75 71 Respiratory Rate 12 Blood Pressure 116/56 L Pulse Oximetry 96 Oxygen Delivery 06/28/25 09:35 06/28/25 10:30 06/28/25 12:00 Temperature 96.5 F L Pulse Rate 71 68 83 Respiratory Rate 20 Blood Pressure 137/64 Pulse Oximetry 95 Oxygen Delivery Intake/Output Intake/Output: Intake & Output 06/25/25 06/26/25 06/27/25 06/28/25 23:59 23:59 23:59 23:59 Intake Total 1765.4 788 Output Total 200 400 Balance 1565.4 388 Meds/Results Medications: Active Medications Generic Name Dose Route Start Last Admin Trade Name Freq PRN Reason Stop Dose Admin Al Hydrox/Mg Hydrox/Simethicone 30 ml 06/27/25 14:25 Mag Hydrox/Al Hydrox/Simeth 30 Ml Udc PO QID PRN Dyspepsia Artificial Tears 1 drop 06/27/25 14:49 Artificial Tears Ophth Soln 15 Ml Bottle EACH EYE QID PRN Dry Eye(s) Aspirin 81 mg 06/28/25 09:00 06/28/25 09:36 Aspirin 81 Mg Enteric Tablet PO 81 mg QAM MAIRA Administration Atorvastatin Calcium 80 mg 06/28/25 09:00 06/28/25 09:36 Atorvastatin 40 Mg Tablet PO 80 mg DAILY MAIRA Administration Bisacodyl 5 mg 06/27/25 14:25 06/28/25 09:47 Bisacodyl 5 Mg Tablet Ec PO 5 mg DAILY PRN Administration Constipation Docusate Sodium 100 mg 06/27/25 17:00 06/28/25 09:36 Docusate Sodium 100 Mg Capsule PO 100 mg BID MAIRA Administration Heparin Sodium (Porcine) 4,000 units 06/27/25 10:52 Heparin Sodium 5,000 Units/Ml Vial IV PUSH PRN PRN aPTT less than 55 seconds Heparin Sodium (Porcine) 2,000 units 06/27/25 10:52 06/28/25 07:00 Heparin Sodium 5,000 Units/Ml Vial IV PUSH 2,000 units PRN PRN Administration aPTT 55 - 70 seconds Metoprolol Tartrate 12.5 mg 06/27/25 21:00 06/28/25 09:35 Metoprolol Tartrate 12.5 Mg Tablet PO 12.5 mg Q12HR MAIRA Administration Morphine Sulfate 2 mg 06/27/25 14:37 Morphine Sulfate (*Crx) 4 Mg/Ml Inj IV PUSH Q4H PRN Pain Rated 7-10 Naloxone HCl 0.1 mg 06/27/25 14:25 Naloxone Hcl 0.4 Mg/Ml Vial IV PUSH Q2M PRN Opiate Reversal Ondansetron HCl 4 mg 06/27/25 14:25 Ondansetron Inj 4 Mg/2 Ml Vial IV PUSH Q6H PRN Nausea And Vomiting Sacubitril/Valsartan 1 tab 06/28/25 09:00 06/28/25 09:35 Sacubitril/Valsartan 24-26 Mg Tablet PO 1 tab Q12HR MAIRA Administration Radiology Results: ITS Impressions Head CT 06/27/25 08:23 IMPRESSION: 1. No acute intracranial findings. Chest/Abdomen/Pelvis CT 06/27/25 10:17 IMPRESSION: CHEST- 1. Small pericardial effusion. 2. Emphysema. Recommend annual screening CT chest. 3. Otherwise no acute abnormality. ABDOMEN/PELVIS- 1. No acute findings. Chest X-Ray 06/27/25 10:25 IMPRESSION: 1. No acute cardiopulmonary findings given portable technique. Labs Labs: Laboratory Results - last 24 hr 06/27/25 06/28/25 06/28/25 16:56 00:21 05:50 WBC 6.9 8.1 RBC 4.34 4.41 Hgb 12.9 13.1 Hct 39.3 39.5 MCV 90.6 89.6 MCH 29.7 29.7 MCHC 32.8 33.2 RDW 12.8 12.7 Plt Count 169 183 MPV 10.7 H 10.8 H Immature Gran % (Auto) 0.4 0.4 Neut % (Auto) 69.7 58.1 Lymph % (Auto) 21.6 29.8 [place] % (Auto) 7.1 9.1 H Eos % (Auto) 0.6 1.7 Baso % (Auto) 0.6 0.9 Lymph # (Auto) 1.49 2.42 [place] # (Auto) 0.5 0.7 H Eos # (Auto) 0.0 0.1 Baso # (Auto) 0.0 0.1 Abs Immat Gran (auto) 0.03 0.03 Absolute Neuts (auto) 4.8 4.7 Absolute Nucleated RBC 0.000 0.000 Nucleated RBC % 0.0 0.0 PT 14.4 INR 1.1 APTT 69.1 H 89.6 H 69.6 H Sodium Potassium Chloride Carbon Dioxide Anion Gap BUN Creatinine Estim Creat Clear Calc Estimated GFR Glucose Calcium Total Bilirubin AST ALT Alkaline Phosphatase Troponin I Total Protein Albumin Triglycerides 58 Cholesterol 177 LDL Cholesterol Direct 89 HDL Direct 61 06/28/25 07:59 WBC RBC Hgb Hct MCV MCH MCHC RDW Plt Count MPV Immature Gran % (Auto) Neut % (Auto) Lymph % (Auto) [place] % (Auto) Eos % (Auto) Baso % (Auto) Lymph # (Auto) [place] # (Auto) Eos # (Auto) Baso # (Auto) Abs Immat Gran (auto) Absolute Neuts (auto) Absolute Nucleated RBC Nucleated RBC % PT INR APTT Sodium 133 L Potassium 3.7 Chloride 101 Carbon Dioxide 24 Anion Gap 8 BUN 14 Creatinine 0.71 Estim Creat Clear Calc 40 Estimated GFR > 60 Glucose 175 H Calcium 8.9 Total Bilirubin 1.2 AST 84 H ALT 32 Alkaline Phosphatase 154 H Troponin I 11.600 H* Total Protein 7.2 Albumin 3.7 Triglycerides Cholesterol LDL Cholesterol Direct HDL Direct Quality VTE Prophylaxis VTE prophylaxis: mechanical ordered Hospitalist MIPS Advance Care Plan I have confirmed that the patient's Advanced Care Plan is present, code status is documented, or surrogate decision maker is listed in patient medical record.: Yes Medication Reconciliation I have utilized all available resources to obtain, update and review the patients current medications (includes all prescriptions, OTC, herbals, cannabis, and nutritional supplements).: Yes
[2025-06-28 15:19] LABS: Partial Thromboplastin Time 102.0 Seconds (22.3-36.8)
[2025-06-28] MEDS: HEPARIN SOD/D5W 100 UNITS/ML 25,000 UNITS/250 ML BAG 8 UNITS IV CONT (19:57)
[2025-06-28 22:47] LABS: Partial Thromboplastin Time 64.0 Seconds (22.3-36.8)
[2025-06-29] VITALS (35 sets, daily range): BP systolic 91–134; BP diastolic 45–82; PULSE 70–103; RESP 14–20; TEMP 36.4–36.7; O2SAT 94–100
--- NOTE | 2025-06-29 07:47 | PM.PNCARD ---
Progress Note: A&P Assessment and Plan (1) NSTEMI (non-ST elevated myocardial infarction): Code(s): I21.4 - Non-ST elevation (NSTEMI) myocardial infarction Status: Acute Assessment and Plan: On aspirin daily, on heparin drip, on Atorvastatin 80 mg daily and on Metoprolol Tartate 12.5 mg BID. Troponin peaked at 15.9. Risks/benefits/alternative to LHC discuss with patient and she is agreeable. Keep NPO for procedure. Will consult [facility] for it. (2) LBBB (left bundle branch block): Code(s): I44.7 - Left bundle-branch block, unspecified Status: Acute (3) Systolic dysfunction: Code(s): I51.9 - Heart disease, unspecified Status: Acute Assessment and Plan: Severe. Appears euvolemic. 06/27/25 Echo: EF 15-20%, severe LVE, mild LVH, grade I diastolic dysfunction (E/e' 9), mild ([place] 1.6 cm2 with DI 0.49), severe MAC, mod MV calcifications, trace TR. On Metoprolol, Entresto 24-26 mg BID. Start Jardiance 10 mg daily. Needs LHC as above. Discussed Life vest to prevent sudden cardiac arrest with patient and patient's daughter. Will order it and see if she would be OK wearing it. Subjective Date/time seen: 06/29/25 07:47 Interval history: Denies any more chest pains. Denies sob. Exam Const: General: cooperative, healthy appearing and comfortable Orientation/consciousness: oriented to person, oriented to place and oriented to time Resp: Auscultation: clear to auscultation bilaterally, no crackles, no rales, no rhonchi and no wheezes Cardio: Rate: regular rate Rhythm: regular rhythm Heart sounds: no murmurs Peripheral pulses: dorsalis pedis present Neuro: General: oriented to person, oriented to place and oriented to time Extrem: Right lower extremity: no edema Left lower extremity: no edema Objective Data Vital Signs Vital Signs: Vital Signs - 24 hr 06/28/25 08:00 06/28/25 08:30 06/28/25 09:35 Temperature 96.5 F L Pulse Rate 75 71 71 Respiratory Rate 12 Blood Pressure 116/56 L Pulse Oximetry 96 06/28/25 10:30 06/28/25 12:00 06/28/25 14:00 Temperature 96.5 F L Pulse Rate 68 83 77 Respiratory Rate 20 Blood Pressure 137/64 Pulse Oximetry 95 06/28/25 16:00 06/28/25 16:30 06/28/25 18:00 Temperature 98.2 F Pulse Rate 78 70 79 Respiratory Rate 12 Blood Pressure 113/54 L Pulse Oximetry 97 06/28/25 20:00 06/28/25 20:00 06/28/25 20:57 Temperature 98.0 F Pulse Rate 68 76 77 Respiratory Rate 15 Blood Pressure 126/60 Pulse Oximetry 97 06/28/25 22:00 06/29/25 00:00 06/29/25 00:00 Temperature 98.0 F Pulse Rate 73 72 70 Respiratory Rate 17 Blood Pressure 119/72 Pulse Oximetry 95 06/29/25 03:37 06/29/25 04:00 06/29/25 06:57 Temperature 97.6 F Pulse Rate 71 73 76 Respiratory Rate 17 Blood Pressure 128/66 Pulse Oximetry 95 Intake/Output Intake/Output: Intake & Output 06/26/25 06/27/25 06/28/25 06/29/25 23:59 23:59 23:59 23:59 Intake Total 1765.4 1028 248.3 Output Total 200 700 450 Balance 1565.4 328 -201.7 Meds/Results Medications: Active Medications Generic Name Dose Route Start Last Admin Trade Name Freq PRN Reason Stop Dose Admin Al Hydrox/Mg Hydrox/Simethicone 30 ml 06/27/25 14:25 Mag Hydrox/Al Hydrox/Simeth 30 Ml Udc PO QID PRN Dyspepsia Artificial Tears 1 drop 06/27/25 14:49 Artificial Tears Ophth Soln 15 Ml Bottle EACH EYE QID PRN Dry Eye(s) Aspirin 81 mg 06/28/25 09:00 06/28/25 09:36 Aspirin 81 Mg Enteric Tablet PO 81 mg QAM MAIRA Administration Atorvastatin Calcium 80 mg 06/28/25 09:00 06/28/25 09:36 Atorvastatin 40 Mg Tablet PO 80 mg DAILY MAIRA Administration Bisacodyl 5 mg 06/27/25 14:25 06/28/25 09:47 Bisacodyl 5 Mg Tablet Ec PO 5 mg DAILY PRN Administration Constipation Docusate Sodium 100 mg 06/27/25 17:00 06/28/25 16:02 Docusate Sodium 100 Mg Capsule PO Not Given BID [facility] Empagliflozin 10 mg 06/29/25 09:00 Empagliflozin 10 Mg Tablet PO DAILY [facility] Heparin Sodium (Porcine) 4,000 units 06/27/25 10:52 Heparin Sodium 5,000 Units/Ml Vial IV PUSH PRN PRN aPTT less than 55 seconds Heparin Sodium (Porcine) 2,000 units 06/27/25 10:52 06/29/25 01:56 Heparin Sodium 5,000 Units/Ml Vial IV PUSH 2,000 units PRN PRN Administration aPTT 55 - 70 seconds Heparin Sodium/Dextrose 25,000 units in 250 mls @ 9 mls/hr 06/28/25 15:35 06/29/25 01:59 Heparin Sodium/D5w 100 Units/Ml IV CONT 900 units/hr .Q24H MAIRA 9 mls/hr Protocol Titration 900 UNITS/HR Metoprolol Tartrate 12.5 mg 06/27/25 21:00 06/28/25 20:57 Metoprolol Tartrate 12.5 Mg Tablet PO 12.5 mg Q12HR MAIRA Administration Morphine Sulfate 2 mg 06/27/25 14:37 Morphine Sulfate (*Crx) 4 Mg/Ml Inj IV PUSH Q4H PRN Pain Rated 7-10 Naloxone HCl 0.1 mg 06/27/25 14:25 Naloxone Hcl 0.4 Mg/Ml Vial IV PUSH Q2M PRN Opiate Reversal Ondansetron HCl 4 mg 06/27/25 14:25 Ondansetron Inj 4 Mg/2 Ml Vial IV PUSH Q6H PRN Nausea And Vomiting Sacubitril/Valsartan 1 tab 06/28/25 09:00 06/28/25 21:29 Sacubitril/Valsartan 24-26 Mg Tablet PO 1 tab Q12HR MAIRA Administration Radiology Results: ITS Impressions Head CT 06/27/25 08:23 IMPRESSION: 1. No acute intracranial findings. Chest/Abdomen/Pelvis CT 06/27/25 10:17 IMPRESSION: CHEST- 1. Small pericardial effusion. 2. Emphysema. Recommend annual screening CT chest. 3. Otherwise no acute abnormality. ABDOMEN/PELVIS- 1. No acute findings. Chest X-Ray 06/27/25 10:25 IMPRESSION: 1. No acute cardiopulmonary findings given portable technique. Labs Labs: Laboratory Results - last 24 hr 06/28/25 06/28/25 06/28/25 07:59 15:00 22:22 APTT 102.0 H 64.0 H Sodium 133 L Potassium 3.7 Chloride 101 Carbon Dioxide 24 Anion Gap 8 BUN 14 Creatinine 0.71 Estim Creat Clear Calc 40 Estimated GFR > 60 Glucose 175 H Calcium 8.9 Total Bilirubin 1.2 AST 84 H ALT 32 Alkaline Phosphatase 154 H Troponin I 11.600 H* Total Protein 7.2 Albumin 3.7
[2025-06-29] MEDS: ASPIRIN 81 MG ENTERIC TABLET PO (08:27)
[2025-06-29] MEDS: METOPROLOL TARTRATE 12.5 MG TABLET PO ×2 (08:27→20:25)
[2025-06-29] MEDS: ATORVASTATIN 40 MG TABLET 80 MG PO (08:27)
[2025-06-29] MEDS: SACUBITRIL/VALSARTAN 24-26 MG TABLET 1 TAB PO ×2 (08:28→20:25)
[2025-06-29 08:33] LABS: Hematocrit 42.5 % (37.0-47.0); Hemoglobin 14.2 g/dL (12.0-15.0); Immature Granulocyte Percent A 0.2 % (0-0.5); Lymphocytes Absolute Auto 2.66 K/mm3 (0.9-3.2); Mean Corpuscular HGB Conc 33.4 g/dl (32-36); Mean Corpuscular Hemoglobin 29.8 pg (26-34); Mean Corpuscular Volume 89.3 fl (80-100); Nucleated Red Blood Cells Absolute Auto 0.000 K/mm3 (0.0-0.012); Nucleated Red Blood Cells Perc 0.0 % (0.0-0.2); Platelet Count Result 201 k/mm3 (150-375); Red Blood Count 4.76 M/mm3 (4.2-5.4); White Blood Count 8.7 K/mm3 (4.5-10.0)
[2025-06-29] MEDS: EMPAGLIFLOZIN 10 MG TABLET PO (08:33)
[2025-06-29 08:47] LABS: Partial Thromboplastin Time 151.4 Seconds (22.3-36.8)
[2025-06-29 10:39] LABS: Partial Thromboplastin Time 67.6 Seconds (22.3-36.8)
[2025-06-29 13:04] LABS: Alanine Aminotransferase 23 U/L (6-35); Albumin Level 3.6 g/dL (3.5-5.1); Alkaline Phosphatase 152 U/L (38-126); Anion Gap 9 mmol/L (4-12); Aspartate Amino Transferase 130 U/L (14-36); Bilirubin,Total 1.0 mg/dL (0.2-1.3); Blood Urea Nitrogen 13 mg/dL (7-17); Calcium 9.0 mg/dL (8.4-10.2); Carbon Dioxide 20 mmol/L (22-30); Chloride 102 mmol/L (98-107); Estimated CRCL calculation 43 ml/min; Estimated Glomerular Filt Rate > 60; Glucose 110 mg/dL (65-110); Potassium 3.7 mmol/L (3.4-5.0); Sodium 131 mmol/L (137-145); Total Protein 7.0 g/dL (6.3-8.2)
--- NOTE | 2025-06-29 14:43 | WPDHPUPDATE1 ---
History and Physical Update Update Date/Time: 06/29/25 14:43 History and Physical has been reviewed, including an updated exam of the patient. There are NO changes in the patient's condition. Risks, benefits, and alternatives have been discussed and questions answered. Patient agrees to proceed with procedure.
--- NOTE | 2025-06-29 14:43 | WPDMODSED ---
Moderate Sedation Note-Pt Data Patient Data Allergies Allergy/AdvReac Type Severity Reaction Status Date / Time No Known Allergies Allergy Verified 06/27/25 16:05 Home Medications ?Medication ?Instructions ?Recorded ?Confirmed ?Type bupropion HCl 300 mg 24 hr tablet, 300 mg PO QAM #90 tabs 07/18/24 06/27/25 Rx extended release trazodone 50 mg tablet 50 mg PO QHS PRN sleep #30 tabs 07/18/24 06/27/25 Rx gabapentin 300 mg capsule See Rx Instructions PO DAILY #120 01/15/25 06/27/25 Rx caps clindamycin phosphate 1 % topical 1 applic topical DAILY 06/27/25 06/27/25 History swab doxycycline hyclate 20 mg tablet 20 mg PO Q24H 06/27/25 06/27/25 History polyethylene glycol 3350 17 17 g PO DAILY 06/27/25 06/27/25 History gram/dose oral powder (Miralax) triamcinolone acetonide 0.1 % 1 applic topical TID PRN 06/27/25 06/27/25 History topical cream dermititis on face Current Medications: Active Medications Al Hydrox/Mg Hydrox/Simethicone (Mag Hydrox/Al Hydrox/Simeth 30 Ml Udc) 30 ml PO QID PRN PRN Reason: Dyspepsia Artificial Tears (Artificial Tears Ophth Soln 15 Ml Bottle) 1 drop EACH EYE QID PRN PRN Reason: Dry Eye(s) Aspirin (Aspirin 81 Mg Enteric Tablet) 81 mg PO QAM [facility] Last Admin: 06/29/25 08:27 Dose: 81 mg Atorvastatin Calcium (Atorvastatin 40 Mg Tablet) 80 mg PO DAILY [facility] Last Admin: 06/29/25 08:27 Dose: 80 mg Bisacodyl (Bisacodyl 5 Mg Tablet Ec) 5 mg PO DAILY PRN PRN Reason: Constipation Last Admin: 06/28/25 09:47 Dose: 5 mg Docusate Sodium (Docusate Sodium 100 Mg Capsule) 100 mg PO BID [facility] Last Admin: 06/29/25 11:07 Dose: Not Given Empagliflozin (Empagliflozin 10 Mg Tablet) 10 mg PO DAILY [facility] Last Admin: 06/29/25 08:33 Dose: 10 mg Heparin Sodium (Porcine) (Heparin Sodium 5,000 Units/Ml Vial) 4,000 units IV PUSH PRN PRN PRN Reason: aPTT less than 55 seconds Heparin Sodium (Porcine) (Heparin Sodium 5,000 Units/Ml Vial) 2,000 units IV PUSH PRN PRN PRN Reason: aPTT 55 - 70 seconds Last Admin: 06/29/25 10:45 Dose: 2,000 units Heparin Sodium/Dextrose (Heparin Sodium/D5w 100 Units/Ml) 25,000 units in 250 mls @ 10 mls/hr IV CONT .Q24H [facility]; Protocol Last Titration: 06/29/25 10:43 Dose: 1,000 units/hr, 10 mls/hr Metoprolol Tartrate (Metoprolol Tartrate 12.5 Mg Tablet) 12.5 mg PO Q12HR [facility] Last Admin: 06/29/25 08:27 Dose: 12.5 mg Morphine Sulfate (Morphine Sulfate (*Crx) 4 Mg/Ml Inj) 2 mg IV PUSH Q4H PRN PRN Reason: Pain Rated 7-10 Naloxone HCl (Naloxone Hcl 0.4 Mg/Ml Vial) 0.1 mg IV PUSH Q2M PRN PRN Reason: Opiate Reversal Ondansetron HCl (Ondansetron Inj 4 Mg/2 Ml Vial) 4 mg IV PUSH Q6H PRN PRN Reason: Nausea And Vomiting Sacubitril/Valsartan (Sacubitril/Valsartan 24-26 Mg Tablet) 1 tab PO Q12HR [facility] Last Admin: 06/29/25 08:28 Dose: 1 tab Sedation/Anesthesia: No previous sedation/anesthesia problems (including family history). [facility] Past Medical History Medical History (Updated 06/28/25 @ 08:22 by Jim Christie DO) Constipation Abdominal pain History of vaginal delivery x 3 Hx of breast cancer Depression Ankle fracture Rt x2. Arthritis History of melena GERD (gastroesophageal reflux disease) IBS (irritable bowel syndrome) Ulcer Hx of hemorrhoids COPD (chronic obstructive pulmonary disease) LBBB (left bundle branch block) Peripheral neuropathy Cataracts, bilateral History of COPD History of peripheral neuropathy History of gastroesophageal reflux (GERD) History of depression Surgical History Surgical History History of bilateral knee arthroplasty History of hemorrhoidectomy H/O cataract removal with insertion of prosthetic lens History of mastectomy Family History Family History Sibling Family history of diabetes mellitus in first degree relative Family history of malignant neoplasm of breast in first degree relative Patient's sister is in good health Father No family history of malignant neoplasm Family history of lung cancer Mother Patient's mother is Family history of Alzheimer's disease Family history of malignant melanoma Social History Social History Social History: Caffeine-coffee Smoking packs per day: 0.25 Smoking cigarettes per day: 5.0 Years smoked: 40 Smoking pack-years: 10.00 Smoking status: Former smoker Tobacco type: cigarettes Second hand tobacco smoke exposure: No Smoking end date: 09/17/98 Alcohol intake: never Substance use: never Substance use type: does not use Do You Feel Safe in your Home?: Yes Lack of Transportation: No Lack of Food: Never True Current Housing: I Have Housing Concerned About Future Housing: No Difficulty Paying Gas/Electric Bills: No Difficulty Paying for Meds: No Currently Unemployed: No Education: High School Diploma/GED Difficulty w/ Childcare or Family Care: No Living arrangements: with family Spiritual care concerns: No Mod Sed Physical Exam Physical Exam Pre Procedural Exam: Normal: Lungs, Heart Rate and Heart Rhythm Hours since solid foods: 15 Hours since liquid intake: 15 Mallampati Classification: class II Internal Medicine - PN: Obj Da Vital Signs Vital Signs: Vital Signs - 24 hr 06/28/25 16:00 06/28/25 16:30 06/28/25 18:00 Temperature 36.8 C Pulse Rate 78 70 79 Respiratory Rate 12 Blood Pressure 113/54 L Pulse Oximetry 97 06/28/25 20:00 06/28/25 20:00 06/28/25 20:57 Temperature 36.7 C Pulse Rate 68 76 77 Respiratory Rate 15 Blood Pressure 126/60 Pulse Oximetry 97 06/28/25 22:00 06/29/25 00:00 06/29/25 00:00 Temperature 36.7 C Pulse Rate 73 72 70 Respiratory Rate 17 Blood Pressure 119/72 Pulse Oximetry 95 06/29/25 03:37 06/29/25 04:00 06/29/25 06:57 Temperature 36.4 C Pulse Rate 71 73 76 Respiratory Rate 17 Blood Pressure 128/66 Pulse Oximetry 95 06/29/25 08:00 06/29/25 08:00 06/29/25 08:27 Temperature 36.6 C Pulse Rate 73 75 77 Respiratory Rate 16 Blood Pressure 124/68 Pulse Oximetry 96 06/29/25 10:00 06/29/25 11:54 06/29/25 12:00 Temperature 36.6 C Pulse Rate 76 79 76 Respiratory Rate 20 Blood Pressure 102/63 Pulse Oximetry 94 06/29/25 14:00 Temperature Pulse Rate 79 Respiratory Rate Blood Pressure Pulse Oximetry Intake/Output Intake/Output: Intake & Output 06/26/25 06/27/25 06/28/25 06/29/25 23:59 23:59 23:59 23:59 Intake Total 1765.4 1028 326.9 Output Total 200 700 450 Balance 1565.4 328 -123.1 Meds/Results Medications: Active Medications Generic Name Dose Route Start Last Admin Trade Name Freq PRN Reason Stop Dose Admin Al Hydrox/Mg Hydrox/Simethicone 30 ml 06/27/25 14:25 Mag Hydrox/Al Hydrox/Simeth 30 Ml Udc PO QID PRN Dyspepsia Artificial Tears 1 drop 06/27/25 14:49 Artificial Tears Ophth Soln 15 Ml Bottle EACH EYE QID PRN Dry Eye(s) Aspirin 81 mg 06/28/25 09:00 06/29/25 08:27 Aspirin 81 Mg Enteric Tablet PO 81 mg QAM [facility] Administration Atorvastatin Calcium 80 mg 06/28/25 09:00 06/29/25 08:27 Atorvastatin 40 Mg Tablet PO 80 mg DAILY [facility] Administration Bisacodyl 5 mg 06/27/25 14:25 06/28/25 09:47 Bisacodyl 5 Mg Tablet Ec PO 5 mg DAILY PRN Administration Constipation Docusate Sodium 100 mg 06/27/25 17:00 06/29/25 11:07 Docusate Sodium 100 Mg Capsule PO Not Given BID [facility] Empagliflozin 10 mg 06/29/25 09:00 06/29/25 08:33 Empagliflozin 10 Mg Tablet PO 10 mg DAILY [facility] Administration Heparin Sodium (Porcine) 4,000 units 06/27/25 10:52 Heparin Sodium 5,000 Units/Ml Vial IV PUSH PRN PRN aPTT less than 55 seconds Heparin Sodium (Porcine) 2,000 units 06/27/25 10:52 06/29/25 10:45 Heparin Sodium 5,000 Units/Ml Vial IV PUSH 2,000 units PRN PRN Administration aPTT 55 - 70 seconds Heparin Sodium/Dextrose 25,000 units in 250 mls @ 10 mls/hr 06/28/25 15:35 06/29/25 10:43 Heparin Sodium/D5w 100 Units/Ml IV CONT 1,000 units/hr .Q24H [facility] 10 mls/hr Protocol Titration 1,000 UNITS/HR Metoprolol Tartrate 12.5 mg 06/27/25 21:00 06/29/25 08:27 Metoprolol Tartrate 12.5 Mg Tablet PO 12.5 mg Q12HR [facility] Administration Morphine Sulfate 2 mg 06/27/25 14:37 Morphine Sulfate (*Crx) 4 Mg/Ml Inj IV PUSH Q4H PRN Pain Rated 7-10 Naloxone HCl 0.1 mg 06/27/25 14:25 Naloxone Hcl 0.4 Mg/Ml Vial IV PUSH Q2M PRN Opiate Reversal Ondansetron HCl 4 mg 06/27/25 14:25 Ondansetron Inj 4 Mg/2 Ml Vial IV PUSH Q6H PRN Nausea And Vomiting Sacubitril/Valsartan 1 tab 06/28/25 09:00 06/29/25 08:28 Sacubitril/Valsartan 24-26 Mg Tablet PO 1 tab Q12HR [facility] Administration Radiology Results: ITS Impressions Head CT 06/27/25 08:23 IMPRESSION: 1. No acute intracranial findings. Chest/Abdomen/Pelvis CT 06/27/25 10:17 IMPRESSION: CHEST- 1. Small pericardial effusion. 2. Emphysema. Recommend annual screening CT chest. 3. Otherwise no acute abnormality. ABDOMEN/PELVIS- 1. No acute findings. Chest X-Ray 06/27/25 10:25 IMPRESSION: 1. No acute cardiopulmonary findings given portable technique. Labs 06/29/25 08:27 06/29/25 08:27 Labs: Laboratory Results - last 24 hr 06/28/25 06/28/25 06/29/25 15:00 22:22 08:27 WBC 8.7 RBC 4.76 Hgb 14.2 Hct 42.5 MCV 89.3 MCH 29.8 MCHC 33.4 RDW 12.7 Plt Count 201 MPV 10.7 H Immature Gran % (Auto) 0.2 Neut % (Auto) 56.6 Lymph % (Auto) 30.7 [place] % (Auto) 8.9 H Eos % (Auto) 2.7 Baso % (Auto) 0.9 Lymph # (Auto) 2.66 [place] # (Auto) 0.8 H Eos # (Auto) 0.2 Baso # (Auto) 0.1 Abs Immat Gran (auto) 0.02 Absolute Neuts (auto) 4.9 Absolute Nucleated RBC 0.000 Nucleated RBC % 0.0 APTT 102.0 H 64.0 H 151.4 H Sodium 131 L Potassium 3.7 Chloride 102 Carbon Dioxide 20 L Anion Gap 9 BUN 13 Creatinine 0.68 L Estim Creat Clear Calc 43 Estimated GFR > 60 Glucose 110 Calcium 9.0 Total Bilirubin 1.0 AST 130 H ALT 23 Alkaline Phosphatase 152 H Total Protein 7.0 Albumin 3.6 06/29/25 10:10 WBC RBC Hgb Hct MCV MCH MCHC RDW Plt Count MPV Immature Gran % (Auto) Neut % (Auto) Lymph % (Auto) [place] % (Auto) Eos % (Auto) Baso % (Auto) Lymph # (Auto) [place] # (Auto) Eos # (Auto) Baso # (Auto) Abs Immat Gran (auto) Absolute Neuts (auto) Absolute Nucleated RBC Nucleated RBC % APTT 67.6 H Sodium Potassium Chloride Carbon Dioxide Anion Gap BUN Creatinine Estim Creat Clear Calc Estimated GFR Glucose Calcium Total Bilirubin AST ALT Alkaline Phosphatase Total Protein Albumin ASA Classification/Sedation ASA Classification/Sedation ASA Class: III Emergent: No Risks: Risks, benefits and alternatives explained and patient/family accepted plan for sedation. Patient re-evaluated immediately prior to sedation.
--- NOTE | 2025-06-29 15:12 | P.PNIM_ITS ---
Progress Note: A&P Assessment and Plan (1) NSTEMI (non-ST elevated myocardial infarction): Code(s): I21.4 - Non-ST elevation (NSTEMI) myocardial infarction Status: Acute Assessment and Plan: EKG: LBBB, repeat continues to show LBBB Troponins highly uptrending x3 0.06 > 3.57 > 15.9 > 11 Plan: Seen by cardiology, heparin drip active. Started on Entresto b.i.d. To start Jardiance if vitals tolerating Entresto. Discuss life vest to prevent sudden cardiac arrest per cardiology Going for cardiac cath today 06/29 (2) Heart failure with reduced ejection fraction: Code(s): I50.20 - Unspecified systolic (congestive) heart failure Status: Acute Assessment and Plan: Echo ordered-EF 15-20% severe LVE, mild LVH, grade I diastolic dysfunction, mild , severe MAC, mod MV calcifications, trace TR. Started on Entresto, Jardiance, metoprolol tartrate b.i.d. Cardiology is on board- Life vest recommended (3) History of gastroesophageal reflux (GERD): Code(s): Z87.19 - Personal history of other diseases of the digestive system Status: Acute Assessment and Plan: GI prophylaxis (4) Depression: Qualifiers: Depression Type: unspecified Qualified Code(s): F32.A - Depression, unspecified Code(s): F32.9 - Major depressive disorder, single episode, unspecified Status: Acute Assessment and Plan: On antidepressant that starts with Bu per patient- likely bupropion, will need confirmation (5) Dementia: Code(s): F03.90 - Unspecified dementia, unspecified severity, without behavioral disturbance, psychotic disturbance, mood disturbance, and anxiety Status: Acute Assessment and Plan: At baseline per sister, this has been progressing for several months Plan: Reorientation when needed Plan DVT prophylaxis: currently on heparin drip, transition to subq heparin when off drip Subjective Date/time seen: 06/29/25 15:12 Interval history: Denies any more chest pains. Denies sob. Review of Systems Review of Systems: AAOx2 - baseline per family Constitutional: Constitutional: Reports as per HPI Eyes: Eyes: Reports as per HPI Cardiovascular: Cardiovascular: Reports as per HPI Respiratory: Respiratory: Reports as per HPI Gastrointestinal: Gastrointestinal: Reports as per HPI Musculoskeletal: Musculoskeletal: Reports as per HPI Integumentary/Breasts: Skin/Breast: Reports as per HPI Neurologic: Reports system reviewed and no additional complaints, except as documented and Reports as per HPI Psychiatric: Psychiatric: Reports as per HPI Exam Const: General: no acute distress HENMT: Face/Nose/Sinus: Normal nares present Mouth: Yes moist mucous membranes Eyes: General: appearance normal, both eyes and all related structures Sclera: sclerae normal Pupils: Equal, round and reactive pupils present EOM: EOMs intact bilaterally Neck: Neck: supple and no JVD Resp: Effort & Inspection: normal respiratory effort Auscultation: clear to auscultation bilaterally Cardio: Rate: regular rate Rhythm: regular rhythm GI: Auscultation: normal bowel sounds Neuro: Cranial nerves: Yes Equal, round and reactive pupils present Speech: normal speech Psych: Affect: Anxious affect present Objective Data Vital Signs Vital Signs: Vital Signs - 24 hr 06/28/25 16:00 06/28/25 16:30 06/28/25 18:00 Temperature 98.2 F Pulse Rate 78 70 79 Respiratory Rate 12 Blood Pressure 113/54 L Pulse Oximetry 97 06/28/25 20:00 06/28/25 20:00 06/28/25 20:57 Temperature 98.0 F Pulse Rate 68 76 77 Respiratory Rate 15 Blood Pressure 126/60 Pulse Oximetry 97 06/28/25 22:00 06/29/25 00:00 06/29/25 00:00 Temperature 98.0 F Pulse Rate 73 72 70 Respiratory Rate 17 Blood Pressure 119/72 Pulse Oximetry 95 06/29/25 03:37 06/29/25 04:00 06/29/25 06:57 Temperature 97.6 F Pulse Rate 71 73 76 Respiratory Rate 17 Blood Pressure 128/66 Pulse Oximetry 95 06/29/25 08:00 06/29/25 08:00 06/29/25 08:27 Temperature 97.8 F Pulse Rate 73 75 77 Respiratory Rate 16 Blood Pressure 124/68 Pulse Oximetry 96 06/29/25 10:00 06/29/25 11:54 06/29/25 12:00 Temperature 97.8 F Pulse Rate 76 79 76 Respiratory Rate 20 Blood Pressure 102/63 Pulse Oximetry 94 06/29/25 14:00 Temperature Pulse Rate 79 Respiratory Rate Blood Pressure Pulse Oximetry Intake/Output Intake/Output: Intake & Output 06/26/25 06/27/25 06/28/25 06/29/25 23:59 23:59 23:59 23:59 Intake Total 1765.4 1028 326.9 Output Total 200 700 450 Balance 1565.4 328 -123.1 Meds/Results Medications: Active Medications Generic Name Dose Route Start Last Admin Trade Name Freq PRN Reason Stop Dose Admin Al Hydrox/Mg Hydrox/Simethicone 30 ml 06/27/25 14:25 Mag Hydrox/Al Hydrox/Simeth 30 Ml Udc PO QID PRN Dyspepsia Artificial Tears 1 drop 06/27/25 14:49 Artificial Tears Ophth Soln 15 Ml Bottle EACH EYE QID PRN Dry Eye(s) Aspirin 81 mg 06/28/25 09:00 06/29/25 08:27 Aspirin 81 Mg Enteric Tablet PO 81 mg QAM [facility] Administration Atorvastatin Calcium 80 mg 06/28/25 09:00 06/29/25 08:27 Atorvastatin 40 Mg Tablet PO 80 mg DAILY [facility] Administration Bisacodyl 5 mg 06/27/25 14:25 06/28/25 09:47 Bisacodyl 5 Mg Tablet Ec PO 5 mg DAILY PRN Administration Constipation Docusate Sodium 100 mg 06/27/25 17:00 06/29/25 11:07 Docusate Sodium 100 Mg Capsule PO Not Given BID [facility] Empagliflozin 10 mg 06/29/25 09:00 06/29/25 08:33 Empagliflozin 10 Mg Tablet PO 10 mg DAILY [facility] Administration Heparin Sodium (Porcine) 4,000 units 06/27/25 10:52 Heparin Sodium 5,000 Units/Ml Vial IV PUSH PRN PRN aPTT less than 55 seconds Heparin Sodium (Porcine) 2,000 units 06/27/25 10:52 06/29/25 10:45 Heparin Sodium 5,000 Units/Ml Vial IV PUSH 2,000 units PRN PRN Administration aPTT 55 - 70 seconds Heparin Sodium/Dextrose 25,000 units in 250 mls @ 10 mls/hr 06/28/25 15:35 06/29/25 10:43 Heparin Sodium/D5w 100 Units/Ml IV CONT 1,000 units/hr .Q24H [facility] 10 mls/hr Protocol Titration 1,000 UNITS/HR Metoprolol Tartrate 12.5 mg 06/27/25 21:00 06/29/25 08:27 Metoprolol Tartrate 12.5 Mg Tablet PO 12.5 mg Q12HR [facility] Administration Morphine Sulfate 2 mg 06/27/25 14:37 Morphine Sulfate (*Crx) 4 Mg/Ml Inj IV PUSH Q4H PRN Pain Rated 7-10 Naloxone HCl 0.1 mg 06/27/25 14:25 Naloxone Hcl 0.4 Mg/Ml Vial IV PUSH Q2M PRN Opiate Reversal Ondansetron HCl 4 mg 06/27/25 14:25 Ondansetron Inj 4 Mg/2 Ml Vial IV PUSH Q6H PRN Nausea And Vomiting Sacubitril/Valsartan 1 tab 06/28/25 09:00 06/29/25 08:28 Sacubitril/Valsartan 24-26 Mg Tablet PO 1 tab Q12HR [facility] Administration Radiology Results: ITS Impressions Head CT 06/27/25 08:23 IMPRESSION: 1. No acute intracranial findings. Chest/Abdomen/Pelvis CT 06/27/25 10:17 IMPRESSION: CHEST- 1. Small pericardial effusion. 2. Emphysema. Recommend annual screening CT chest. 3. Otherwise no acute abnormality. ABDOMEN/PELVIS- 1. No acute findings. Chest X-Ray 06/27/25 10:25 IMPRESSION: 1. No acute cardiopulmonary findings given portable technique. Labs Labs: Laboratory Results - last 24 hr 06/28/25 06/28/25 06/29/25 15:00 22:22 08:27 WBC 8.7 RBC 4.76 Hgb 14.2 Hct 42.5 MCV 89.3 MCH 29.8 MCHC 33.4 RDW 12.7 Plt Count 201 MPV 10.7 H Immature Gran % (Auto) 0.2 Neut % (Auto) 56.6 Lymph % (Auto) 30.7 [place] % (Auto) 8.9 H Eos % (Auto) 2.7 Baso % (Auto) 0.9 Lymph # (Auto) 2.66 [place] # (Auto) 0.8 H Eos # (Auto) 0.2 Baso # (Auto) 0.1 Abs Immat Gran (auto) 0.02 Absolute Neuts (auto) 4.9 Absolute Nucleated RBC 0.000 Nucleated RBC % 0.0 APTT 102.0 H 64.0 H 151.4 H Sodium 131 L Potassium 3.7 Chloride 102 Carbon Dioxide 20 L Anion Gap 9 BUN 13 Creatinine 0.68 L Estim Creat Clear Calc 43 Estimated GFR > 60 Glucose 110 Calcium 9.0 Total Bilirubin 1.0 AST 130 H ALT 23 Alkaline Phosphatase 152 H Total Protein 7.0 Albumin 3.6 06/29/25 10:10 WBC RBC Hgb Hct MCV MCH MCHC RDW Plt Count MPV Immature Gran % (Auto) Neut % (Auto) Lymph % (Auto) [place] % (Auto) Eos % (Auto) Baso % (Auto) Lymph # (Auto) [place] # (Auto) Eos # (Auto) Baso # (Auto) Abs Immat Gran (auto) Absolute Neuts (auto) Absolute Nucleated RBC Nucleated RBC % APTT 67.6 H Sodium Potassium Chloride Carbon Dioxide Anion Gap BUN Creatinine Estim Creat Clear Calc Estimated GFR Glucose Calcium Total Bilirubin AST ALT Alkaline Phosphatase Total Protein Albumin Quality VTE Prophylaxis VTE prophylaxis: mechanical ordered If No VTE Prophylaxis Answer both mechanical and pharmacologic: Reason no pharmacologic proph: medical contraindication (On heparin drip) Hospitalist MIPS Advance Care Plan I have confirmed that the patient's Advanced Care Plan is present, code status is documented, or surrogate decision maker is listed in patient medical record.: Yes Medication Reconciliation I have utilized all available resources to obtain, update and review the patients current medications (includes all prescriptions, OTC, herbals, cannabis, and nutritional supplements).: Yes
--- NOTE | 2025-06-29 15:27 | P.PCNCC_ITS ---
Cardiac Cath Procedure Note Date of procedure:: 06/29/25 Performing physician:: CATHETERIZATION LABORATORY REPORT Procedure Date: 06/29/2025 Referring Physician: Dr. Christie Anesthesia: Versed and Fentanyl were ordered and given in my presence at 1514, procedure ended at 1524. Supervision of nurse, Bev Atwood monitored moderate sedation with 1mg Versed and 25mcg Fentanyl was provided for 10 minutes. Pre-op Diagnosis: Non ST-elevation NC Post-op Diagnosis: Non ST elevation NC Procedure(s): Left heart catheterization with coronary angiography Access Site: Right radial artery Brief History and Clinical Indications: All risks, benefits and alternatives to left heart catheterization with or without percutaneous coronary intervention was discussed at length with the patient. Risk of complications including but not limited to bleeding, infection, arrhythmia, stroke, worsening kidney function, blood loss, groin hematoma, limb loss, emergency coronary artery bypass grafting, and even were discussed with the patient and all questions were answered. The patient understood and wished to proceed. Time out called, patient name, date of , medical record number, allergies, procedure performed, identify Metal Flooring Installer, patient and staff member concurred with accurate data, procedure carried on. Findings: LEFT HEART CATHETERIZATION FINDINGS: 1. Left main: The left main coronary artery is widely patent without any significant obstructive disease. 2. Left anterior descending: The LAD and the diagonal branches have mild luminal irregularities without any significant obstructive angiographic disease. 3. Left circumflex: The left circumflex artery and the main marginal branches have mild luminal irregularities without any significant obstructive angiographic disease. 4. Right coronary artery: The RCA has is a large dominant vessel with diffuse 10% stenosis. 5. Left ventricle: A. End-diastolic pressure 12 mmHg. B. LV gram deferred. C. Mild gradient (<20mmHg) across aortic valve on catheter pullback. 6. Opening AO pressure 82/45 and closing AO pressure 119/68 Description of Procedure: Informed consent signed and placed in the chart. Patient transferred to landscaping and groundskeeping laborer room. Prepped and draped in usual sterile fashion. 2% lidocaine injected subcutaneously in right wrist area. 22-gauge venipuncture catheter used to access the right radial artery with the Seldinger technique. 6-FR slender sheath placed in right radial artery. Nitroglycerin 200mcg, Verapamil 2.5mg, and Heparin 5000U was given intraarterial through the sheath. J wire advanced under fluoroscopy. 5F TIG diagnostic catheter engaged Left Main Coronary Artery and Right Coronary Artery. It was then used to cross the aortic valve to obtain LVEDP and aortic valve gradient. Multiple orthogonal angiogram obtained and reviewed Hemostasis was achieved by application of TR band. Assessment: Nonobstructive CAD Post Operative Condition: Stable No significant blood loss Disposition: Floor Plan: The above findings were discussed with the referring physician. Continue aggressive medical therapy and risk factor modification. Luigi Piper Interventional Cardiology
[2025-06-29] MEDS: DOCUSATE SODIUM 100 MG CAPSULE PO (18:42)
[2025-06-29 21:57] LABS: Partial Thromboplastin Time 31.3 Seconds (22.3-36.8)
[2025-06-29 22:53] LABS: Add Urine Microscopic? YES; Appearance Urine Cloudy (Clear); Glucose Urine UA 3+ mg/dL (Negative); Leukocyte Esterase Ur 2+ LEU/UL (Negative); Nitrate Urine Positive (Negative); Non Pathogenic Casts 0-2; Specific Grav Ur 1.041 (1.001-1.035)
[2025-06-29] MEDS: OLANZapine 10 MG, WATER, STERILE FOR INJECTION 2.1 ML IM (23:58)
[2025-06-30] VITALS (17 sets, daily range): BP systolic 90–146; BP diastolic 47–70; PULSE 69–121; RESP 16–20; TEMP 36–36.8; O2SAT 96–100; BMI 18.1
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
--- NOTE | 2025-06-30 00:39 | ECG_ITS ---
Test Date: 2025-06-30 00:46:44 Measurements Intervals [place] Rate: 81 P: 83 [place]: 172 QRS: -25 QRSD: 152 T: 168 QT: 437 QTc: 510 Interpretive Statements SINUS RHYTHM WITH OCCASIONAL SUPRAVENTRICULAR PREMATURE COMPLEXES POSSIBLE LEFT ATRIAL ENLARGEMENT LEFT BUNDLE BRANCH BLOCK BASELINE ARTIFACT- I, II, III, V4-V5 ABNORMAL ECG Compared to ECG 06/28/2025 09:39:01 Ectopic atrial rhythm no longer present Electronically Signed On 06-30-2025 05:41:21 CDT by Jim Christie D.O.
--- NOTE | 2025-06-30 01:01 | PC.NURSE ---
patient complained of chest pain. Gisele Reynolds notified. EKG obtained. Patient no longer having chest pain. EKG reported to Carly Reynolds. Patient's son still here and aware of EKG. Patient calmed down and resting per bed with alarm on and call light within reach.
[2025-06-30 05:02] LABS: Hematocrit 43.0 % (37.0-47.0); Hemoglobin 14.4 g/dL (12.0-15.0); Immature Granulocyte Percent A 0.3 % (0-0.5); Lymphocytes Absolute Auto 2.04 K/mm3 (0.9-3.2); Mean Corpuscular HGB Conc 33.5 g/dl (32-36); Mean Corpuscular Hemoglobin 30.3 pg (26-34); Mean Corpuscular Volume 90.5 fl (80-100); Nucleated Red Blood Cells Absolute Auto 0.000 K/mm3 (0.0-0.012); Nucleated Red Blood Cells Perc 0.0 % (0.0-0.2); Platelet Count Result 176 k/mm3 (150-375); Red Blood Count 4.75 M/mm3 (4.2-5.4); White Blood Count 7.3 K/mm3 (4.5-10.0)
[2025-06-30 05:11] LABS: Alanine Aminotransferase 23 U/L (6-35); Albumin Level 3.7 g/dL (3.5-5.1); Alkaline Phosphatase 144 U/L (38-126); Anion Gap 7 mmol/L (4-12); Aspartate Amino Transferase 37 U/L (14-36); Bilirubin,Total 0.8 mg/dL (0.2-1.3); Blood Urea Nitrogen 15 mg/dL (7-17); Calcium 9.1 mg/dL (8.4-10.2); Carbon Dioxide 24 mmol/L (22-30); Chloride 103 mmol/L (98-107); Estimated CRCL calculation 34 ml/min; Estimated Glomerular Filt Rate > 60; Glucose 110 mg/dL (65-110); Potassium 3.5 mmol/L (3.4-5.0); Sodium 134 mmol/L (137-145); Total Protein 7.1 g/dL (6.3-8.2)
--- NOTE | 2025-06-30 07:40 | PM.PNCARD ---
Progress Note: A&P Assessment and Plan (1) NSTEMI (non-ST elevated myocardial infarction): Code(s): I21.4 - Non-ST elevation (NSTEMI) myocardial infarction Status: Acute Assessment and Plan: Due to [place]. On aspirin daily, on heparin drip, on Atorvastatin 80 mg daily and on Metoprolol Tartate 12.5 mg BID. Troponin peaked at 15.9. LHC on 06/29/[address] Piper shows RCA 10% stenosis and mild luminal irregularities. Stopped Heparin drip. Start Plavix 75 mg daily. (2) LBBB (left bundle branch block): Code(s): I44.7 - Left bundle-branch block, unspecified Status: Acute (3) Systolic dysfunction: Code(s): I51.9 - Heart disease, unspecified Status: Acute Assessment and Plan: Severe. Appears euvolemic. 06/27/25 Echo: EF 15-20%, severe LVE, mild LVH, grade I diastolic dysfunction (E/e' 9), mild ([place] 1.6 cm2 with DI 0.49), severe MAC, mod MV calcifications, trace TR. On Metoprolol, Entresto 24-26 mg BID. Start Jardiance [address] [facility] as above. Discussed Life vest to prevent sudden cardiac arrest with patient and patient's daughter. Will order it and see if she would be OK wearing it. Patient is DNR status but she wants to see what it is. After life vest whether she decides on wearing it or not, she may d/c home from cardiology standpoint and f/u with me in 1-2 weeks. Subjective Date/time seen: 06/30/25 07:40 Interval history: Denies any more chest pains. Denies sob. Exam Const: General: cooperative, healthy appearing and comfortable Orientation/consciousness: oriented to person, oriented to place and oriented to time Resp: Auscultation: clear to auscultation bilaterally, no crackles, no rales, no rhonchi and no wheezes Cardio: Rate: regular rate Rhythm: regular rhythm Heart sounds: no murmurs Peripheral pulses: dorsalis pedis present Neuro: General: oriented to person, oriented to place and oriented to time Extrem: Right lower extremity: no edema Left lower extremity: no edema Objective Data Vital Signs Vital Signs: Vital Signs - 24 hr 06/29/25 08:00 06/29/25 08:00 06/29/25 08:27 Temperature 97.8 F Pulse Rate 73 75 77 Pulse Rate [Bilateral Pedal (Dorsalis Pedis)] Pulse Rate [Right Radial Palpation] Respiratory Rate 16 Blood Pressure 124/68 Pulse Oximetry 96 Oxygen Delivery 06/29/25 10:00 06/29/25 11:54 06/29/25 12:00 Temperature 97.8 F Pulse Rate 76 79 76 Pulse Rate [Bilateral Pedal (Dorsalis Pedis)] Pulse Rate [Right Radial Palpation] Respiratory Rate 20 Blood Pressure 102/63 Pulse Oximetry 94 Oxygen Delivery 06/29/25 14:00 06/29/25 15:45 06/29/25 15:45 Temperature Pulse Rate 79 85 Pulse Rate [Bilateral Pedal (Dorsalis Pedis)] 83 Pulse Rate [Right Radial Palpation] Respiratory Rate 16 Blood Pressure 105/74 Pulse Oximetry 98 Oxygen Delivery Room Air 06/29/25 16:00 06/29/25 16:01 06/29/25 16:15 Temperature Pulse Rate 83 Pulse Rate [Bilateral Pedal (Dorsalis Pedis)] 85 84 Pulse Rate [Right Radial Palpation] Respiratory Rate 15 Blood Pressure 119/66 Pulse Oximetry 97 Oxygen Delivery Room Air 06/29/25 16:15 06/29/25 16:30 06/29/25 16:30 Temperature Pulse Rate 84 82 Pulse Rate [Bilateral Pedal (Dorsalis Pedis)] Pulse Rate [Right Radial Palpation] 82 Respiratory Rate 16 16 Blood Pressure 91/51 L 117/59 L Pulse Oximetry 97 96 Oxygen Delivery Room Air Room Air 06/29/25 16:45 06/29/25 16:45 06/29/25 17:00 Temperature Pulse Rate 80 85 Pulse Rate [Bilateral Pedal (Dorsalis Pedis)] Pulse Rate [Right Radial Palpation] 80 Respiratory Rate 20 14 Blood Pressure 124/68 119/77 Pulse Oximetry 96 96 Oxygen Delivery Room Air Room Air 06/29/25 17:00 06/29/25 17:15 06/29/25 17:15 Temperature Pulse Rate 98 Pulse Rate [Bilateral Pedal (Dorsalis Pedis)] Pulse Rate [Right Radial Palpation] 85 97 Respiratory Rate 15 Blood Pressure 134/78 Pulse Oximetry 98 Oxygen Delivery Room Air 06/29/25 17:30 06/29/25 17:30 06/29/25 17:45 Temperature Pulse Rate 90 Pulse Rate [Bilateral Pedal (Dorsalis Pedis)] Pulse Rate [Right Radial Palpation] 90 88 Respiratory Rate 16 Blood Pressure 124/72 Pulse Oximetry 98 Oxygen Delivery Room Air 06/29/25 17:45 06/29/25 18:00 06/29/25 18:00 Temperature Pulse Rate 88 86 Pulse Rate [Bilateral Pedal (Dorsalis Pedis)] Pulse Rate [Right Radial Palpation] 86 Respiratory Rate 16 17 Blood Pressure 114/82 101/59 L Pulse Oximetry 98 96 Oxygen Delivery Room Air Room Air 06/29/25 18:15 06/29/25 18:15 06/29/25 18:30 Temperature Pulse Rate 93 91 Pulse Rate [Bilateral Pedal (Dorsalis Pedis)] Pulse Rate [Right Radial Palpation] 93 91 Respiratory Rate 16 18 Blood Pressure 98/52 L 114/47 L Pulse Oximetry 97 98 Oxygen Delivery Room Air 06/29/25 18:45 06/29/25 19:00 06/29/25 19:00 Temperature Pulse Rate 87 87 Pulse Rate [Bilateral Pedal (Dorsalis Pedis)] Pulse Rate [Right Radial Palpation] 87 87 Respiratory Rate 18 15 Blood Pressure 94/45 L 104/53 L Pulse Oximetry 98 97 Oxygen Delivery Room Air 06/29/25 19:15 06/29/25 19:15 06/29/25 19:30 Temperature Pulse Rate 81 Pulse Rate [Bilateral Pedal (Dorsalis Pedis)] Pulse Rate [Right Radial Palpation] 81 86 Respiratory Rate 16 Blood Pressure 98/57 L Pulse Oximetry 96 Oxygen Delivery Room Air 06/29/25 19:30 06/29/25 19:33 06/29/25 19:52 Temperature 97.8 F Pulse Rate 86 85 Pulse Rate [Bilateral Pedal (Dorsalis Pedis)] Pulse Rate [Right Radial Palpation] Respiratory Rate 16 18 Blood Pressure 107/54 L 116/46 L Pulse Oximetry 98 98 100 Oxygen Delivery Room Air Room Air 06/29/25 20:00 06/29/25 20:25 06/29/25 20:30 Temperature Pulse Rate 86 103 H Pulse Rate [Bilateral Pedal (Dorsalis Pedis)] Pulse Rate [Right Radial Palpation] 86 Respiratory Rate Blood Pressure Pulse Oximetry Oxygen Delivery 06/29/25 21:03 06/29/25 21:30 06/29/25 22:31 Temperature Pulse Rate 84 77 Pulse Rate [Bilateral Pedal (Dorsalis Pedis)] Pulse Rate [Right Radial Palpation] 86 Respiratory Rate Blood Pressure 98/60 L Pulse Oximetry Oxygen Delivery 06/30/25 00:00 06/30/25 00:00 06/30/25 00:00 Temperature 98.1 F Pulse Rate 85 102 H Pulse Rate [Bilateral Pedal (Dorsalis Pedis)] Pulse Rate [Right Radial Palpation] Respiratory Rate 20 Blood Pressure 144/59 H Pulse Oximetry 98 96 Oxygen Delivery Room Air 06/30/25 02:00 06/30/25 04:00 06/30/25 04:00 Temperature 98.3 F Pulse Rate 76 80 Pulse Rate [Bilateral Pedal (Dorsalis Pedis)] Pulse Rate [Right Radial Palpation] Respiratory Rate 20 Blood Pressure 146/70 H Pulse Oximetry 97 Oxygen Delivery Room Air 06/30/25 04:00 Temperature Pulse Rate 86 Pulse Rate [Bilateral Pedal (Dorsalis Pedis)] Pulse Rate [Right Radial Palpation] Respiratory Rate Blood Pressure Pulse Oximetry Oxygen Delivery Intake/Output Intake/Output: Intake & Output 06/27/25 06/28/25 06/29/25 06/30/25 23:59 23:59 23:59 23:59 Intake Total 1765.4 1028 326.9 Output Total 200 700 450 500 Balance 1565.4 328 -123.1 -500 Meds/Results Medications: Active Medications Generic Name Dose Route Start Last Admin Trade Name Freq PRN Reason Stop Dose Admin Al Hydrox/Mg Hydrox/Simethicone 30 ml 06/27/25 14:25 Mag Hydrox/Al Hydrox/Simeth 30 Ml Udc PO QID PRN Dyspepsia Artificial Tears 1 drop 06/27/25 14:49 Artificial Tears Ophth Soln 15 Ml Bottle EACH EYE QID PRN Dry Eye(s) Aspirin 81 mg 06/28/25 09:00 06/29/25 08:27 Aspirin 81 Mg Enteric Tablet PO 81 mg QAM MAIRA Administration Atorvastatin Calcium 80 mg 06/28/25 09:00 06/29/25 08:27 Atorvastatin 40 Mg Tablet PO 80 mg DAILY MAIRA Administration Bisacodyl 5 mg 06/27/25 14:25 06/28/25 09:47 Bisacodyl 5 Mg Tablet Ec PO 5 mg DAILY PRN Administration Constipation Clopidogrel Bisulfate 75 mg 06/30/25 09:00 Clopidogrel Bisulfate 75 Mg Tablet PO QAM MAIRA Docusate Sodium 100 mg 06/27/25 17:00 06/29/25 18:42 Docusate Sodium 100 Mg Capsule PO 100 mg BID MAIRA Administration Empagliflozin 10 mg 06/29/25 09:00 06/29/25 08:33 Empagliflozin 10 Mg Tablet PO 10 mg DAILY MAIRA Administration Metoprolol Tartrate 12.5 mg 06/27/25 21:00 06/29/25 20:25 Metoprolol Tartrate 12.5 Mg Tablet PO 12.5 mg Q12HR MAIRA Administration Morphine Sulfate 2 mg 06/27/25 14:37 Morphine Sulfate (*Crx) 4 Mg/Ml Inj IV PUSH Q4H PRN Pain Rated 7-10 Naloxone HCl 0.1 mg 06/27/25 14:25 Naloxone Hcl 0.4 Mg/Ml Vial IV PUSH Q2M PRN Opiate Reversal Ondansetron HCl 4 mg 06/27/25 14:25 Ondansetron Inj 4 Mg/2 Ml Vial IV PUSH Q6H PRN Nausea And Vomiting Sacubitril/Valsartan 1 tab 06/28/25 09:00 06/29/25 20:25 Sacubitril/Valsartan 24-26 Mg Tablet PO 1 tab Q12HR MAIRA Administration Radiology Results: ITS Impressions Head CT 06/27/25 08:23 IMPRESSION: 1. No acute intracranial findings. Chest/Abdomen/Pelvis CT 06/27/25 10:17 IMPRESSION: CHEST- 1. Small pericardial effusion. 2. Emphysema. Recommend annual screening CT chest. 3. Otherwise no acute abnormality. ABDOMEN/PELVIS- 1. No acute findings. Chest X-Ray 06/27/25 10:25 IMPRESSION: 1. No acute cardiopulmonary findings given portable technique. Labs Labs: Laboratory Results - last 24 hr 06/29/25 06/29/25 06/29/25 08:27 10:10 21:42 WBC 8.7 RBC 4.76 Hgb 14.2 Hct 42.5 MCV 89.3 MCH 29.8 MCHC 33.4 RDW 12.7 Plt Count 201 MPV 10.7 H Immature Gran % (Auto) 0.2 Neut % (Auto) 56.6 Lymph % (Auto) 30.7 [place] % (Auto) 8.9 H Eos % (Auto) 2.7 Baso % (Auto) 0.9 Lymph # (Auto) 2.66 [place] # (Auto) 0.8 H Eos # (Auto) 0.2 Baso # (Auto) 0.1 Abs Immat Gran (auto) 0.02 Absolute Neuts (auto) 4.9 Absolute Nucleated RBC 0.000 Nucleated RBC % 0.0 APTT 151.4 H 67.6 H 31.3 Sodium 131 L Potassium 3.7 Chloride 102 Carbon Dioxide 20 L Anion Gap 9 BUN 13 Creatinine 0.68 L Estim Creat Clear Calc 43 Estimated GFR > 60 Glucose 110 Calcium 9.0 Total Bilirubin 1.0 AST 130 H ALT 23 Alkaline Phosphatase 152 H Total Protein 7.0 Albumin 3.6 Urine Color Urine Appearance Urine pH Ur Specific [place] Urine Protein Urine Glucose (UA) Urine Ketones Ur Blood (Man) Urine Nitrate Urine Bilirubin Urine Urobilinogen Leukocyte Esterase Rfl Urine RBC Urine WBC Ur Squamous Epith Cells Urine Bacteria Urine Casts 06/29/25 06/30/25 22:21 04:23 WBC 7.3 RBC 4.75 Hgb 14.4 Hct 43.0 MCV 90.5 MCH 30.3 MCHC 33.5 RDW 12.9 Plt Count 176 MPV 11.3 H Immature Gran % (Auto) 0.3 Neut % (Auto) 59.5 Lymph % (Auto) 27.8 [place] % (Auto) 9.7 H Eos % (Auto) 2.0 Baso % (Auto) 0.7 Lymph # (Auto) 2.04 [place] # (Auto) 0.7 H Eos # (Auto) 0.2 Baso # (Auto) 0.1 Abs Immat Gran (auto) 0.02 Absolute Neuts (auto) 4.4 Absolute Nucleated RBC 0.000 Nucleated RBC % 0.0 APTT Sodium 134 L Potassium 3.5 Chloride 103 Carbon Dioxide 24 Anion Gap 7 BUN 15 Creatinine 0.84 Estim Creat Clear Calc 34 Estimated GFR > 60 Glucose 110 Calcium 9.1 Total Bilirubin 0.8 AST 37 H ALT 23 Alkaline Phosphatase 144 H Total Protein 7.1 Albumin 3.7 Urine Color Yellow Urine Appearance Cloudy H Urine pH 8.0 Ur Specific [place] 1.041 H Urine Protein Trace Urine Glucose (UA) 3+ H Urine Ketones Negative Ur Blood (Man) 1+ H Urine Nitrate Positive H Urine Bilirubin Negative Urine Urobilinogen 1.0 Leukocyte Esterase Rfl 2+ H Urine RBC 0-2 Urine WBC >100 H Ur Squamous Epith Cells None seen Urine Bacteria 4+ Urine Casts 0-2
[2025-06-30] MEDS: EMPAGLIFLOZIN 10 MG TABLET PO (08:42)
[2025-06-30] MEDS: CLOPIDOGREL BISULFATE 75 MG TABLET PO (08:43)
[2025-06-30] MEDS: ASPIRIN 81 MG ENTERIC TABLET PO (08:43)
[2025-06-30] MEDS: SACUBITRIL/VALSARTAN 24-26 MG TABLET 1 TAB PO ×2 (08:43→20:57)
[2025-06-30] MEDS: ATORVASTATIN 40 MG TABLET 80 MG PO (08:43)
[2025-06-30] MEDS: METOPROLOL TARTRATE 12.5 MG TABLET PO ×2 (08:43→20:56)
[2025-06-30] MEDS: DOCUSATE SODIUM 100 MG CAPSULE PO (08:43)
--- NOTE | 2025-06-30 14:46 | P.PNIM_ITS ---
Progress Note: A&P Assessment and Plan (1) NSTEMI (non-ST elevated myocardial infarction): Code(s): I21.4 - Non-ST elevation (NSTEMI) myocardial infarction Status: Acute Assessment and Plan: EKG: LBBB, repeat continues to show LBBB Troponins highly uptrending x3 0.06 > 3.57 > 15.9 > 11 S/p Cardiac cath and showed [place] Continue Aspirin, Plavix, Lipitor and Metoprolol Cardiology following (2) Heart failure with reduced ejection fraction: Code(s): I50.20 - Unspecified systolic (congestive) heart failure Status: Acute Assessment and Plan: Echo ordered-EF 15-20% severe LVE, mild LVH, grade I diastolic dysfunction, mild , severe MAC, mod MV calcifications, trace TR. Started on Entresto, Jardiance, metoprolol tartrate b.i.d. patient and family declines [facility] Cardiology following (3) History of gastroesophageal reflux (GERD): Code(s): Z87.19 - Personal history of other diseases of the digestive system Status: Acute Assessment and Plan: GI prophylaxis (4) Depression: Qualifiers: Depression Type: unspecified Qualified Code(s): F32.A - Depression, unspecified Code(s): F32.9 - Major depressive disorder, single episode, unspecified Status: Acute Assessment and Plan: On antidepressant that starts with Bu per patient- likely bupropion, will need confirmation (5) Dementia: Code(s): F03.90 - Unspecified dementia, unspecified severity, without behavioral disturbance, psychotic disturbance, mood disturbance, and anxiety Status: Acute Assessment and Plan: At baseline per sister, this has been progressing for several months Plan: Reorientation when needed Plan DVT prophylaxis: currently on Sq Lovenox Subjective Date/time seen: 06/30/25 14:46 Interval history: Comfortable at bedside Daughter noted patient not sleeping well at night and having agitation Patient and daughters declined [facility] Review of Systems Review of Systems: AAOx2 - baseline per family Constitutional: Constitutional: Reports as per HPI Eyes: Eyes: Reports as per HPI Cardiovascular: Cardiovascular: Reports as per HPI Respiratory: Respiratory: Reports as per HPI Gastrointestinal: Gastrointestinal: Reports as per HPI Musculoskeletal: Musculoskeletal: Reports as per HPI Integumentary/Breasts: Skin/Breast: Reports as per HPI Neurologic: Reports system reviewed and no additional complaints, except as documented and Reports as per HPI Psychiatric: Psychiatric: Reports as per HPI Exam Const: General: no acute distress HENMT: Face/Nose/Sinus: Normal nares present Mouth: Yes moist mucous membranes Eyes: General: appearance normal, both eyes and all related structures Sclera: sclerae normal Pupils: Equal, round and reactive pupils present EOM: EOMs intact bilaterally Neck: Neck: supple and no JVD Resp: Effort & Inspection: normal respiratory effort Auscultation: clear to auscultation bilaterally Cardio: Rate: regular rate Rhythm: regular rhythm GI: Auscultation: normal bowel sounds Neuro: Cranial nerves: Yes Equal, round and reactive pupils present Speech: normal speech Psych: Affect: Anxious affect present Objective Data Vital Signs Vital Signs: Vital Signs - 24 hr 06/29/25 15:45 06/29/25 15:45 06/29/25 16:00 Temperature Pulse Rate 85 Pulse Rate [Bilateral Pedal (Dorsalis Pedis)] 83 85 Pulse Rate [Right Radial Palpation] Respiratory Rate 16 Blood Pressure 105/74 Pulse Oximetry 98 Oxygen Delivery Room Air 06/29/25 16:01 06/29/25 16:15 06/29/25 16:15 Temperature Pulse Rate 83 84 Pulse Rate [Bilateral Pedal (Dorsalis Pedis)] 84 Pulse Rate [Right Radial Palpation] Respiratory Rate 15 16 Blood Pressure 119/66 91/51 L Pulse Oximetry 97 97 Oxygen Delivery Room Air Room Air 06/29/25 16:30 06/29/25 16:30 06/29/25 16:45 Temperature Pulse Rate 82 80 Pulse Rate [Bilateral Pedal (Dorsalis Pedis)] Pulse Rate [Right Radial Palpation] 82 Respiratory Rate 16 20 Blood Pressure 117/59 L 124/68 Pulse Oximetry 96 96 Oxygen Delivery Room Air Room Air 06/29/25 16:45 06/29/25 17:00 06/29/25 17:00 Temperature Pulse Rate 85 Pulse Rate [Bilateral Pedal (Dorsalis Pedis)] Pulse Rate [Right Radial Palpation] 80 85 Respiratory Rate 14 Blood Pressure 119/77 Pulse Oximetry 96 Oxygen Delivery Room Air 06/29/25 17:15 06/29/25 17:15 06/29/25 17:30 Temperature Pulse Rate 98 Pulse Rate [Bilateral Pedal (Dorsalis Pedis)] Pulse Rate [Right Radial Palpation] 97 90 Respiratory Rate 15 Blood Pressure 134/78 Pulse Oximetry 98 Oxygen Delivery Room Air 06/29/25 17:30 06/29/25 17:45 06/29/25 17:45 Temperature Pulse Rate 90 88 Pulse Rate [Bilateral Pedal (Dorsalis Pedis)] Pulse Rate [Right Radial Palpation] 88 Respiratory Rate 16 16 Blood Pressure 124/72 114/82 Pulse Oximetry 98 98 Oxygen Delivery Room Air Room Air 06/29/25 18:00 06/29/25 18:00 06/29/25 18:15 Temperature Pulse Rate 86 Pulse Rate [Bilateral Pedal (Dorsalis Pedis)] Pulse Rate [Right Radial Palpation] 86 93 Respiratory Rate 17 Blood Pressure 101/59 L Pulse Oximetry 96 Oxygen Delivery Room Air 06/29/25 18:15 06/29/25 18:30 06/29/25 18:45 Temperature Pulse Rate 93 91 87 Pulse Rate [Bilateral Pedal (Dorsalis Pedis)] Pulse Rate [Right Radial Palpation] 91 87 Respiratory Rate 16 18 18 Blood Pressure 98/52 L 114/47 L 94/45 L Pulse Oximetry 97 98 98 Oxygen Delivery Room Air 06/29/25 19:00 06/29/25 19:00 06/29/25 19:15 Temperature Pulse Rate 87 Pulse Rate [Bilateral Pedal (Dorsalis Pedis)] Pulse Rate [Right Radial Palpation] 87 81 Respiratory Rate 15 Blood Pressure 104/53 L Pulse Oximetry 97 Oxygen Delivery Room Air 06/29/25 19:15 06/29/25 19:30 06/29/25 19:30 Temperature Pulse Rate 81 86 Pulse Rate [Bilateral Pedal (Dorsalis Pedis)] Pulse Rate [Right Radial Palpation] 86 Respiratory Rate 16 16 Blood Pressure 98/57 L 107/54 L Pulse Oximetry 96 98 Oxygen Delivery Room Air Room Air 06/29/25 19:33 06/29/25 19:52 06/29/25 20:00 Temperature 97.8 F Pulse Rate 85 86 Pulse Rate [Bilateral Pedal (Dorsalis Pedis)] Pulse Rate [Right Radial Palpation] Respiratory Rate 18 Blood Pressure 116/46 L Pulse Oximetry 98 100 Oxygen Delivery Room Air 06/29/25 20:25 06/29/25 20:30 06/29/25 21:03 Temperature Pulse Rate 103 H 84 Pulse Rate [Bilateral Pedal (Dorsalis Pedis)] Pulse Rate [Right Radial Palpation] 86 Respiratory Rate Blood Pressure 98/60 L Pulse Oximetry Oxygen Delivery 06/29/25 21:30 06/29/25 22:31 06/30/25 00:00 Temperature Pulse Rate 77 Pulse Rate [Bilateral Pedal (Dorsalis Pedis)] Pulse Rate [Right Radial Palpation] 86 Respiratory Rate Blood Pressure Pulse Oximetry 98 Oxygen Delivery Room Air 06/30/25 00:00 06/30/25 00:00 06/30/25 02:00 Temperature 98.1 F Pulse Rate 85 102 H 76 Pulse Rate [Bilateral Pedal (Dorsalis Pedis)] Pulse Rate [Right Radial Palpation] Respiratory Rate 20 Blood Pressure 144/59 H Pulse Oximetry 96 Oxygen Delivery 06/30/25 04:00 06/30/25 04:00 06/30/25 04:00 Temperature 98.3 F Pulse Rate 80 86 Pulse Rate [Bilateral Pedal (Dorsalis Pedis)] Pulse Rate [Right Radial Palpation] Respiratory Rate 20 Blood Pressure 146/70 H Pulse Oximetry 97 Oxygen Delivery Room Air 06/30/25 06:00 06/30/25 07:50 06/30/25 08:00 Temperature 97.5 F L Pulse Rate 82 81 Pulse Rate [Bilateral Pedal (Dorsalis Pedis)] Pulse Rate [Right Radial Palpation] Respiratory Rate 18 Blood Pressure 103/50 L Pulse Oximetry 100 Oxygen Delivery Room Air 06/30/25 08:00 06/30/25 08:43 06/30/25 10:00 Temperature Pulse Rate 84 86 121 H Pulse Rate [Bilateral Pedal (Dorsalis Pedis)] Pulse Rate [Right Radial Palpation] Respiratory Rate Blood Pressure Pulse Oximetry Oxygen Delivery 06/30/25 11:36 06/30/25 12:00 06/30/25 12:00 Temperature 97.4 F L Pulse Rate 69 74 Pulse Rate [Bilateral Pedal (Dorsalis Pedis)] Pulse Rate [Right Radial Palpation] Respiratory Rate 20 Blood Pressure 90/47 L Pulse Oximetry 97 Oxygen Delivery Room Air 06/30/25 13:20 06/30/25 13:38 06/30/25 14:00 Temperature Pulse Rate 90 Pulse Rate [Bilateral Pedal (Dorsalis Pedis)] Pulse Rate [Right Radial Palpation] Respiratory Rate Blood Pressure Pulse Oximetry Oxygen Delivery Room Air Room Air Intake/Output Intake/Output: Intake & Output 10/1106/28/25 06/29/25 06/30/25 23:59 23:59 23:59 23:59 Intake Total 1765.4 1028 326.9 480 Output Total 200 700 450 500 Balance 1565.4 328 -123.1 -20 Meds/Results Medications: Active Medications Generic Name Dose Route Start Last Admin Trade Name Freq PRN Reason Stop Dose Admin Al Hydrox/Mg Hydrox/Simethicone 30 ml 06/27/25 14:25 Mag Hydrox/Al Hydrox/Simeth 30 Ml Udc PO QID PRN Dyspepsia Artificial Tears 1 drop 06/27/25 14:49 Artificial Tears Ophth Soln 15 Ml Bottle EACH EYE QID PRN Dry Eye(s) Aspirin 81 mg 06/28/25 09:00 06/30/25 08:43 Aspirin 81 Mg Enteric Tablet PO 81 mg QAM MAIRA Administration Atorvastatin Calcium 80 mg 06/28/25 09:00 06/30/25 08:43 Atorvastatin 40 Mg Tablet PO 80 mg DAILY MAIRA Administration Bisacodyl 5 mg 06/27/25 14:25 06/28/25 09:47 Bisacodyl 5 Mg Tablet Ec PO 5 mg DAILY PRN Administration Constipation Clopidogrel Bisulfate 75 mg 06/30/25 09:00 06/30/25 08:43 Clopidogrel Bisulfate 75 Mg Tablet PO 75 mg QAM MAIRA Administration Docusate Sodium 100 mg 06/27/25 17:00 06/30/25 08:43 Docusate Sodium 100 Mg Capsule PO 100 mg BID MAIRA Administration Empagliflozin 10 mg 06/29/25 09:00 06/30/25 08:42 Empagliflozin 10 Mg Tablet PO 10 mg DAILY MAIRA Administration Metoprolol Tartrate 12.5 mg 06/27/25 21:00 06/30/25 08:43 Metoprolol Tartrate 12.5 Mg Tablet PO 12.5 mg Q12HR MAIRA Administration Morphine Sulfate 2 mg 06/27/25 14:37 Morphine Sulfate (*Crx) 4 Mg/Ml Inj IV PUSH Q4H PRN Pain Rated 7-10 Naloxone HCl 0.1 mg 06/27/25 14:25 Naloxone Hcl 0.4 Mg/Ml Vial IV PUSH Q2M PRN Opiate Reversal Ondansetron HCl 4 mg 06/27/25 14:25 Ondansetron Inj 4 Mg/2 Ml Vial IV PUSH Q6H PRN Nausea And Vomiting Sacubitril/Valsartan 1 tab 06/28/25 09:00 06/30/25 08:43 Sacubitril/Valsartan 24-26 Mg Tablet PO 1 tab Q12HR MAIRA Administration Radiology Results: ITS Impressions Head CT 06/27/25 08:23 IMPRESSION: 1. No acute intracranial findings. Chest/Abdomen/Pelvis CT 06/27/25 10:17 IMPRESSION: CHEST- 1. Small pericardial effusion. 2. Emphysema. Recommend annual screening CT chest. 3. Otherwise no acute abnormality. ABDOMEN/PELVIS- 1. No acute findings. Chest X-Ray 06/27/25 10:25 IMPRESSION: 1. No acute cardiopulmonary findings given portable technique. Labs Labs: Laboratory Results - last 24 hr 06/29/25 06/29/25 06/30/25 21:42 22:21 04:23 WBC 7.3 RBC 4.75 Hgb 14.4 Hct 43.0 MCV 90.5 MCH 30.3 MCHC 33.5 RDW 12.9 Plt Count 176 MPV 11.3 H Immature Gran % (Auto) 0.3 Neut % (Auto) 59.5 Lymph % (Auto) 27.8 [place] % (Auto) 9.7 H Eos % (Auto) 2.0 Baso % (Auto) 0.7 Lymph # (Auto) 2.04 [place] # (Auto) 0.7 H Eos # (Auto) 0.2 Baso # (Auto) 0.1 Abs Immat Gran (auto) 0.02 Absolute Neuts (auto) 4.4 Absolute Nucleated RBC 0.000 Nucleated RBC % 0.0 APTT 31.3 Sodium 134 L Potassium 3.5 Chloride 103 Carbon Dioxide 24 Anion Gap 7 BUN 15 Creatinine 0.84 Estim Creat Clear Calc 34 Estimated GFR > 60 Glucose 110 Calcium 9.1 Total Bilirubin 0.8 AST 37 H ALT 23 Alkaline Phosphatase 144 H Total Protein 7.1 Albumin 3.7 Urine Color Yellow Urine Appearance Cloudy H Urine pH 8.0 Ur Specific [place] 1.041 H Urine Protein Trace Urine Glucose (UA) 3+ H Urine Ketones Negative Ur Blood (Man) 1+ H Urine Nitrate Positive H Urine Bilirubin Negative Urine Urobilinogen 1.0 Leukocyte Esterase Rfl 2+ H Urine RBC 0-2 Urine WBC >100 H Ur Squamous Epith Cells None seen Urine Bacteria 4+ Urine Casts 0-2 Quality VTE Prophylaxis VTE prophylaxis: mechanical ordered
[2025-07-01] VITALS (11 sets, daily range): BP systolic 91–107; BP diastolic 43–51; PULSE 72–112; RESP 16–20; TEMP 36.4–36.6; O2SAT 95–98
[2025-07-01 04:25] LABS: Hematocrit 39.9 % (37.0-47.0); Hemoglobin 13.1 g/dL (12.0-15.0); Immature Granulocyte Percent A 0.4 % (0-0.5); Lymphocytes Absolute Auto 1.64 K/mm3 (0.9-3.2); Mean Corpuscular HGB Conc 32.8 g/dl (32-36); Mean Corpuscular Hemoglobin 30.0 pg (26-34); Mean Corpuscular Volume 91.3 fl (80-100); Nucleated Red Blood Cells Absolute Auto 0.000 K/mm3 (0.0-0.012); Nucleated Red Blood Cells Perc 0.0 % (0.0-0.2); Platelet Count Result 181 k/mm3 (150-375); Red Blood Count 4.37 M/mm3 (4.2-5.4); White Blood Count 9.2 K/mm3 (4.5-10.0)
[2025-07-01 04:46] LABS: Alanine Aminotransferase 20 U/L (6-35); Albumin Level 3.6 g/dL (3.5-5.1); Alkaline Phosphatase 144 U/L (38-126); Anion Gap 8 mmol/L (4-12); Aspartate Amino Transferase 37 U/L (14-36); Bilirubin,Total 0.9 mg/dL (0.2-1.3); Blood Urea Nitrogen 21 mg/dL (7-17); Calcium 9.1 mg/dL (8.4-10.2); Carbon Dioxide 21 mmol/L (22-30); Chloride 104 mmol/L (98-107); Estimated CRCL calculation 30 ml/min; Estimated Glomerular Filt Rate 56; Glucose 124 mg/dL (65-110); Magnesium 1.9 mg/dL (1.6-2.3); Potassium 3.8 mmol/L (3.4-5.0); Sodium 133 mmol/L (137-145); Total Protein 6.9 g/dL (6.3-8.2)
--- NOTE | 2025-07-01 07:13 | WPDCNPSYCH ---
Assessment and Plan Assessment and plan (1) Depression, major, recurrent, mild: Code(s): F33.0 - Major depressive disorder, recurrent, mild Status: Acute (2) Dementia: Code(s): F03.90 - Unspecified dementia, unspecified severity, without behavioral disturbance, psychotic disturbance, mood disturbance, and anxiety Status: Acute Plan Recommendations: -Continue quetiapine 25mg qHS -May utilize quetiapine 12.5mg BID PRN for breakthrough agitation -Resume home bupropion 300mg daily -Hold [employer] trazodone 50mg, as she is sleeping well with quetiapine HPI Data of Consult Date/Time: 07/01/25 07:13 Requesting Physician: Epi Wilson MD Primary Care Provider: Hermann Arrieta APRN Consult Narrative Narrative: Hannah Acosta is a 84 year old female admitted to the hospital on 06/27/2025 for NSTEMI. She has a psychiatric history of depression, which she is prescribed Wellbutrin 300mg daily for on an outpatient basis. She has a possible history of dementia, appears to be an assumed diagnosis as has noted a change in her behavior over the past several months to year. During this admission, she reportedly has been more agitated at bedtime and throughout the night, not sleeping well. During exam this morning, the patient is drowsy although A/O x 4, answers questions appropriately. Reports her depression symptoms are fine. Declines feeling down, sad, hopeless or helpless. No suicidal or homicidal ideation. No agitation noted during exam this morning. However, per nursing reports, she had a couple episodes last night of combative behavior while getting up to use bedside commode, although was generally re-directable. She was started on quetiapine 25mg last night for sleep, aside from getting up to use the restroom she reportedly slept well. Review of Systems Psychiatric: Psychiatric: Reports as per HPI [facility] Past Medical History Medical History (Updated 07/01/25 @ 07:20 by Macey Mcqueen APRN) Heart failure with reduced ejection fraction Constipation Abdominal pain History of vaginal delivery x 3 Hx of breast cancer Depression Ankle fracture Rt x2. Arthritis History of melena GERD (gastroesophageal reflux disease) IBS (irritable bowel syndrome) Ulcer Hx of hemorrhoids COPD (chronic obstructive pulmonary disease) LBBB (left bundle branch block) Peripheral neuropathy Cataracts, bilateral History of COPD History of peripheral neuropathy History of gastroesophageal reflux (GERD) History of depression Surgical History Surgical History History of bilateral knee arthroplasty History of hemorrhoidectomy H/O cataract removal with insertion of prosthetic lens History of mastectomy Family History Family History Sibling Family history of diabetes mellitus in first degree relative Family history of malignant neoplasm of breast in first degree relative Patient's sister is in good health Father No family history of malignant neoplasm Family history of lung cancer Mother Patient's mother is Family history of Alzheimer's disease Family history of malignant melanoma Social History Social History Social History: Caffeine-coffee Smoking packs per day: 0.25 Smoking cigarettes per day: 5.0 Years smoked: 40 Smoking pack-years: 10.00 Smoking status: Former smoker Tobacco type: cigarettes Second hand tobacco smoke exposure: No Smoking end date: 09/17/98 Alcohol intake: never Substance use: never Substance use type: does not use Do You Feel Safe in your Home?: Yes Lack of Transportation: No Lack of Food: Never True Current Housing: I Have Housing Concerned About Future Housing: No Difficulty Paying Gas/Electric Bills: No Difficulty Paying for Meds: No Currently Unemployed: No Education: High School Diploma/GED Difficulty w/ Childcare or Family Care: No Living arrangements: with family Spiritual care concerns: No Meds Home Medications and Allergies Home Medications ?Medication ?Instructions ?Recorded ?Confirmed ?Type bupropion HCl 300 mg 24 hr tablet, 300 mg PO QAM #90 tabs 07/18/24 06/27/25 Rx extended release trazodone 50 mg tablet 50 mg PO QHS PRN sleep #30 tabs 07/18/24 06/27/25 Rx gabapentin 300 mg capsule See Rx Instructions PO DAILY #120 01/15/25 06/27/25 Rx caps clindamycin phosphate 1 % topical 1 applic topical DAILY 06/27/25 06/27/25 History swab doxycycline hyclate 20 mg tablet 20 mg PO Q24H 06/27/25 06/27/25 History polyethylene glycol 3350 17 17 g PO DAILY 06/27/25 06/27/25 History gram/dose oral powder (Miralax) triamcinolone acetonide 0.1 % 1 applic topical TID PRN 06/27/25 06/27/25 History topical cream dermititis on face Allergies Allergy/AdvReac Type Severity Reaction Status Date / Time No Known Allergies Allergy Verified 06/27/25 16:05 Vital Signs Vital Signs - 24 hr 06/30/25 07:50 06/30/25 08:00 06/30/25 08:00 Temperature 97.5 F L Pulse Rate 81 84 Respiratory Rate 18 Blood Pressure 103/50 L Pulse Oximetry 100 Oxygen Delivery Room Air 06/30/25 08:43 06/30/25 10:00 06/30/25 11:36 Temperature 97.4 F L Pulse Rate 86 121 H 69 Respiratory Rate 20 Blood Pressure 90/47 L Pulse Oximetry 97 Oxygen Delivery 06/30/25 12:00 06/30/25 12:00 06/30/25 13:20 Temperature Pulse Rate 74 Respiratory Rate Blood Pressure Pulse Oximetry Oxygen Delivery Room Air Room Air 06/30/25 13:38 06/30/25 14:00 06/30/25 15:41 Temperature 98.0 F Pulse Rate 90 77 Respiratory Rate 16 Blood Pressure 101/56 L Pulse Oximetry 97 Oxygen Delivery Room Air 06/30/25 16:00 06/30/25 16:00 06/30/25 18:53 Temperature 96.8 F L Pulse Rate 87 88 Respiratory Rate 18 Blood Pressure 94/49 L Pulse Oximetry 97 Oxygen Delivery Room Air 06/30/25 20:00 06/30/25 20:56 06/30/25 22:12 Temperature Pulse Rate 94 91 91 Respiratory Rate Blood Pressure Pulse Oximetry Oxygen Delivery 07/01/25 00:00 07/01/25 04:00 07/01/25 04:00 Temperature 97.8 F Pulse Rate 100 83 86 Respiratory Rate 16 Blood Pressure 107/51 L Pulse Oximetry 95 Oxygen Delivery Exam Psych: Appearance: grossly normal Mental Status: mental status grossly normal Speech and movement: Other speech and movement exam findings present (Psych) (soft speech) Affect: normal affect Attitude: cooperative Thought process: Normal thought process present Thought content: Yes Normal thought content present Results Labs 07/01/25 03:56 07/01/25 03:56 Labs: Short CBC 07/01/25 Range/Units 03:56 WBC 9.2 (4.5-10.0) K/mm3 Hgb 13.1 (12.0-15.0) g/dL Hct 39.9 (37.0-47.0) % Plt Count 181 (150-375) k/mm3 BMP 07/01/25 03:56 Sodium 133 L Potassium 3.8 Chloride 104 Carbon Dioxide 21 L BUN 21 H Creatinine 0.95 Glucose 124 H Calcium 9.1 Liver Function 07/01/25 Range/Units 03:56 Total Bilirubin 0.9 (0.2-1.3) mg/dL AST 37 H (14-36) U/L ALT 20 (6-35) U/L Alkaline Phosphatase 144 H (38-126) U/L Albumin 3.6 (3.5-5.1) g/dL
--- NOTE | 2025-07-01 07:37 | PM.PNCARD ---
Progress Note: A&P Assessment and Plan (1) NSTEMI (non-ST elevated myocardial infarction): Code(s): I21.4 - Non-ST elevation (NSTEMI) myocardial infarction Status: Acute Assessment and Plan: Due to MINOCA. On aspirin daily, Plavix daily, and on Atorvastatin 80 mg daily and on Metoprolol Tartate 12.5 mg BID. Troponin peaked at 15.9. LHC on 06/29/[address] Piper shows RCA 10% stenosis and mild luminal irregularities. (2) LBBB (left bundle branch block): Code(s): I44.7 - Left bundle-branch block, unspecified Status: Acute (3) Systolic dysfunction: Code(s): I51.9 - Heart disease, unspecified Status: Acute Assessment and Plan: Severe. Appears euvolemic. 06/27/25 Echo: EF 15-20%, severe LVE, mild LVH, grade I diastolic dysfunction (E/e' 9), mild ([place] 1.6 cm2 with DI 0.49), severe MAC, mod MV calcifications, trace TR. On Metoprolol, Entresto 24-26 mg BID, and Jardiance 10 mg daily. Needs [facility] as above. Discussed Life vest to prevent sudden cardiac arrest with patient and patient's daughter, but they ultimately declined it. Will sign off, please call with any questions. Upon discharge, have her f/u with me in 2 weeks. Subjective Date/time seen: 07/01/25 07:37 Interval history: Denies any more chest pains. Denies sob. Exam Const: General: cooperative, healthy appearing and comfortable Orientation/consciousness: oriented to person, oriented to place and oriented to time Resp: Auscultation: clear to auscultation bilaterally, no crackles, no rales, no rhonchi and no wheezes Cardio: Rate: regular rate Rhythm: regular rhythm Heart sounds: no murmurs Peripheral pulses: dorsalis pedis present Neuro: General: oriented to person, oriented to place and oriented to time Extrem: Right lower extremity: no edema Left lower extremity: no edema Objective Data Vital Signs Vital Signs: Vital Signs - 24 hr 06/30/25 07:50 06/30/25 08:00 06/30/25 08:00 Temperature 97.5 F L Pulse Rate 81 84 Respiratory Rate 18 Blood Pressure 103/50 L Pulse Oximetry 100 Oxygen Delivery Room Air 06/30/25 08:43 06/30/25 10:00 06/30/25 11:36 Temperature 97.4 F L Pulse Rate 86 121 H 69 Respiratory Rate 20 Blood Pressure 90/47 L Pulse Oximetry 97 Oxygen Delivery 06/30/25 12:00 06/30/25 12:00 06/30/25 13:20 Temperature Pulse Rate 74 Respiratory Rate Blood Pressure Pulse Oximetry Oxygen Delivery Room Air Room Air 06/30/25 13:38 06/30/25 14:00 06/30/25 15:41 Temperature 98.0 F Pulse Rate 90 77 Respiratory Rate 16 Blood Pressure 101/56 L Pulse Oximetry 97 Oxygen Delivery Room Air 06/30/25 16:00 06/30/25 16:00 06/30/25 18:53 Temperature 96.8 F L Pulse Rate 87 88 Respiratory Rate 18 Blood Pressure 94/49 L Pulse Oximetry 97 Oxygen Delivery Room Air 06/30/25 20:00 06/30/25 20:56 06/30/25 22:12 Temperature Pulse Rate 94 91 91 Respiratory Rate Blood Pressure Pulse Oximetry Oxygen Delivery 07/01/25 00:00 07/01/25 04:00 07/01/25 04:00 Temperature 97.8 F Pulse Rate 100 83 86 Respiratory Rate 16 Blood Pressure 107/51 L Pulse Oximetry 95 Oxygen Delivery Intake/Output Intake/Output: Intake & Output 06/28/25 06/29/25 06/30/25 07/01/25 23:59 23:59 23:59 23:59 Intake Total 1028 326.9 970 200 Output Total 700 450 500 400 Balance 328 -123.1 470 -200 Meds/Results Medications: Active Medications Generic Name Dose Route Start Last Admin Trade Name Freq PRN Reason Stop Dose Admin Al Hydrox/Mg Hydrox/Simethicone 30 ml 06/27/25 14:25 Mag Hydrox/Al Hydrox/Simeth 30 Ml Udc PO QID PRN Dyspepsia Artificial Tears 1 drop 06/27/25 14:49 Artificial Tears Ophth Soln 15 Ml Bottle EACH EYE QID PRN Dry Eye(s) Aspirin 81 mg 06/28/25 09:00 06/30/25 08:43 Aspirin 81 Mg Enteric Tablet PO 81 mg QAM MAIRA Administration Atorvastatin Calcium 80 mg 06/28/25 09:00 06/30/25 08:43 Atorvastatin 40 Mg Tablet PO 80 mg DAILY MAIRA Administration Bisacodyl 5 mg 06/27/25 14:25 06/28/25 09:47 Bisacodyl 5 Mg Tablet Ec PO 5 mg DAILY PRN Administration Constipation Clopidogrel Bisulfate 75 mg 06/30/25 09:00 06/30/25 08:43 Clopidogrel Bisulfate 75 Mg Tablet PO 75 mg QAM MAIRA Administration Docusate Sodium 100 mg 06/27/25 17:00 06/30/25 20:08 Docusate Sodium 100 Mg Capsule PO Not Given BID MAIRA Empagliflozin 10 mg 06/29/25 09:00 06/30/25 08:42 Empagliflozin 10 Mg Tablet PO 10 mg DAILY MAIRA Administration Enoxaparin Sodium 40 mg 07/01/25 09:00 Enoxaparin 40 Mg/0.4 Ml Syringe SUB-Q DAILY [facility] Metoprolol Tartrate 12.5 mg 06/27/25 21:00 06/30/25 20:56 Metoprolol Tartrate 12.5 Mg Tablet PO 12.5 mg Q12HR MAIRA Administration Morphine Sulfate 2 mg 06/27/25 14:37 Morphine Sulfate (*Crx) 4 Mg/Ml Inj IV PUSH Q4H PRN Pain Rated 7-10 Naloxone HCl 0.1 mg 06/27/25 14:25 Naloxone Hcl 0.4 Mg/Ml Vial IV PUSH Q2M PRN Opiate Reversal Ondansetron HCl 4 mg 06/27/25 14:25 Ondansetron Inj 4 Mg/2 Ml Vial IV PUSH Q6H PRN Nausea And Vomiting Quetiapine Fumarate 25 mg 06/30/25 21:00 06/30/25 20:57 Quetiapine Fumarate 25 Mg Tablet PO 25 mg HS MAIRA Administration Sacubitril/Valsartan 1 tab 06/28/25 09:00 06/30/25 20:57 Sacubitril/Valsartan 24-26 Mg Tablet PO 1 tab Q12HR MAIRA Administration Radiology Results: ITS Impressions Head CT 06/27/25 08:23 IMPRESSION: 1. No acute intracranial findings. Chest/Abdomen/Pelvis CT 06/27/25 10:17 IMPRESSION: CHEST- 1. Small pericardial effusion. 2. Emphysema. Recommend annual screening CT chest. 3. Otherwise no acute abnormality. ABDOMEN/PELVIS- 1. No acute findings. Chest X-Ray 06/27/25 10:25 IMPRESSION: 1. No acute cardiopulmonary findings given portable technique. Labs Labs: Laboratory Results - last 24 hr 07/01/25 03:56 WBC 9.2 RBC 4.37 Hgb 13.1 Hct 39.9 MCV 91.3 MCH 30.0 MCHC 32.8 RDW 12.8 Plt Count 181 MPV 11.4 H Immature Gran % (Auto) 0.4 Neut % (Auto) 69.3 Lymph % (Auto) 17.9 L [place] % (Auto) 9.4 H Eos % (Auto) 2.3 Baso % (Auto) 0.7 Lymph # (Auto) 1.64 [place] # (Auto) 0.9 H Eos # (Auto) 0.2 Baso # (Auto) 0.1 Abs Immat Gran (auto) 0.04 H Absolute Neuts (auto) 6.4 Absolute Nucleated RBC 0.000 Nucleated RBC % 0.0 Sodium 133 L Potassium 3.8 Chloride 104 Carbon Dioxide 21 L Anion Gap 8 BUN 21 H Creatinine 0.95 Estim Creat Clear Calc 30 Estimated GFR 56 L Glucose 124 H Calcium 9.1 Magnesium 1.9 Total Bilirubin 0.9 AST 37 H ALT 20 Alkaline Phosphatase 144 H Total Protein 6.9 Albumin 3.6
[2025-07-01] MEDS: ASPIRIN 81 MG ENTERIC TABLET PO (09:16)
[2025-07-01] MEDS: SACUBITRIL/VALSARTAN 24-26 MG TABLET 1 TAB PO ×2 (09:16→20:28)
[2025-07-01] MEDS: EMPAGLIFLOZIN 10 MG TABLET PO (09:16)
[2025-07-01] MEDS: DOCUSATE SODIUM 100 MG CAPSULE PO (09:16)
[2025-07-01] MEDS: ATORVASTATIN 40 MG TABLET 80 MG PO (09:17)
[2025-07-01] MEDS: METOPROLOL TARTRATE 12.5 MG TABLET PO ×2 (09:17→20:28)
[2025-07-01] MEDS: CLOPIDOGREL BISULFATE 75 MG TABLET PO (09:17)
[2025-07-01] MEDS: ENOXAPARIN 40 MG/0.4 ML SYRINGE SUB-Q (09:19)
--- NOTE | 2025-07-01 11:04 | PC.NURSE ---
fire protection engineering technician called this RN to the room because the patient refused to get in bed. This RN went into the room to assess the situation. The patient was sitting on the side of the bed at the end of the bed. This RN asked the patient if she would like to get up in the bed or if she would like to sit in a chair. The patient was yelling and stated I want to sit right here. This RN explained to the patient that per our hospital policy if is unsafe for her to sit at the end of the bed as she needs to have an alarm on for to prevent her from falling. The patient yelled I have an alarm on. This RN explained to the patient that she does not have an alarm on, she has a gambling monitor on. The patient continue to yell and state that You need to listen to me. This RN explained that I am listening but that she will need to either get in the bed or sit in a chair. The patient then stated that You are not listening to me, I want to the blinds closed. This RN stated I will close the blinds but I need to know where you would like to sit. The patient climbed up into bed and stated you are all neglecting me, and you have all been nothing but an 'ass' here. I will tell you what I will never come back to this facility again. Assisted with blankets, blinds closed as requested and bed alarm turned back on and patient denies further requests.
--- NOTE | 2025-07-01 12:06 | PC.NURSE ---
Patient resting in bed with eyes closed. This RN asked the patient if she would like to sit up and eat lunch as it was delivered to her room. Patient states that she doesn't want to eat right now and would like to rest. Linoliliana left at bedside and discussed that we could heat it up when she is ready.
--- NOTE | 2025-07-01 16:09 | P.PNIM_ITS ---
Progress Note: A&P Assessment and Plan (1) NSTEMI (non-ST elevated myocardial infarction): Code(s): I21.4 - Non-ST elevation (NSTEMI) myocardial infarction Status: Acute Assessment and Plan: EKG: LBBB, repeat continues to show LBBB Troponins highly uptrending x3 0.06 > 3.57 > 15.9 > 11 S/p Cardiac cath and showed [place]A Continue Aspirin, Plavix, Lipitor and Metoprolol Cardiology following (2) Heart failure with reduced ejection fraction: Code(s): I50.20 - Unspecified systolic (congestive) heart failure Status: Acute Assessment and Plan: Echo ordered-EF 15-20% severe LVE, mild LVH, grade I diastolic dysfunction, mild , severe MAC, mod MV calcifications, trace TR. Started on Entresto, Jardiance, metoprolol tartrate b.i.d. patient and family declines Lifevest Cardiology following (3) History of gastroesophageal reflux (GERD): Code(s): Z87.19 - Personal history of other diseases of the digestive system Status: Acute Assessment and Plan: GI prophylaxis (4) Depression: Qualifiers: Depression Type: unspecified Qualified Code(s): F32.A - Depression, unspecified Code(s): F32.9 - Major depressive disorder, single episode, unspecified Status: Acute Assessment and Plan: On antidepressant that starts with Bu per patient- likely bupropion, will need confirmation (5) Dementia: Code(s): F03.90 - Unspecified dementia, unspecified severity, without behavioral disturbance, psychotic disturbance, mood disturbance, and anxiety Status: Acute Assessment and Plan: At baseline per sister, this has been progressing for several months Plan: Reorientation when needed Plan DVT prophylaxis: currently on Sq Lovenox awaiting placement Subjective Date/time seen: 07/01/25 16:09 Interval history: Comfortable at bedside and awaiting placement Review of Systems Review of Systems: AAOx2 - baseline per family Constitutional: Constitutional: Reports as per HPI Eyes: Eyes: Reports as per HPI Cardiovascular: Cardiovascular: Reports as per HPI Respiratory: Respiratory: Reports as per HPI Gastrointestinal: Gastrointestinal: Reports as per HPI Musculoskeletal: Musculoskeletal: Reports as per HPI Integumentary/Breasts: Skin/Breast: Reports as per HPI Neurologic: Reports system reviewed and no additional complaints, except as documented and Reports as per HPI Psychiatric: Psychiatric: Reports as per HPI Exam Const: General: no acute distress HENMT: Face/Nose/Sinus: Normal nares present Mouth: Yes moist mucous membranes Eyes: General: appearance normal, both eyes and all related structures Sclera: sclerae normal Pupils: Equal, round and reactive pupils present EOM: EOMs intact bilaterally Neck: Neck: supple and no JVD Resp: Effort & Inspection: normal respiratory effort Auscultation: clear to auscultation bilaterally Cardio: Rate: regular rate Rhythm: regular rhythm GI: Auscultation: normal bowel sounds Neuro: Cranial nerves: Yes Equal, round and reactive pupils present Speech: normal speech Psych: Affect: Anxious affect present Objective Data Vital Signs Vital Signs: Vital Signs - 24 hr 06/30/25 18:53 06/30/25 20:00 06/30/25 20:56 Temperature 96.8 F L Pulse Rate 88 94 91 Respiratory Rate 18 Blood Pressure 94/49 L Pulse Oximetry 97 Oxygen Delivery 06/30/25 22:12 07/01/25 00:00 07/01/25 04:00 Temperature Pulse Rate 91 100 83 Respiratory Rate Blood Pressure Pulse Oximetry Oxygen Delivery 07/01/25 04:00 07/01/25 07:41 07/01/25 07:41 Temperature 97.8 F 97.6 F Pulse Rate 86 72 Respiratory Rate 16 18 Blood Pressure 107/51 L 105/50 L Pulse Oximetry 95 97 97 Oxygen Delivery Room Air 07/01/25 08:00 07/01/25 08:00 07/01/25 09:17 Temperature Pulse Rate 88 88 76 Respiratory Rate 18 Blood Pressure Pulse Oximetry 97 Oxygen Delivery Room Air 07/01/25 11:52 07/01/25 15:55 Temperature 97.9 F 97.5 F L Pulse Rate 73 84 Respiratory Rate 18 20 Blood Pressure 91/43 L 106/50 L Pulse Oximetry 98 Oxygen Delivery Intake/Output Intake/Output: Intake & Output 06/28/25 06/29/25 06/30/25 07/01/25 23:59 23:59 23:59 23:59 Intake Total 1028 326.9 970 440 Output Total 700 450 500 400 Balance 328 -123.1 470 40 Meds/Results Medications: Active Medications Generic Name Dose Route Start Last Admin Trade Name Freq PRN Reason Stop Dose Admin Al Hydrox/Mg Hydrox/Simethicone 30 ml 06/27/25 14:25 Mag Hydrox/Al Hydrox/Simeth 30 Ml Udc PO QID PRN Dyspepsia Artificial Tears 1 drop 06/27/25 14:49 Artificial Tears Ophth Soln 15 Ml Bottle EACH EYE QID PRN Dry Eye(s) Aspirin 81 mg 06/28/25 09:00 07/01/25 09:16 Aspirin 81 Mg Enteric Tablet PO 81 mg QAM MAIRA Administration Atorvastatin Calcium 80 mg 06/28/25 09:00 07/01/25 09:17 Atorvastatin 40 Mg Tablet PO 80 mg DAILY MAIRA Administration Bisacodyl 5 mg 06/27/25 14:25 06/28/25 09:47 Bisacodyl 5 Mg Tablet Ec PO 5 mg DAILY PRN Administration Constipation Clopidogrel Bisulfate 75 mg 06/30/25 09:00 07/01/25 09:17 Clopidogrel Bisulfate 75 Mg Tablet PO 75 mg QAM MAIRA Administration Docusate Sodium 100 mg 06/27/25 17:00 07/01/25 09:16 Docusate Sodium 100 Mg Capsule PO 100 mg BID MAIRA Administration Empagliflozin 10 mg 06/29/25 09:00 07/01/25 09:16 Empagliflozin 10 Mg Tablet PO 10 mg DAILY MAIRA Administration Enoxaparin Sodium 40 mg 07/01/25 09:00 07/01/25 09:19 Enoxaparin 40 Mg/0.4 Ml Syringe SUB-Q 40 mg DAILY MAIRA Administration Metoprolol Tartrate 12.5 mg 06/27/25 21:00 07/01/25 09:17 Metoprolol Tartrate 12.5 Mg Tablet PO 12.5 mg Q12HR MAIRA Administration Morphine Sulfate 2 mg 06/27/25 14:37 Morphine Sulfate (*Crx) 4 Mg/Ml Inj IV PUSH Q4H PRN Pain Rated 7-10 Naloxone HCl 0.1 mg 06/27/25 14:25 Naloxone Hcl 0.4 Mg/Ml Vial IV PUSH Q2M PRN Opiate Reversal Ondansetron HCl 4 mg 06/27/25 14:25 Ondansetron Inj 4 Mg/2 Ml Vial IV PUSH Q6H PRN Nausea And Vomiting Quetiapine Fumarate 25 mg 06/30/25 21:00 06/30/25 20:57 Quetiapine Fumarate 25 Mg Tablet PO 25 mg HS MAIRA Administration Sacubitril/Valsartan 1 tab 06/28/25 09:00 07/01/25 09:16 Sacubitril/Valsartan 24-26 Mg Tablet PO 1 tab Q12HR MAIRA Administration Radiology Results: ITS Impressions Head CT 06/27/25 08:23 IMPRESSION: 1. No acute intracranial findings. Chest/Abdomen/Pelvis CT 06/27/25 10:17 IMPRESSION: CHEST- 1. Small pericardial effusion. 2. Emphysema. Recommend annual screening CT chest. 3. Otherwise no acute abnormality. ABDOMEN/PELVIS- 1. No acute findings. Chest X-Ray 06/27/25 10:25 IMPRESSION: 1. No acute cardiopulmonary findings given portable technique. Labs Labs: Laboratory Results - last 24 hr 07/01/25 03:56 WBC 9.2 RBC 4.37 Hgb 13.1 Hct 39.9 MCV 91.3 MCH 30.0 MCHC 32.8 RDW 12.8 Plt Count 181 MPV 11.4 H Immature Gran % (Auto) 0.4 Neut % (Auto) 69.3 Lymph % (Auto) 17.9 L [place] % (Auto) 9.4 H Eos % (Auto) 2.3 Baso % (Auto) 0.7 Lymph # (Auto) 1.64 [place] # (Auto) 0.9 H Eos # (Auto) 0.2 Baso # (Auto) 0.1 Abs Immat Gran (auto) 0.04 H Absolute Neuts (auto) 6.4 Absolute Nucleated RBC 0.000 Nucleated RBC % 0.0 Sodium 133 L Potassium 3.8 Chloride 104 Carbon Dioxide 21 L Anion Gap 8 BUN 21 H Creatinine 0.95 Estim Creat Clear Calc 30 Estimated GFR 56 L Glucose 124 H Calcium 9.1 Magnesium 1.9 Total Bilirubin 0.9 AST 37 H ALT 20 Alkaline Phosphatase 144 H Total Protein 6.9 Albumin 3.6 Quality VTE Prophylaxis VTE prophylaxis: mechanical ordered
--- NOTE | 2025-07-01 23:37 | PC.NURSE ---
Called report to [facility]. Met RN at bedside once patient arrived to new room. Patient AOx4 and no signs or symptoms of distress.
[2025-07-02] VITALS (10 sets, daily range): BP systolic 103–111; BP diastolic 52–59; PULSE 78–112; RESP 14–18; TEMP 36.4–37.1; O2SAT 90–96
[2025-07-02] MEDS: ENOXAPARIN 40 MG/0.4 ML SYRINGE SUB-Q (08:58)
[2025-07-02] MEDS: DOCUSATE SODIUM 100 MG CAPSULE PO (08:58)
[2025-07-02] MEDS: CLOPIDOGREL BISULFATE 75 MG TABLET PO (08:58)
[2025-07-02] MEDS: ASPIRIN 81 MG ENTERIC TABLET PO (08:58)
[2025-07-02] MEDS: SACUBITRIL/VALSARTAN 24-26 MG TABLET 1 TAB PO ×2 (08:58→20:10)
[2025-07-02] MEDS: EMPAGLIFLOZIN 10 MG TABLET PO (08:58)
[2025-07-02] MEDS: METOPROLOL TARTRATE 12.5 MG TABLET PO ×2 (08:58→20:09)
[2025-07-02] MEDS: ATORVASTATIN 40 MG TABLET 80 MG PO (08:58)
--- NOTE | 2025-07-02 15:45 | PM.IMPN ---
Progress Note: A&P Assessment and Plan (1) NSTEMI (non-ST elevated myocardial infarction): Code(s): I21.4 - Non-ST elevation (NSTEMI) myocardial infarction Status: Acute Assessment and Plan: EKG: LBBB, repeat continues to show LBBB Troponins highly uptrending x3 0.06 > 3.57 > 15.9 > 11 S/p Cardiac cath and showed [place] Continue Aspirin, Plavix, Lipitor and Metoprolol Cardiology following (2) Heart failure with reduced ejection fraction: Code(s): I50.20 - Unspecified systolic (congestive) heart failure Status: Acute Assessment and Plan: Echo ordered-EF 15-20% severe LVE, mild LVH, grade I diastolic dysfunction, mild , severe MAC, mod MV calcifications, trace TR. Started on Entresto, Jardiance, metoprolol tartrate b.i.d. patient and family declines [facility] Cardiology following (3) History of gastroesophageal reflux (GERD): Code(s): Z87.19 - Personal history of other diseases of the digestive system Status: Acute Assessment and Plan: GI prophylaxis (4) Depression: Qualifiers: Depression Type: unspecified Qualified Code(s): F32.A - Depression, unspecified Code(s): F32.9 - Major depressive disorder, single episode, unspecified Status: Acute Assessment and Plan: On antidepressant that starts with Bu per patient- likely bupropion, will need confirmation (5) Dementia: Code(s): F03.90 - Unspecified dementia, unspecified severity, without behavioral disturbance, psychotic disturbance, mood disturbance, and anxiety Status: Acute Assessment and Plan: At baseline per sister, this has been progressing for several months Plan: Reorientation when needed Plan DVT prophylaxis: currently on Sq Lovenox awaiting placement Subjective Date/time seen: 07/02/25 15:45 Interval history: Comfortable at bedside and awaiting placement Review of Systems Review of Systems: AAOx2 - baseline per family Constitutional: Constitutional: Reports as per HPI Eyes: Eyes: Reports as per HPI Cardiovascular: Cardiovascular: Reports as per HPI Respiratory: Respiratory: Reports as per HPI Gastrointestinal: Gastrointestinal: Reports as per HPI Musculoskeletal: Musculoskeletal: Reports as per HPI Integumentary/Breasts: Skin/Breast: Reports as per HPI Neurologic: Reports system reviewed and no additional complaints, except as documented and Reports as per HPI Psychiatric: Psychiatric: Reports as per HPI Exam Const: General: no acute distress HENMT: Face/Nose/Sinus: Normal nares present Mouth: Yes moist mucous membranes Eyes: General: appearance normal, both eyes and all related structures Sclera: sclerae normal Pupils: Equal, round and reactive pupils present EOM: EOMs intact bilaterally Neck: Neck: supple and no JVD Resp: Effort & Inspection: normal respiratory effort Auscultation: clear to auscultation bilaterally Cardio: Rate: regular rate Rhythm: regular rhythm GI: Auscultation: normal bowel sounds Neuro: Cranial nerves: Yes Equal, round and reactive pupils present Speech: normal speech Psych: Affect: Anxious affect present Objective Data Vital Signs Vital Signs: Vital Signs - 24 hr 07/01/25 15:55 07/01/25 16:00 07/01/25 20:00 Temperature 97.5 F L Pulse Rate 84 87 112 H Respiratory Rate 20 Blood Pressure 106/50 L Pulse Oximetry 98 Oxygen Delivery 07/01/25 20:28 07/02/25 00:00 07/02/25 02:09 Temperature 98.8 F Pulse Rate 91 83 91 Respiratory Rate 18 Blood Pressure 111/59 L Pulse Oximetry 90 Oxygen Delivery 07/02/25 04:00 07/02/25 06:04 07/02/25 08:00 Temperature 97.6 F Pulse Rate 81 85 112 H Respiratory Rate 18 Blood Pressure 103/52 L Pulse Oximetry 95 Oxygen Delivery 07/02/25 08:55 07/02/25 08:58 07/02/25 12:00 Temperature Pulse Rate 85 81 Respiratory Rate Blood Pressure Pulse Oximetry Oxygen Delivery Room Air Intake/Output Intake/Output: Intake & Output 06/29/25 06/30/25 07/01/25 07/02/25 23:59 23:59 23:59 23:59 Intake Total 326.9 970 880 600 Output Total 450 500 400 Balance -123.1 470 480 600 Meds/Results Medications: Active Medications Generic Name Dose Route Start Last Admin Trade Name Freq PRN Reason Stop Dose Admin Al Hydrox/Mg Hydrox/Simethicone 30 ml 06/27/25 14:25 Mag Hydrox/Al Hydrox/Simeth 30 Ml Udc PO QID PRN Dyspepsia Artificial Tears 1 drop 06/27/25 14:49 Artificial Tears Ophth Soln 15 Ml Bottle EACH EYE QID PRN Dry Eye(s) Aspirin 81 mg 06/28/25 09:00 07/02/25 08:58 Aspirin 81 Mg Enteric Tablet PO 81 mg QAM MAIRA Administration Atorvastatin Calcium 80 mg 06/28/25 09:00 07/02/25 08:58 Atorvastatin 40 Mg Tablet PO 80 mg DAILY MAIRA Administration Bisacodyl 5 mg 06/27/25 14:25 06/28/25 09:47 Bisacodyl 5 Mg Tablet Ec PO 5 mg DAILY PRN Administration Constipation Clopidogrel Bisulfate 75 mg 06/30/25 09:00 07/02/25 08:58 Clopidogrel Bisulfate 75 Mg Tablet PO 75 mg QAM MAIRA Administration Docusate Sodium 100 mg 06/27/25 17:00 07/02/25 08:58 Docusate Sodium 100 Mg Capsule PO 100 mg BID MAIRA Administration Empagliflozin 10 mg 06/29/25 09:00 07/02/25 08:58 Empagliflozin 10 Mg Tablet PO 10 mg DAILY MAIRA Administration Enoxaparin Sodium 40 mg 07/01/25 09:00 07/02/25 08:58 Enoxaparin 40 Mg/0.4 Ml Syringe SUB-Q 40 mg DAILY MAIRA Administration Metoprolol Tartrate 12.5 mg 06/27/25 21:00 07/02/25 08:58 Metoprolol Tartrate 12.5 Mg Tablet PO 12.5 mg Q12HR MAIRA Administration Morphine Sulfate 2 mg 06/27/25 14:37 Morphine Sulfate (*Crx) 4 Mg/Ml Inj IV PUSH Q4H PRN Pain Rated 7-10 Naloxone HCl 0.1 mg 06/27/25 14:25 Naloxone Hcl 0.4 Mg/Ml Vial IV PUSH Q2M PRN Opiate Reversal Ondansetron HCl 4 mg 06/27/25 14:25 Ondansetron Inj 4 Mg/2 Ml Vial IV PUSH Q6H PRN Nausea And Vomiting Quetiapine Fumarate 25 mg 06/30/25 21:00 07/01/25 20:28 Quetiapine Fumarate 25 Mg Tablet PO 25 mg HS MAIRA Administration Sacubitril/Valsartan 1 tab 06/28/25 09:00 07/02/25 08:58 Sacubitril/Valsartan 24-26 Mg Tablet PO 1 tab Q12HR MAIRA Administration Radiology Results: ITS Impressions Head CT 06/27/25 08:23 IMPRESSION: 1. No acute intracranial findings. Chest/Abdomen/Pelvis CT 06/27/25 10:17 IMPRESSION: CHEST- 1. Small pericardial effusion. 2. Emphysema. Recommend annual screening CT chest. 3. Otherwise no acute abnormality. ABDOMEN/PELVIS- 1. No acute findings. Chest X-Ray 06/27/25 10:25 IMPRESSION: 1. No acute cardiopulmonary findings given portable technique. Quality VTE Prophylaxis VTE prophylaxis: mechanical ordered
[2025-07-02] MEDS: cefTRIAXone 1 GM in SODIUM CHLORIDE 0.9% IV 50 ML 100 ML IVPB (17:24)
[2025-07-02] MEDS: PHENAZOPYRIDINE HCL 100 MG TABLET PO (21:38)
[2025-07-03] VITALS (11 sets, daily range): BP systolic 94–113; BP diastolic 46–54; PULSE 71–105; RESP 16–18; TEMP 36.4–37.1; O2SAT 92–100
[2025-07-03] MEDS: BETHANECHOL CHLORIDE 5 MG TABLET PO ×4 (05:35→20:40)
[2025-07-03] MEDS: PHENAZOPYRIDINE HCL 100 MG TABLET PO ×3 (09:25→17:48)
[2025-07-03] MEDS: ATORVASTATIN 40 MG TABLET 80 MG PO (09:25)
[2025-07-03] MEDS: METOPROLOL TARTRATE 12.5 MG TABLET PO ×2 (09:25→20:39)
[2025-07-03] MEDS: ASPIRIN 81 MG ENTERIC TABLET PO (09:25)
[2025-07-03] MEDS: DOCUSATE SODIUM 100 MG CAPSULE PO ×2 (09:25→17:48)
[2025-07-03] MEDS: CLOPIDOGREL BISULFATE 75 MG TABLET PO (09:25)
[2025-07-03] MEDS: SACUBITRIL/VALSARTAN 24-26 MG TABLET 1 TAB PO ×2 (09:25→20:39)
[2025-07-03] MEDS: EMPAGLIFLOZIN 10 MG TABLET PO (09:26)
[2025-07-03] MEDS: ENOXAPARIN 40 MG/0.4 ML SYRINGE SUB-Q (09:26)
--- NOTE | 2025-07-03 09:29 | PCNWS ---
Weekly nutritional screen. Patient is tolerating current heart healthy diet with adequate intake 75-100% most all meals. No weight loss reported. Pt waiting for placement for discharge. No nutritional recommendations at this time.
[2025-07-03] MEDS: CEPHALEXIN 500 MG CAPSULE PO ×2 (12:45→20:40)
[2025-07-04] VITALS (11 sets, daily range): BP systolic 108–118; BP diastolic 55–62; PULSE 71–89; RESP 16; TEMP 36.6–37; O2SAT 93–95
[2025-07-04 08:38] LABS: Hematocrit 39.1 % (37.0-47.0); Hemoglobin 12.7 g/dL (12.0-15.0); Immature Granulocyte Percent A 0.3 % (0-0.5); Lymphocytes Absolute Auto 1.73 K/mm3 (0.9-3.2); Mean Corpuscular HGB Conc 32.5 g/dl (32-36); Mean Corpuscular Hemoglobin 30.0 pg (26-34); Mean Corpuscular Volume 92.2 fl (80-100); Nucleated Red Blood Cells Absolute Auto 0.000 K/mm3 (0.0-0.012); Nucleated Red Blood Cells Perc 0.0 % (0.0-0.2); Platelet Count Result 199 k/mm3 (150-375); Red Blood Count 4.24 M/mm3 (4.2-5.4); White Blood Count 7.4 K/mm3 (4.5-10.0)
[2025-07-04 08:57] LABS: Alanine Aminotransferase 42 U/L (6-35); Albumin Level 3.5 g/dL (3.5-5.1); Alkaline Phosphatase 236 U/L (38-126); Anion Gap 5 mmol/L (4-12); Aspartate Amino Transferase 65 U/L (14-36); Bilirubin,Total 0.6 mg/dL (0.2-1.3); Blood Urea Nitrogen 17 mg/dL (7-17); Calcium 9.0 mg/dL (8.4-10.2); Carbon Dioxide 25 mmol/L (22-30); Chloride 104 mmol/L (98-107); Estimated CRCL calculation 40 ml/min; Estimated Glomerular Filt Rate > 60; Glucose 103 mg/dL (65-110); Potassium 3.9 mmol/L (3.4-5.0); Sodium 134 mmol/L (137-145); Total Protein 6.8 g/dL (6.3-8.2)
[2025-07-04] MEDS: METOPROLOL TARTRATE 12.5 MG TABLET PO ×2 (10:09→20:53)
[2025-07-04] MEDS: CLOPIDOGREL BISULFATE 75 MG TABLET PO (10:09)
[2025-07-04] MEDS: ATORVASTATIN 40 MG TABLET 80 MG PO (10:09)
[2025-07-04] MEDS: PHENAZOPYRIDINE HCL 100 MG TABLET PO ×3 (10:09→17:36)
[2025-07-04] MEDS: SACUBITRIL/VALSARTAN 24-26 MG TABLET 1 TAB PO ×2 (10:09→20:53)
[2025-07-04] MEDS: DOCUSATE SODIUM 100 MG CAPSULE PO ×2 (10:09→17:36)
[2025-07-04] MEDS: CEPHALEXIN 500 MG CAPSULE PO ×2 (10:09→20:53)
[2025-07-04] MEDS: ASPIRIN 81 MG ENTERIC TABLET PO (10:10)
[2025-07-04] MEDS: ENOXAPARIN 40 MG/0.4 ML SYRINGE SUB-Q (10:10)
[2025-07-04] MEDS: EMPAGLIFLOZIN 10 MG TABLET PO (10:10)
[2025-07-04] MEDS: BETHANECHOL CHLORIDE 5 MG TABLET PO ×3 (12:11→20:53)
--- NOTE | 2025-07-04 15:53 | P.PNIM_ITS ---
Progress Note: A&P Assessment and Plan (1) NSTEMI (non-ST elevated myocardial infarction): Code(s): I21.4 - Non-ST elevation (NSTEMI) myocardial infarction Status: Acute Assessment and Plan: EKG: LBBB, repeat continues to show LBBB Troponins highly uptrending x3 0.06 > 3.57 > 15.9 > 11 S/p Cardiac cath and showed [place] Continue Aspirin, Plavix, Lipitor and Metoprolol Cardiology following (2) Heart failure with reduced ejection fraction: Code(s): I50.20 - Unspecified systolic (congestive) heart failure Status: Acute Assessment and Plan: Echo ordered-EF 15-20% severe LVE, mild LVH, grade I diastolic dysfunction, mild , severe MAC, mod MV calcifications, trace TR. On Entresto, Jardiance, metoprolol tartrate b.i.d. patient and family declines [facility] following (3) History of gastroesophageal reflux (GERD): Code(s): Z87.19 - Personal history of other diseases of the digestive system Status: Acute Assessment and Plan: GI prophylaxis (4) Depression: Qualifiers: Depression Type: unspecified Qualified Code(s): F32.A - Depression, unspecified Code(s): F32.9 - Major depressive disorder, single episode, unspecified Status: Acute Assessment and Plan: On antidepressant that starts with Bu per patient- likely bupropion, will need confirmation (5) Dementia: Code(s): F03.90 - Unspecified dementia, unspecified severity, without behavioral disturbance, psychotic disturbance, mood disturbance, and anxiety Status: Acute Assessment and Plan: At baseline per sister, this has been progressing for several months Plan: Reorientation when needed Plan DVT prophylaxis: currently on Sq Lovenox awaiting placement Subjective Date/time seen: 07/04/25 15:53 Interval history: Comfortable at bedside and awaiting placement Review of Systems Review of Systems: AAOx2 - baseline per family Constitutional: Constitutional: Reports as per HPI Eyes: Eyes: Reports as per HPI Cardiovascular: Cardiovascular: Reports as per HPI Respiratory: Respiratory: Reports as per HPI Gastrointestinal: Gastrointestinal: Reports as per HPI Musculoskeletal: Musculoskeletal: Reports as per HPI Integumentary/Breasts: Skin/Breast: Reports as per HPI Neurologic: Reports system reviewed and no additional complaints, except as documented and Reports as per HPI Psychiatric: Psychiatric: Reports as per HPI Exam Const: General: no acute distress HENMT: Face/Nose/Sinus: Normal nares present Mouth: Yes moist mucous membranes Eyes: General: appearance normal, both eyes and all related structures Scle ra: sclerae normal Pupils: Equal, round and reactive pupils present EOM: EOMs intact bilaterally Neck: Neck: supple and no JVD Resp: Effort & Inspection: normal respiratory effort Auscultation: clear to auscultation bilaterally Cardio: Rate: regular rate Rhythm: regular rhythm GI: Auscultation: normal bowel sounds Neuro: Cranial nerves: Yes Equal, round and reactive pupils present Speech: normal speech Psych: Affect: Anxious affect present Objective Data Vital Signs Vital Signs: Vital Signs - 24 hr 07/03/25 16:00 07/03/25 20:00 07/03/25 20:00 Temperature Pulse Rate 75 85 Respiratory Rate Blood Pressure Pulse Oximetry Oxygen Delivery Room Air 07/03/25 20:39 07/03/25 22:00 07/04/25 00:00 Temperature 97.8 F Pulse Rate 90 88 89 Respiratory Rate 18 Blood Pressure 113/54 L Pulse Oximetry 95 Oxygen Delivery 07/04/25 04:00 07/04/25 05:38 07/04/25 08:00 Temperature 98.4 F Pulse Rate 81 78 82 Respiratory Rate 16 Blood Pressure 118/58 L Pulse Oximetry 95 Oxygen Delivery 07/04/25 10:09 07/04/25 10:10 07/04/25 12:00 Temperature Pulse Rate 78 71 Respiratory Rate Blood Pressure Pulse Oximetry Oxygen Delivery Room Air 07/04/25 14:01 Temperature 97.9 F Pulse Rate 76 Respiratory Rate 16 Blood Pressure 108/62 Pulse Oximetry 93 Oxygen Delivery Intake/Output Intake/Output: Intake & Output 07/01/25 07/02/25 07/03/25 07/04/25 23:59 23:59 23:59 23:59 Intake Total 880 1130 1090 970 Output Total 400 Balance 480 1130 1090 970 Meds/Results Medications: Active Medications Generic Name Dose Route Start Last Admin Trade Name Freq PRN Reason Stop Dose Admin Al Hydrox/Mg Hydrox/Simethicone 30 ml 06/27/25 14:25 Mag Hydrox/Al Hydrox/Simeth 30 Ml Udc PO QID PRN Dyspepsia Artificial Tears 1 drop 06/27/25 14:49 Artificial Tears Ophth Soln 15 Ml Bottle EACH EYE QID PRN Dry Eye(s) Aspirin 81 mg 06/28/25 09:00 07/04/25 10:10 Aspirin 81 Mg Enteric Tablet PO 81 mg QAM MAIRA Administration Atorvastatin Calcium 80 mg 06/28/25 09:00 07/04/25 10:09 Atorvastatin 40 Mg Tablet PO 80 mg DAILY MAIRA Administration Bethanechol Chloride 5 mg 07/03/25 06:30 07/04/25 12:11 Bethanechol Chloride 5 Mg Tablet PO 5 mg ACHS MAIRA Administration Bisacodyl 5 mg 06/27/25 14:25 06/28/25 09:47 Bisacodyl 5 Mg Tablet Ec PO 5 mg DAILY PRN Administration Constipation Cephalexin HCl 500 mg 07/03/25 12:00 07/04/25 10:09 Cephalexin 500 Mg Capsule PO 07/06/25 21:01 500 mg Q12HR MAIRA Administration Clopidogrel Bisulfate 75 mg 06/30/25 09:00 07/04/25 10:09 Clopidogrel Bisulfate 75 Mg Tablet PO 75 mg QAM MAIRA Administration Docusate Sodium 100 mg 06/27/25 17:00 07/04/25 10:09 Docusate Sodium 100 Mg Capsule PO 100 mg BID MAIRA Administration Empagliflozin 10 mg 06/29/25 09:00 07/04/25 10:10 Empagliflozin 10 Mg Tablet PO 10 mg DAILY MAIRA Administration Enoxaparin Sodium 40 mg 07/01/25 09:00 07/04/25 10:10 Enoxaparin 40 Mg/0.4 Ml Syringe SUB-Q 40 mg DAILY MAIRA Administration Metoprolol Tartrate 12.5 mg 06/27/25 21:00 07/04/25 10:09 Metoprolol Tartrate 12.5 Mg Tablet PO 12.5 mg Q12HR MAIRA Administration Morphine Sulfate 2 mg 06/27/25 14:37 Morphine Sulfate (*Crx) 4 Mg/Ml Inj IV PUSH Q4H PRN Pain Rated 7-10 Naloxone HCl 0.1 mg 06/27/25 14:25 Naloxone Hcl 0.4 Mg/Ml Vial IV PUSH Q2M PRN Opiate Reversal Ondansetron HCl 4 mg 06/27/25 14:25 Ondansetron Inj 4 Mg/2 Ml Vial IV PUSH Q6H PRN Nausea And Vomiting Phenazopyridine HCl 100 mg 07/03/25 08:00 07/04/25 12:11 Phenazopyridine Hcl 100 Mg Tablet PO 100 mg TIDWM MAIRA Administration Quetiapine Fumarate 25 mg 06/30/25 21:00 07/03/25 20:40 Quetiapine Fumarate 25 Mg Tablet PO 25 mg HS MAIRA Administration Sacubitril/Valsartan 1 tab 06/28/25 09:00 07/04/25 10:09 Sacubitril/Valsartan 24-26 Mg Tablet PO 1 tab Q12HR MAIRA Administration Radiology Results: ITS Impressions Head CT 06/27/25 08:23 IMPRESSION: 1. No acute intracranial findings. Chest/Abdomen/Pelvis CT 06/27/25 10:17 IMPRESSION: CHEST- 1. Small pericardial effusion. 2. Emphysema. Recommend annual screening CT chest. 3. Otherwise no acute abnormality. ABDOMEN/PELVIS- 1. No acute findings. Chest X-Ray 06/27/25 10:25 IMPRESSION: 1. No acute cardiopulmonary findings given portable technique. Labs Labs: Laboratory Results - last 24 hr 07/04/25 08:28 WBC 7.4 RBC 4.24 Hgb 12.7 Hct 39.1 MCV 92.2 MCH 30.0 MCHC 32.5 RDW 13.1 Plt Count 199 MPV 10.9 H Immature Gran % (Auto) 0.3 Neut % (Auto) 61.0 Lymph % (Auto) 23.5 [place] % (Auto) 8.4 Eos % (Auto) 6.1 H Baso % (Auto) 0.7 Lymph # (Auto) 1.73 [place] # (Auto) 0.6 Eos # (Auto) 0.5 H Baso # (Auto) 0.1 Abs Immat Gran (auto) 0.02 Absolute Neuts (auto) 4.5 Absolute Nucleated RBC 0.000 Nucleated RBC % 0.0 Sodium 134 L Potassium 3.9 Chloride 104 Carbon Dioxide 25 Anion Gap 5 BUN 17 Creatinine 0.79 Estim Creat Clear Calc 40 Estimated GFR > 60 Glucose 103 Calcium 9.0 Total Bilirubin 0.6 AST 65 H ALT 42 H Alkaline Phosphatase 236 H Total Protein 6.8 Albumin 3.5 Quality VTE Prophylaxis VTE prophylaxis: mechanical ordered
[2025-07-05] VITALS (11 sets, daily range): BP systolic 94–109; BP diastolic 53–61; PULSE 70–89; RESP 16–18; TEMP 36.2–37.1; O2SAT 94–99
[2025-07-05] MEDS: ATORVASTATIN 40 MG TABLET 80 MG PO (08:45)
[2025-07-05] MEDS: CLOPIDOGREL BISULFATE 75 MG TABLET PO (08:45)
[2025-07-05] MEDS: EMPAGLIFLOZIN 10 MG TABLET PO (08:45)
[2025-07-05] MEDS: ASPIRIN 81 MG ENTERIC TABLET PO (08:45)
[2025-07-05] MEDS: DOCUSATE SODIUM 100 MG CAPSULE PO ×2 (08:45→18:35)
[2025-07-05] MEDS: CEPHALEXIN 500 MG CAPSULE PO ×2 (08:45→21:10)
[2025-07-05] MEDS: ENOXAPARIN 40 MG/0.4 ML SYRINGE SUB-Q (08:46)
[2025-07-05] MEDS: PHENAZOPYRIDINE HCL 100 MG TABLET PO ×2 (08:46→18:35)
--- NOTE | 2025-07-05 10:06 | PM.IMPN ---
Progress Note: A&P Assessment and Plan (1) NSTEMI (non-ST elevated myocardial infarction): Code(s): I21.4 - Non-ST elevation (NSTEMI) myocardial infarction Status: Acute Assessment and Plan: EKG: LBBB, repeat continues to show LBBB Troponins highly uptrending x3 0.06 > 3.57 > 15.9 > 11 S/p Cardiac cath and showed [place] Continue Aspirin, Plavix, Lipitor and Metoprolol Cardiology following (2) Heart failure with reduced ejection fraction: Code(s): I50.20 - Unspecified systolic (congestive) heart failure Status: Acute Assessment and Plan: Echo ordered-EF 15-20% severe LVE, mild LVH, grade I diastolic dysfunction, mild , severe MAC, mod MV calcifications, trace TR. On Entresto, Jardiance, metoprolol tartrate b.i.d. patient and family declines [facility] following (3) History of gastroesophageal reflux (GERD): Code(s): Z87.19 - Personal history of other diseases of the digestive system Status: Acute Assessment and Plan: GI prophylaxis (4) Depression: Qualifiers: Depression Type: unspecified Qualified Code(s): F32.A - Depression, unspecified Code(s): F32.9 - Major depressive disorder, single episode, unspecified Status: Acute Assessment and Plan: On antidepressant that starts with Bu per patient- likely bupropion, will need confirmation (5) Dementia: Code(s): F03.90 - Unspecified dementia, unspecified severity, without behavioral disturbance, psychotic disturbance, mood disturbance, and anxiety Status: Acute Assessment and Plan: At baseline per sister, this has been progressing for several months Plan: Reorientation when needed Plan Pansensitive Proteus UTI dysuria resolved with abx continue Keflex per culture sensitivity DVT prophylaxis: currently on Sq Lovenox awaiting placement Subjective Date/time seen: 07/05/25 10:06 Interval history: Comfortable at bedside and awaiting placement Review of Systems Review of Systems: AAOx2 - baseline per family Constitutional: Constitutional: Reports as per HPI Eyes: Eyes: Reports as per HPI Cardiovascular: Cardiovascular: Reports as per HPI Respiratory: Respiratory: Reports as per HPI Gastrointestinal: Gastrointestinal: Reports as per HPI Musculoskeletal: Musculoskeletal: Reports as per HPI Integumentary/Breasts: Skin/Breast: Reports as per HPI Neurologic: Reports system reviewed and no additional complaints, except as documented and Reports as per HPI Psychiatric: Psychiatric: Reports as per HPI Exam Const: General: no acute distress HENMT: Face/Nose/Sinus: Normal nares present Mouth: Yes moist mucous membranes Eyes: General: appearance normal, both eyes and all related structures Sclera: sclerae normal Pupils: Equal, round and reactive pupils present EOM: EOMs intact bilaterally Neck: Neck: supple and no JVD Resp: Effort & Inspection: normal respiratory effort Auscultation: clear to auscultation bilaterally Cardio: Rate: regular rate Rhythm: regular rhythm GI: Auscultation: normal bowel sounds Neuro: Cranial nerves: Yes Equal, round and reactive pupils present Speech: normal speech Psych: Affect: Anxious affect present Objective Data Vital Signs Vital Signs: Vital Signs - 24 hr 07/04/25 10:09 07/04/25 10:10 07/04/25 12:00 Temperature Pulse Rate 78 71 Respiratory Rate Blood Pressure Pulse Oximetry Oxygen Delivery Room Air 07/04/25 14:01 07/04/25 16:00 07/04/25 20:00 Temperature 97.9 F Pulse Rate 76 77 84 Respiratory Rate 16 Blood Pressure 108/62 Pulse Oximetry 93 Oxygen Delivery 07/04/25 20:00 07/04/25 20:53 07/04/25 21:05 Temperature 98.6 F Pulse Rate 77 86 Respiratory Rate 16 Blood Pressure 112/55 L Pulse Oximetry 95 Oxygen Delivery Room Air 07/05/25 00:00 07/05/25 04:00 07/05/25 06:00 Temperature 98.8 F Pulse Rate 82 87 85 Respiratory Rate 18 Blood Pressure 109/56 L Pulse Oximetry 94 Oxygen Delivery 07/05/25 08:41 07/05/25 08:46 07/05/25 08:46 Temperature 97.1 F L Pulse Rate 80 80 76 Respiratory Rate 16 16 Blood Pressure 102/61 Pulse Oximetry 99 99 Oxygen Delivery Room Air Intake/Output Intake/Output: Intake & Output 07/02/25 07/03/25 07/04/25 07/05/25 23:59 23:59 23:59 23:59 Intake Total 1130 1090 1410 500 Balance 1130 1090 1410 500 Meds/Results Medications: Active Medications Generic Name Dose Route Start Last Admin Trade Name Freq PRN Reason Stop Dose Admin Al Hydrox/Mg Hydrox/Simethicone 30 ml 06/27/25 14:25 Mag Hydrox/Al Hydrox/Simeth 30 Ml Udc PO QID PRN Dyspepsia Artificial Tears 1 drop 06/27/25 14:49 Artificial Tears Ophth Soln 15 Ml Bottle EACH EYE QID PRN Dry Eye(s) Aspirin 81 mg 06/28/25 09:00 07/05/25 08:45 Aspirin 81 Mg Enteric Tablet PO 81 mg QAM MAIRA Administration Atorvastatin Calcium 80 mg 06/28/25 09:00 07/05/25 08:45 Atorvastatin 40 Mg Tablet PO 80 mg DAILY MAIRA Administration Bethanechol Chloride 5 mg 07/03/25 06:30 07/05/25 06:04 Bethanechol Chloride 5 Mg Tablet PO Not Given ACHS [facility] Bisacodyl 5 mg 06/27/25 14:25 06/28/25 09:47 Bisacodyl 5 Mg Tablet Ec PO 5 mg DAILY PRN Administration Constipation Cephalexin HCl 500 mg 07/03/25 12:00 07/05/25 08:45 Cephalexin 500 Mg Capsule PO 07/06/25 21:01 500 mg Q12HR MAIRA Administration Clopidogrel Bisulfate 75 mg 06/30/25 09:00 07/05/25 08:45 Clopidogrel Bisulfate 75 Mg Tablet PO 75 mg QAM MAIRA Administration Docusate Sodium 100 mg 06/27/25 17:00 07/05/25 08:45 Docusate Sodium 100 Mg Capsule PO 100 mg BID MAIRA Administration Empagliflozin 10 mg 06/29/25 09:00 07/05/25 08:45 Empagliflozin 10 Mg Tablet PO 10 mg DAILY MAIRA Administration Enoxaparin Sodium 40 mg 07/01/25 09:00 07/05/25 08:46 Enoxaparin 40 Mg/0.4 Ml Syringe SUB-Q 40 mg DAILY MAIRA Administration Metoprolol Tartrate 12.5 mg 06/27/25 21:00 07/04/25 20:53 Metoprolol Tartrate 12.5 Mg Tablet PO 12.5 mg Q12HR MAIRA Administration Morphine Sulfate 2 mg 06/27/25 14:37 Morphine Sulfate (*Crx) 4 Mg/Ml Inj IV PUSH Q4H PRN Pain Rated 7-10 Naloxone HCl 0.1 mg 06/27/25 14:25 Naloxone Hcl 0.4 Mg/Ml Vial IV PUSH Q2M PRN Opiate Reversal Ondansetron HCl 4 mg 06/27/25 14:25 Ondansetron Inj 4 Mg/2 Ml Vial IV PUSH Q6H PRN Nausea And Vomiting Phenazopyridine HCl 100 mg 07/03/25 08:00 07/05/25 08:46 Phenazopyridine Hcl 100 Mg Tablet PO 100 mg TIDWM MAIRA Administration Quetiapine Fumarate 25 mg 06/30/25 21:00 07/04/25 20:53 Quetiapine Fumarate 25 Mg Tablet PO 25 mg HS MAIRA Administration Sacubitril/Valsartan 1 tab 06/28/25 09:00 07/04/25 20:53 Sacubitril/Valsartan 24-26 Mg Tablet PO 1 tab Q12HR MAIRA Administration Radiology Results: ITS Impressions Head CT 06/27/25 08:23 IMPRESSION: 1. No acute intracranial findings. Chest/Abdomen/Pelvis CT 06/27/25 10:17 IMPRESSION: CHEST- 1. Small pericardial effusion. 2. Emphysema. Recommend annual screening CT chest. 3. Otherwise no acute abnormality. ABDOMEN/PELVIS- 1. No acute findings. Chest X-Ray 06/27/25 10:25 IMPRESSION: 1. No acute cardiopulmonary findings given portable technique. Quality VTE Prophylaxis VTE prophylaxis: mechanical ordered
[2025-07-05] MEDS: BETHANECHOL CHLORIDE 5 MG TABLET PO ×2 (18:35→21:10)
[2025-07-05] MEDS: METOPROLOL TARTRATE 12.5 MG TABLET PO (21:10)
[2025-07-05] MEDS: SACUBITRIL/VALSARTAN 24-26 MG TABLET 1 TAB PO (21:10)
[2025-07-06] VITALS (7 sets, daily range): BP systolic 116–117; BP diastolic 37–49; PULSE 66–92; RESP 16; TEMP 36.4–36.8; O2SAT 92–96
[2025-07-06] MEDS: BETHANECHOL CHLORIDE 5 MG TABLET PO ×2 (05:42→11:35)
--- NOTE | 2025-07-06 05:54 | PC.NURSE ---
Pt agitated and threw water pitcher at [facility] claiming that she was not answering her. Pt is yelling at staff and stating that she is not being helped when staff where in the room to help her. Pt redirected back to bed and instructed on how to use the call light and offered her assistance.
[2025-07-06] MEDS: DOCUSATE SODIUM 100 MG CAPSULE PO (08:21)
[2025-07-06] MEDS: PHENAZOPYRIDINE HCL 100 MG TABLET PO ×2 (08:21→11:35)
[2025-07-06] MEDS: ATORVASTATIN 40 MG TABLET 80 MG PO (08:21)
[2025-07-06] MEDS: EMPAGLIFLOZIN 10 MG TABLET PO (08:21)
[2025-07-06] MEDS: CLOPIDOGREL BISULFATE 75 MG TABLET PO (08:21)
[2025-07-06] MEDS: CEPHALEXIN 500 MG CAPSULE PO (08:21)
[2025-07-06] MEDS: ASPIRIN 81 MG ENTERIC TABLET PO (08:21)
[2025-07-06] MEDS: ENOXAPARIN 40 MG/0.4 ML SYRINGE SUB-Q (08:35)
[2025-07-06] MEDS: METOPROLOL TARTRATE 12.5 MG TABLET PO (08:35)
[2025-07-06] MEDS: SACUBITRIL/VALSARTAN 24-26 MG TABLET 1 TAB PO (08:35)
--- NOTE | 2025-07-06 13:46 | PM.IMPN ---
Progress Note: A&P Assessment and Plan (1) NSTEMI (non-ST elevated myocardial infarction): Code(s): I21.4 - Non-ST elevation (NSTEMI) myocardial infarction Status: Acute Assessment and Plan: EKG: LBBB, repeat continues to show LBBB Troponins highly uptrending x3 0.06 > 3.57 > 15.9 > 11 S/p Cardiac cath and showed [place] Continue Aspirin, Plavix, Lipitor and Metoprolol Cardiology following (2) Heart failure with reduced ejection fraction: Code(s): I50.20 - Unspecified systolic (congestive) heart failure Status: Acute Assessment and Plan: Echo ordered-EF 15-20% severe LVE, mild LVH, grade I diastolic dysfunction, mild , severe MAC, mod MV calcifications, trace TR. On Entresto, Jardiance, metoprolol tartrate b.i.d. patient and family declines [facility] following (3) History of gastroesophageal reflux (GERD): Code(s): Z87.19 - Personal history of other diseases of the digestive system Status: Acute Assessment and Plan: GI prophylaxis (4) Depression: Qualifiers: Depression Type: unspecified Qualified Code(s): F32.A - Depression, unspecified Code(s): F32.9 - Major depressive disorder, single episode, unspecified Status: Acute Assessment and Plan: On antidepressant that starts with Bu per patient- likely bupropion, will need confirmation (5) Dementia: Code(s): F03.90 - Unspecified dementia, unspecified severity, without behavioral disturbance, psychotic disturbance, mood disturbance, and anxiety Status: Acute Assessment and Plan: At baseline per sister, this has been progressing for several months Plan: Reorientation when needed Plan DVT prophylaxis: currently on Sq Lovenox awaiting placement Subjective Date/time seen: 07/03/25 13:46 Interval history: Comfortable at bedside and awaiting placement Review of Systems Review of Systems: AAOx2 - baseline per family Constitutional: Constitutional: Reports as per HPI Eyes: Eyes: Reports as per HPI Cardiovascular: Cardiovascular: Reports as per HPI Respiratory: Respiratory: Reports as per HPI Gastrointestinal: Gastrointestinal: Reports as per HPI Musculoskeletal: Musculoskeletal: Reports as per HPI Integumentary/Breasts: Skin/Breast: Reports as per HPI Neurologic: Reports system reviewed and no additional complaints, except as documented and Reports as per HPI Psychiatric: Psychiatric: Reports as per HPI Exam Const: General: no acute distress HENMT: Face/Nose/Sinus: Normal nares present Mouth: Yes moist mucous membranes Eyes: General: appearance normal, both eyes and all related structures Sclera: sclerae normal Pupils: Equal, round and reactive pupils present EOM: EOMs intact bilaterally Neck: Neck: supple and no JVD Resp: Effort & Inspection: normal respiratory effort Auscultation: clear to auscultation bilaterally Cardio: Rate: regular rate Rhythm: regular rhythm GI: Auscultation: normal bowel sounds Neuro: Cranial nerves: Yes Equal, round and reactive pupils present Speech: normal speech Psych: Affect: Anxious affect present Objective Data Vital Signs Vital Signs: Vital Signs - 24 hr 07/05/25 14:00 07/05/25 16:00 07/05/25 20:00 Temperature 97.8 F Pulse Rate 84 83 Respiratory Rate 16 Blood Pressure 94/53 L Pulse Oximetry 96 Oxygen Delivery Room Air 07/05/25 20:00 07/05/25 21:10 07/05/25 22:00 Temperature 98.1 F Pulse Rate 89 70 83 Respiratory Rate 18 Blood Pressure 108/57 L Pulse Oximetry 97 Oxygen Delivery 07/06/25 00:00 07/06/25 04:00 07/06/25 08:19 Temperature 97.6 F Pulse Rate 81 66 92 Respiratory Rate 16 Blood Pressure 116/49 L Pulse Oximetry 92 Oxygen Delivery 07/06/25 08:21 07/06/25 08:21 07/06/25 08:35 Temperature Pulse Rate 92 78 92 Respiratory Rate 16 Blood Pressure Pulse Oximetry 92 Oxygen Delivery Room Air 07/06/25 09:40 07/06/25 12:00 07/06/25 13:40 Temperature 98.3 F Pulse Rate 72 79 Respiratory Rate Blood Pressure 117/37 L Pulse Oximetry 96 Oxygen Delivery Room Air Intake/Output Intake/Output: Intake & Output 07/03/25 07/04/25 07/05/25 07/06/25 23:59 23:59 23:59 23:59 Intake Total 1090 1410 1090 480 Output Total 1 Balance 1090 1410 1090 479 Meds/Results Medications: Active Medications Generic Name Dose Route Start Last Admin Trade Name Freq PRN Reason Stop Dose Admin Al Hydrox/Mg Hydrox/Simethicone 30 ml 06/27/25 14:25 Mag Hydrox/Al Hydrox/Simeth 30 Ml Udc PO QID PRN Dyspepsia Artificial Tears 1 drop 06/27/25 14:49 Artificial Tears Ophth Soln 15 Ml Bottle EACH EYE QID PRN Dry Eye(s) Aspirin 81 mg 06/28/25 09:00 07/06/25 08:21 Aspirin 81 Mg Enteric Tablet PO 81 mg QAM MAIRA Administration Atorvastatin Calcium 80 mg 06/28/25 09:00 07/06/25 08:21 Atorvastatin 40 Mg Tablet PO 80 mg DAILY MAIRA Administration Bethanechol Chloride 5 mg 07/03/25 06:30 07/06/25 11:35 Bethanechol Chloride 5 Mg Tablet PO 5 mg ACHS MAIRA Administration Bisacodyl 5 mg 06/27/25 14:25 06/28/25 09:47 Bisacodyl 5 Mg Tablet Ec PO 5 mg DAILY PRN Administration Constipation Cephalexin HCl 500 mg 07/03/25 12:00 07/06/25 08:21 Cephalexin 500 Mg Capsule PO 07/06/25 21:01 500 mg Q12HR MAIRA Administration Clopidogrel Bisulfate 75 mg 06/30/25 09:00 07/06/25 08:21 Clopidogrel Bisulfate 75 Mg Tablet PO 75 mg QAM MAIRA Administration Docusate Sodium 100 mg 06/27/25 17:00 07/06/25 08:21 Docusate Sodium 100 Mg Capsule PO 100 mg BID MAIRA Administration Empagliflozin 10 mg 06/29/25 09:00 07/06/25 08:21 Empagliflozin 10 Mg Tablet PO 10 mg DAILY MAIRA Administration Enoxaparin Sodium 40 mg 07/01/25 09:00 07/06/25 08:35 Enoxaparin 40 Mg/0.4 Ml Syringe SUB-Q 40 mg DAILY MAIRA Administration Metoprolol Tartrate 12.5 mg 06/27/25 21:00 07/06/25 08:35 Metoprolol Tartrate 12.5 Mg Tablet PO 12.5 mg Q12HR MAIRA Administration Morphine Sulfate 2 mg 06/27/25 14:37 Morphine Sulfate (*Crx) 4 Mg/Ml Inj IV PUSH Q4H PRN Pain Rated 7-10 Naloxone HCl 0.1 mg 06/27/25 14:25 Naloxone Hcl 0.4 Mg/Ml Vial IV PUSH Q2M PRN Opiate Reversal Ondansetron HCl 4 mg 06/27/25 14:25 Ondansetron Inj 4 Mg/2 Ml Vial IV PUSH Q6H PRN Nausea And Vomiting Phenazopyridine HCl 100 mg 07/03/25 08:00 07/06/25 11:35 Phenazopyridine Hcl 100 Mg Tablet PO 100 mg TIDWM MAIRA Administration Quetiapine Fumarate 25 mg 06/30/25 21:00 07/05/25 21:10 Quetiapine Fumarate 25 Mg Tablet PO 25 mg HS MAIRA Administration Sacubitril/Valsartan 1 tab 06/28/25 09:00 07/06/25 08:35 Sacubitril/Valsartan 24-26 Mg Tablet PO 1 tab Q12HR MAIRA Administration Radiology Results: ITS Impressions Head CT 06/27/25 08:23 IMPRESSION: 1. No acute intracranial findings. Chest/Abdomen/Pelvis CT 06/27/25 10:17 IMPRESSION: CHEST- 1. Small pericardial effusion. 2. Emphysema. Recommend annual screening CT chest. 3. Otherwise no acute abnormality. ABDOMEN/PELVIS- 1. No acute findings. Chest X-Ray 06/27/25 10:25 IMPRESSION: 1. No acute cardiopulmonary findings given portable technique. Quality VTE Prophylaxis VTE prophylaxis: mechanical ordered
--- NOTE | 2025-07-06 13:47 | P.DS_ITS ---
DS: Admitting Diagnosis Discharge Date 07/06/25 Admitting Diagnosis NSTEMI DS: Discharge Diagnosis Discharge Diagnosis (1) NSTEMI (non-ST elevated myocardial infarction): Code(s): I21.4 - Non-ST elevation (NSTEMI) myocardial infarction Status: Acute DS: Summary Hospital Course Hospital Course: HPI per admitting provider: Patient is an 84 year old female PMH of depression, insomnia, dry eyes, chronic constipation presenting after she woke up her in bed and said she does not feel right. When EMs arrived, she was sitting on the floor, with only complaint of weakness. CT Head/Chest/Abdomen/Pelvis negative for acute pathology, labs within normal limits aside from troponin which was 0.06 > 3.57 > 15.9. EKG shows LBBB, unclear if new or not. Cardiology was consulted with diagnosis of NSTEMI made. Heparin drip was started in the ED, and patient is for transfer to IMU for presumed cardiac cath. Patient denies chest pain actively, however mentions breast pain on the right side. Her sister notes she may have been having chest pain, but has been developing dementia-like symptoms over the past few months, characterized by increased agitation. Currently, per family she is at baseline mental status. Patient denies history of HTN, HLD or signficant cardiac history. Patient was managed for NSTEMI and patient underwent cardiac cath and there was no significant stenosis., cariology was involed and patient was placed and discharged on Aspirin, Plavix, Lipitor and Metoprolol Also managed for Cardiomyopathy, ECHO showed EF 15-20% stated on discharged on Entresto, Jardiance and Metoprolol as above. Also managed for Pansensitive Proteus UTI and completed abx. F/u with PCP in 3-5 days F/u with cardiology as instructed Time Spent with Patient Time attestation: Total time spent providing and/or coordinating discharge services: Discharge Plan Discharge Attending physician on discharge: Darwin Geiger Consulting providers: Jim Christie; Mat Russo; Kasi Wilson Discharging Clinician: Darwin Geiger Anticipated Discharge Date/Time: 07/06/25 13:38 Patient Disposition: SNF Activity: as tolerated Diet: as tolerated and heart healthy Discharge Instructions: [facility] [address] [place] [address] DISCHARGE INSTRUCTIONS - POST RADIAL CATH Activity 1. No driving for 24 hours. 2. No lifting more than 5 lb with affected arm for 1 week. 3. May shower ( tomorrow) but no excessive soaking of affected hand/wrist (such as washing dishes), swimming pool or hot tub for 5 days. Wound Care 1. May remove arm board in the morning. 2. May remove gauze dressing in the morning and put Band-Aid over affected radial site. Keep site covered for 3 days. 3. Observe for redness, drainage, swelling or bleeding. Medications DO NOT STOP YOUR MEDICATIONS ONLY YOUR CLASS A REGIONAL DRIVERS CAN STOP THE FOLLOWING MEDICATIONS - PLEASE CALL THE OFFICE WITH QUESTIONS. *Aspirin *Ticagrelor (Brilinta) *Atorvastatin *Lisinopril or ARB *Metoprolol tartrate or succinate *Clopidogrel (Plavix) *Prasugrel (Effient) Important Reminders 1. Keep your stent card in your wallet at all times 2. Follow a heart healthy diet paying extra attention to cholesterol and fats. 3. Stay hydrated. 4. If you have chest pain unrelieved by rest or nitroglycerin (if prescribed) call 911 immediately. 5. If you miss one dose of Brilinta (if prescribed) take a tablet at the next time due. If you miss 2 doses take a tablet when you remember and resume at the next time due. *For any other questions please call the office at [phone]. Office hours are 8AM 4:30PM Sunday through Sunday. Patient Language: Yoruba Stand Alone Forms: General Discharge Information Follow-up/Referrals: Mat Russo MD [Physician, Cardiology] Referral Note: F/u with Cardiology as instructed Hermann Arrieta APRN [Primary Care Provider, Internal Medicine] Referral Note: F/u with PCP in 3-5 days Kasi Wilson MD [Physician, Psychiatry] Referral Note: F/u with Psych as instructed Discharge Medications: New aspirin 81 mg Tablet,Delayed Release (Dr/Ec) 81 mg PO QAM 30 Days Qty: 30 1RF metoprolol tartrate 25 mg tablet 12.5 mg PO BID 30 Days Qty: 30 1RF Jardiance 10 mg Tablet 10 mg PO DAILY 30 Days Qty: 30 1RF clopidogrel 75 mg Tablet 75 mg PO QAM 30 Days Qty: 30 1RF metoprolol tartrate 25 mg tablet 12.5 mg PO BID 30 Days Qty: 30 1RF atorvastatin 40 mg Tablet 80 mg PO DAILY 30 Days Qty: 60 1RF sacubitril-valsartan [Entresto] 24-26 mg Tablet 1 tab PO Q12HR 30 Days Qty: 60 1RF quetiapine [Seroquel] 25 mg Tablet 25 mg PO HS 30 Days Qty: 30 1RF Continued bupropion HCl 300 mg tablet extended release 24 hr 300 mg PO QAM Qty: 90 1RF doxycycline hyclate 20 mg tablet 20 mg PO Q24H clindamycin phosphate 1 % swab 1 applic TOPICAL DAILY polyethylene glycol 3350 [Miralax] 17 gram/dose powder 17 g PO DAILY triamcinolone acetonide 0.1 % cream 1 applic topical TID PRN (Reason: dermititis on face) gabapentin 300 mg capsule See Rx Instructions PO DAILY Qty: 120 3RF Rx Instructions: take one cap PO in the am, take 1 cap in afternoon, and take 2 in pm PO daily; Discontinued trazodone 50 mg tablet 50 mg PO QHS PRN (Reason: sleep) Qty: 30 2RF Date of admission: 06/27/25 10:48 Primary Care Provider: Hermann Arrieta Admitting Provider: Epi Wilson Attending physician on admission: Epi Wilson Condition: Guarded Prognosis
== END 2025-07-06 15:29 | DRG 281 ==
LOC: ANHED 08:16 → ANHIMU 11:38 → ANH2MED 07-06 13:40 → ANHIMU 07-07 09:13
PROVIDERS: Emergency Medicine; Internal Medicine; Internal Medicine Cardiovascular Disease; Student in an Organized Health Care Education/Training Program; Admitting Provider Family Medicine; Emergency Provider Student in an Organized Health Care Education/Training Program; PCP Nurse Practitioner; Visit Provider Internal Medicine
PROC: 4A023N7 Measurement of Cardiac Sampling and Pressure, Left Heart, Percutaneous Approach (ICD-10-PCS; CPT 93452; principal; 2025-06-29 14:00)
DX: I21.B Myocardial infarction with coronary microvascular dysfunction (principal); I42.9 Cardiomyopathy, unspecified; I50.42 Chronic combined systolic (congestive) and diastolic (congestive) heart failure; N39.0 Urinary tract infection, site not specified; I44.7 Left bundle-branch block, unspecified; I25.10 Atherosclerotic heart disease of native coronary artery without angina pectoris; R45.1 Restlessness and agitation; B96.4 Proteus (mirabilis) (morganii) as the cause of diseases classified elsewhere; K21.9 Gastro-esophageal reflux disease without esophagitis; K58.9 Irritable bowel syndrome, unspecified; J44.9 Chronic obstructive pulmonary disease, unspecified; G47.00 Insomnia, unspecified; H26.9 Unspecified cataract; M19.90 Unspecified osteoarthritis, unspecified site; G62.9 Polyneuropathy, unspecified; K59.09 Other constipation; F03.90 Unspecified dementia, unspecified severity, without behavioral disturbance, psychotic disturbance, mood disturbance, and anxiety; F32.A Depression, unspecified; Z20.822 Contact with and (suspected) exposure to COVID-19; Z96.653 Presence of artificial knee joint, bilateral; Z96.1 Presence of intraocular lens; Z90.10 Acquired absence of unspecified breast and nipple; Z79.899 Other long term (current) drug therapy; Z85.3 Personal history of malignant neoplasm of breast; Z87.891 Personal history of nicotine dependence
CPT/HCPCS: 36415; 70450; 71045; 71260; 74177; 80053; 80061; 80143; 80179; 80307; 81001; 81003; 82077; 82140; 82550; 82803; 82948; 83605; 83690; 83735; 83880; 84145; 84439; 84443; 84480; 84484; 85025; 85610; 85730; 86140; 86850; 86900; 86901; 87086; 87186; 87637; 93005; 93458; 96361; 96374; 97116; 97162; 97165; 97530; 97535; 99285; A9270; C1769; C1887; C1894; C8929; J0696; J1644; J1650; J2003; J2250; J2359; J3010; J7030; J7040; Q9957; Q9967

== ENCOUNTER 2025-07-09 03:41 | Emergency (ER) | payer MEDICARE, SELFPAY ==
--- OUTSIDE RECORDS SUMMARY | 2009-04-15 04:45 | XMS_ITS | Continuity of Care Document ---
Author Organization [facility] Address [address] [place] [address] [place] [address] Phone Care Team Providers Care Family Psychologist Name Role Phone Moreno OD, Eric Unavailable Unavailable Procedures Procedure Date Eye Exam Established Pt No Script Office/outpatient Visit, Est Office/outpatient Visit, Est Office/outpatient Visit, Est Advance Directives Directive Yes / No Effective Date File Name No Information Encounters Encounter Description Practice Location Reason(s) For Visit Diagnoses Date Provider Providers Copied on Encounter [facility], [address] [place] [address] [address], [place], [place], [id number], tel:[phone] [facility] No Information 0-200 9 Moreno OD Eric. [address] , [address], [place], [place], [facility], . tel:[phone] Office/outpat ient Visit, [facility], [address] [place] [address] [address], [place], [place], [address], [place] tel:[phone] [facility] No Information 1-200 8 Moreno OD Eric. [address], [place], [place], [facility], . tel:[phone] Office/outpat ient Visit, [facility], [address] [place] [address] [address], [place], [place], [address], tel:[phone] [facility] No Information 1-200 8 Moreno OD Eric. [address], [place], [address], [place]. tel:[phone] Office/outpat ient Visit, [facility], [address], [place], [place], [address], [place] tel:[phone] [facility] [place] [facility] No Information 4-200 7 Moreno OD Eric. [address] , [address], [place], [address], [place]. tel:[phone] Family History Family Member Type Diagnosis Age At Onset No Information Payers Payer name Insurance type Covered democrat ID Authorkyleea tinoa(s) Medicare [facility] [id number] Social History Type Description Quantity Date Captured Comments Sex Female Smoking Status No Information Chief Complaint And Reason For Visit No Information Reason For Referral Reason For Referral No Information History Of Present Illness Encounter Date Complaint History Of Prese nt Illness No Information Functional Status Date Functional Assessmen t No Information Instructions Date Instruction Additional Infor mation No Information Assessments Type Assessment Date No Information Patient Care Teams Name Effective Dates (start - stop) Status Members No Information
--- OUTSIDE RECORDS SUMMARY | 2016-10-25 06:52 | XMS_ITS | Continuity of Care Document ---
Author Organization [facility] Address [address] [facility] [address] [place] [address] Phone Care Team Providers Care Inspector Filter Tip Name Role Phone Santino Bernard MD Unavailable Unavailable Allergies, Adverse Reactions, Alerts Substance Reaction Status Criticality No Known Allergies Active No Inform ation Medications Medication Instructions Dosage Effective Dates (start - stop) Status Comments Keflex 500 mg capsule Take 1 tablet ever y 8 hours - Active citalopram 40 mg tablet - Active gabapentin 300 mg capsule - Active Procedures Procedure Date POSTOP FOLLOW-UP VISIT POSTOP FOLLOW-UP VISIT POSTOP FOLLOW-UP VISIT OFFICE/OUTPATIENT VISIT EST OFFICE/OUTPATIENT VISIT EST OFFICE[facility]PATIENT [facility]IT [facility] Advance Directives Directive Yes / No Effective Date File Name No Information Encounters Encounter Description Practice Location Reason(s) For Visit Diagnoses Date Provider Providers Copied on Encounter [facility], [address] [place] [address], [address], [place] tel:[phone] [facility] No Information 7 Marco Antonio De. [address], [place], [place], [address] . tel: [phone] [facility], [address] [facility] [address], [place], [address], [place] tel:[phone] [facility] Micaela S/P Lt knee arthroscopy (chief complaint) Status post arthroscopy of left knee 0 7201 7 Marco Antonio De. [address], [place], [place], [id number] . tel: [phone] [facility], [address] [address], [place], [address], [place] tel:[phone] [facility] [place] S/p Lt knee arthroscopy (chief complaint) Status post arthroscopy of left knee 7 Marco Antonio De. [address], [place], [place], [address] . tel: [phone] [facility], [address] [place] [address], [place], [address], [place] tel:[phone] [facility] [place] S/P Lt knee arthroscopy (chief complaint) Status post arthroscopy of left knee 7 Marco Antonio De. [address], [place], [place], [address] . tel: [phone] [facility], [address] [place] [address], [place], [address], [place] tel:[phone] [facility] [place] Other tear of medial meniscus of left knee as current injury, subsequent encounterOthe r meniscus derangements, other medial meniscus, left knee 6 Marco Antonio De. [address], [place], [place], [address] . tel: [phone] OFFICE/OUTPA TIENT VISIT EST [facility], [address] [place] [address], [address], [place] tel:[phone] [facility] [place] Left anterior knee painPrimary osteoarthriti s of left knee 6 Marco Antonio De. [address], [place], [place], [address] . tel: [phone] OFFICE/OUTPA TIENT VISIT EST [facility], [address] [place] [address], [place], [address], [place] tel:[phone] [facility] [place] Follow Up of left knee pain (chief complaint) Left anterior knee pain 6 [address], [place], [place], [address] . tel: [phone] OFFICE/OUTPA TIENT VISIT [facility], [address] [facility] [address], [place], [address], [place] tel:[phone] [facility] [address] left knee pain (chief complaint) Primary osteoarthriti s of right kneePrimary osteoarthriti s of left knee 6 Marco Antonio De. [address], [place], [place], [address] . tel: [phone] Family History Family Member Type Diagnosis Age At Onset Father Problem (finding) Father Problem (finding) 72 Father Problem (finding) malignant neop lasm of lung (Cause Of ) 72 Payers Payer name Insurance type Covered green party ID Nae singh(s) Medicare E2 OT [id number] [place] Insurance OT [id number] Social History Type Description Quantity Date Captured Comments Alcohol Use Details Unknown Caffeine Use Details Unknown Tobacco Use Status Smoking Status No Information Sex Female Chief Complaint And Reason For Visit No Information Reason For Referral Reason For Referral No Information Plan Of Treatment Date Type Action Status Referral Ordered: MRI ANY JT LXTR C-MATRL LT knee Appointment date/timeframe: 09/08/2016 ordered Referral Ordered: RADEX KNE COMPL 4/MORE VIEWS LT ordered History Of Present Illness Encounter Date Complaint History Of Prese nt Illness S/P Lt knee arthroscopy S/p Lt knee arthroscopy S/P Lt knee arthroscopy Follow Up of left knee pain left knee pain Functional Status Date Functional Assessmen t No Information Instructions Date Instruction Additional Infor mation Take medication as directed. Rel ated to Status post arthroscopy of left knee Activity as tolerated. Related t o Status post arthroscopy of left knee Avoid prolonged bed rest Related to Status post arthroscopy of left knee Ice as tolerated Related to Stat us post arthroscopy of left knee Call if elevated temperature Rel ated to Status post arthroscopy of left knee Ice or heat for comfort Related to Status post arthroscopy of left knee Watch for signs of infection Rel ated to Status post arthroscopy of left knee apply heating pad or ice as tolerated Related to Left anterior knee pain immobilize if directed Related t o Left anterior knee pain home exercise program Related to Left anterior knee pain activity as tolerated Related to Primary osteoarthritis of left knee apply heating pad or ice as tolerated Related to Primary osteoarthritis of left knee home exercise program Related to Primary osteoarthritis of left knee activity as tolerated Related to Left anterior knee pain activity as tolerated Related to Left anterior knee pain apply heating pad or ice as tolerated Related to Left anterior knee pain elevate higher than your heart R elated to Left anterior knee pain activity as tolerated Related to Primary osteoarthritis of left knee apply heating pad or ice as tolerated Related to Primary osteoarthritis of left knee elevate higher than your heart R elated to Primary osteoarthritis of left knee Assessments Type Assessment Date No Information Patient Care Teams Name Effective Dates (start - stop) Status Members No Information
--- NOTE | ~2025-07-09 | CT_ITS ---
CT HEAD NON-CONTRAST CT C-SPINE Clinical History: fall Comparison: CT brain 06/27/2025 CT C-spine 12/20/2023 Technique: Unenhanced axial images skull base to vertex. Coronal, sagittal reformats. Axial images thoracic inlet to skull base. Sagittal and coronal reformats. CT images acquired with automatic exposure control for dose reduction DLP: 757 mGy-cm Findings: Head: Age-related atrophy. Extensive white matter chronic microvascular ischemic change. Basal ganglia lacunae. Sulci, ventricles: Unremarkable. No intracerebral hemorrhage. No evidence acute territorial infarct. No mass effect, midline shift, intra-/extra-axial fluid collection. Bony calvarium intact. Visualized paranasal sinuses: Clear. Mastoid air cells: Clear. C-spine: No acute fracture or listhesis. Vertebral bodies normal height and alignment. Moderate degenerative changes. Disc spaces maintained. Prevertebral soft tissues within normal limits. Visualized lung apices: Mild emphysema. Visualized thyroid: Unremarkable. No enlarged cervical nodes. IMPRESSION: HEAD: 1. No acute intracranial findings. C-SPINE: 1. No acute fracture. Reviewed, dictated and finalized at location R. IMPRESSION: HEAD: 1. No acute intracranial findings. C-SPINE: 1. No acute fracture.
--- NOTE | ~2025-07-09 | CT_ITS ---
EXAMINATION: CT thoracic lumbar wo con DATE: 07/09/2025 04:22 INDICATION: Status post fall. Back pain. TECHNIQUE: Computed tomography (CT) of the thoracic and lumbar spine was performed without intravenous contrast. The dose-length product was 630.76 mGy-cm. COMPARISON: None FINDINGS: Thoracic spine: Accentuated thoracic kyphosis. Mild multilevel thoracic spondylosis. No fracture or traumatic malalignment. Mild dextrocurvature of the thoracic spine. There is a lytic lesion of the right fifth rib posteriorly. No significant paraspinal soft tissue abnormality. There is atherosclerosis of the aorta and coronary arteries. No significant pleural or pericardial effusion. Lumbar spine: Mild-moderate multilevel lumbar spondylosis. There is near complete loss of disc space at L5-S1 with dorsal osteophytes contributing to bilateral neural foraminal narrowing. No acute fracture or traumatic malalignment. No focal lytic or blastic lesions. No evidence for spondylolisthesis. Mild levocurvature of the lumbar spine. IMPRESSION: 1. No acute fracture. 2: Lytic lesion right fifth rib posteriorly. Consider metastatic disease and myeloma. Correlate for history of malignancy. 3: Mild-moderate thoracic and lumbar spondylosis. Reviewed, dictated and finalized at location O. IMPRESSION: 1. No acute fracture. 2: Lytic lesion right fifth rib posteriorly. Consider metastatic disease and m yeloma. Correlate for history of malignancy. 3: Mild-moderate thoracic and lumbar spondylosis.
[2025-07-09 03:44] VITALS: BP 135/68; PULSE 80; RESP 14; TEMP 36.7; O2SAT 100
--- OUTSIDE RECORDS SUMMARY | 2025-07-09 03:54 | XMS_ITS | Clinical Summary ---
Author Organization [facility] Medical [facility] [address] [place] [id number] Care Team Providers Care Candle Cutter Name Role Phone Juan Izquierdo MD Primary Care Provider [phone] Beronica Rivers MD Unavailable [phone] Allergies No known active allergies Medications citalopram (CeleXA) 40 mg tablet Take 40 mg by mouth daily 01/31/2021 Active gabapentin (NEURONTIN) 300 mg capsule Take 300 mg by mouth 3 (three) times a day Active Active Problems No known active problems Encounters Date Type Department Care Team Description 06/30/2025 Orders Only [facility] Cardiology [address] [place] [id number] Luigi Piper MD from Last 3 Months Surgical History Surgery Date Site/Laterality Comments MASTECTOMY [...] on file 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 Gender Identity Not on file Sexual Orientation [...] CDT Plan of Treatment Not on file Procedures Procedure Name Priority Date/Time Associated Diagnosis Comments CARDIOLOGY DOCUMENT SCAN Routine 06/29/2025 5:01 PM CDT from Last 3 Months Results * Cardiology Document Scan (06/29/2025 5:01 PM CDT) Anatomical Region Laterality Modality Other Luigi Piper MD CV CARDIAC SERVICES PROCEDURES F inal Result from Last 3 [place] [address] MEDICARE [employer] SENIOR [employer]LEMENT MEDICARE Care Teams Candle Cutter Relationship Specialty Start Date End Date Juan Izquierdo MD [address] [facility] [address] [place] [address] PCP - General 09/12/12 Beronica Rivers MD [address] [place] [address] Referring Physician Obstetrics and Gynecology 09/21/20
[2025-07-09] MEDS: ACETAMINOPHEN 500 MG TABLET 1000 MG PO (04:38)
--- NOTE | 2025-07-09 05:26 | ED.FALL ---
HPI - Fall General Chief Complaint: Fall Stated Complaint: Fall, lower back pain Time Seen by Provider: 07/09/25 03:43 History of Present Illness HPI Narrative: 84-year-old female with history of dementia presenting to the emergency department after being found on the ground, suspected ground level fall by staff at her facility. Patient reports pain down her back. One some in the ED. Patient has baseline dementia. She is awake alert oriented. At her baseline mentation presently. No neurological deficits moving all extremities. She does not appear in any distress. Was recently discharged from this facility. Started on aspirin Plavix at that time but no other anticoagulants on EMR review. Related Data Home Medications ?Medication ?Instructions ?Recorded ?Confirmed ?Last Taken ?Type clindamycin phosphate 1 % topical 1 applic topical DAILY 06/27/25 06/27/25 Unknown History swab doxycycline hyclate 20 mg tablet 20 mg PO Q24H 06/27/25 06/27/25 06/26/25 09:00 History 20 mg polyethylene glycol 3350 17 17 g PO DAILY 06/27/25 06/27/25 06/26/25 09:00 History gram/dose oral powder (Miralax) 17 grams triamcinolone acetonide 0.1 % 1 applic topical TID PRN 06/27/25 06/27/25 06/26/25 17:00 History topical cream dermititis on face 1 applic Allergies Allergy/AdvReac Type Severity Reaction Status Date / Time No Known Allergies Allergy Verified 06/27/25 16:05 Review of Systems Review of Systems: As reviewed above ROS unobtainable: Yes unobtainable due to mental status PMFSH Past Medical History Medical History Heart failure with reduced ejection fraction Constipation Abdominal pain History of vaginal delivery x 3 Hx of breast cancer Depression Ankle fracture Rt x2. Arthritis History of melena GERD (gastroesophageal reflux disease) IBS (irritable bowel syndrome) Ulcer Hx of hemorrhoids COPD (chronic obstructive pulmonary disease) LBBB (left bundle branch block) Peripheral neuropathy Cataracts, bilateral History of COPD History of peripheral neuropathy History of gastroesophageal reflux (GERD) History of depression Surgical History Surgical History History of bilateral knee arthroplasty History of hemorrhoidectomy H/O cataract removal with insertion of prosthetic lens History of mastectomy Family History Family History Sibling Family history of diabetes mellitus in first degree relative Family history of malignant neoplasm of breast in first degree relative Patient's sister is in good health Father No family history of malignant neoplasm Family history of lung cancer Mother Patient's mother is Family history of Alzheimer's disease Family history of malignant melanoma Social History Social History Social History: Caffeine-coffee Smoking packs per day: 0.25 Smoking cigarettes per day: 5.0 Years smoked: 40 Smoking pack-years: 10.00 Smoking status: Former smoker Tobacco type: cigarettes Second hand tobacco smoke exposure: No Smoking end date: 09/17/98 Alcohol intake: never Substance use: never Substance use type: does not use Do You Feel Safe in your Home?: Yes Lack of Transportation: No Lack of Food: Never True Current Housing: I Have Housing Concerned About Future Housing: No Difficulty Paying Gas/Electric Bills: No Difficulty Paying for Meds: No Currently Unemployed: No Education: High School Diploma/GED Difficulty w/ Childcare or Family Care: No Living arrangements: with family Spiritual care concerns: No Exam Narrative: GENERAL: [Well-appearing, well-nourished, and in no acute distress.] HEAD: [Normocephalic, atraumatic.] EYES: [PERRLA and EOMI.] ENT: Nares clear, no rhinorrhea or epistaxis. Mucous membranes moist. NECK: Supple. CHEST: [Clear to auscultation. No respiratory distress.] HEART: [Regular rate and rhythm]. No murmur heard. [Normal peripheral pulses.] ABDOMEN: [Soft, nondistended], [nontender], [No rigidity or guarding] EXTREMITIES: Normal range of motion. [No edema.] No midline spinal tenderness. No deformity. Ranging all extremities equally. Normal strength. SKIN: Warm, dry, no rash. NEURO: [No focal deficits]. Alert and oriented [x3.] PSYCH: [Normal mood and affect.] Course Vital Signs Vital signs: Vital Signs Temperature 36.7 C 07/09/25 03:44 Pulse Rate 80 07/09/25 03:44 Respiratory Rate 14 07/09/25 03:44 Blood Pressure 135/68 07/09/25 03:44 Pulse Oximetry 100 07/09/25 03:44 Oxygen Delivery Room Air 07/09/25 03:44 Temperature 36.7 C 07/09/25 03:44 Pulse Rate 80 07/09/25 03:44 Respiratory Rate 14 07/09/25 03:44 Blood Pressure 135/68 07/09/25 03:44 Pulse Oximetry 100 07/09/25 03:44 Oxygen Delivery Room Air 07/09/25 03:44 MDM - Fall MDM Narrative Medical decision making narrative: 84-year-old female with history of dementia presenting to the emergency department after being found on the ground, suspected ground level fall by staff at her facility. Patient reports pain down her back. One some in the ED. Patient has baseline dementia. She is awake alert oriented. At her baseline mentation presently. No neurological deficits moving all extremities. She does not appear in any distress. Was recently discharged from this facility. Started on aspirin Plavix at that time but no other anticoagulants on EMR review. Patient is very well-appearing not any distress with normal vital signs. Given her fall with complaints of back pain CTs of the head and spine were obtained. These were unremarkable. Patient given Tylenol with improvement. Safe for discharge home. Family has arrived to drive the patient back. She is in good spirits and at baseline mentation and functional status at this time. Medical Records Attestation: I reviewed the patient's medical records. Imaging Data Attestation: I personally reviewed and interpreted this imaging study as follows: My impression: No traumatic injuries Discharge Plan Discharge Clinical Impression: Fall, Dementia Patient Disposition: Home Condition: Stable Instructions: Antibiotic Form Additional Instructions: CT scan showed no injuries. Take Tylenol and ibuprofen for any aches or pains. Return with any emergent concerns Patient Language: Tamazight Prescriptions: No Action bupropion HCl 300 mg tablet extended release 24 hr 300 mg PO QAM Qty: 90 1RF doxycycline hyclate 20 mg tablet 20 mg PO Q24H clindamycin phosphate 1 % swab 1 applic TOPICAL DAILY polyethylene glycol 3350 [Miralax] 17 gram/dose powder 17 g PO DAILY triamcinolone acetonide 0.1 % cream 1 applic topical TID PRN (Reason: dermititis on face) quetiapine [Seroquel] 25 mg Tablet 25 mg PO HS 30 Days Qty: 30 1RF atorvastatin 40 mg Tablet 80 mg PO DAILY 30 Days Qty: 60 1RF aspirin 81 mg Tablet,Delayed Release (Dr/Ec) 81 mg PO QAM 30 Days Qty: 30 1RF sacubitril-valsartan [Entresto] 24-26 mg Tablet 1 tab PO Q12HR 30 Days Qty: 60 1RF metoprolol tartrate 25 mg tablet 12.5 mg PO BID 30 Days Qty: 30 1RF clopidogrel 75 mg Tablet 75 mg PO QAM 30 Days Qty: 30 1RF Jardiance 10 mg Tablet 10 mg PO DAILY 30 Days Qty: 30 1RF gabapentin 300 mg capsule See Rx Instructions PO DAILY Qty: 120 3RF Rx Instructions: take one cap PO in the am, take 1 cap in afternoon, and take 2 in pm PO daily; Follow-up/Referrals: Hermann Arrieta APRN [Primary Care Provider, Internal Medicine] Time of Disposition: 05:24
[2025-07-09 05:27] VITALS: BP 93/61; PULSE 80; RESP 16; O2SAT 98
== END 2025-07-09 05:29 ==
PROVIDERS: Emergency Provider Student in an Organized Health Care Education/Training Program; PCP Nurse Practitioner
DX: M54.50 Low back pain, unspecified (principal); F03.90 Unspecified dementia, unspecified severity, without behavioral disturbance, psychotic disturbance, mood disturbance, and anxiety; W18.30XA Fall on same level, unspecified, initial encounter; I50.9 Heart failure, unspecified; Z85.3 Personal history of malignant neoplasm of breast; K21.9 Gastro-esophageal reflux disease without esophagitis; J44.9 Chronic obstructive pulmonary disease, unspecified; F32.A Depression, unspecified; Z96.653 Presence of artificial knee joint, bilateral; Z87.891 Personal history of nicotine dependence
CPT/HCPCS: 51702; 70450; 72125; 72128; 72131; 99283; A9270

== ENCOUNTER 2025-08-11 15:19 | Emergency (ER) | payer MEDICARE, SELFPAY ==
--- NOTE | ~2025-08-11 | CT_ITS ---
EXAMINATION: CT facial & cervical spine wo COMPARISON: None HISTORY: fall, head injury TECHNIQUE: Axial images were obtained without IV contrast. Sagittal, coronal reconstruction images were obtained from the axial views. CT scan performed using dose optimization techniques including the following automated exposure control; adjustment of mA and/or kV; use of iterative reconstruction technique. Automatic exposure control was used to reduce radiation dose. Permanent radiation dose record is archived to PACS. FINDINGS: CT facial bones: The nasal bones are intact. Anterior maxillary sinus bay and zygomatic arches are intact. Temporomandibular joints are intact. Orbital floors and medial orbits appear intact. Visualized brain parenchyma is unremarkable. There is no retrobulbar hemorrhage identified. The soft tissues appear unremarkable CT cervical spine: The lung apices demonstrate chronic changes with scattered foci of groundglass attenuation nonspecific but may be infectious, follow-up suggested to assess stability or resolution. The remaining soft tissues appear unremarkable. Moderate loss of vertebral height throughout, no fracture. There is grade 1 anterolisthesis of C4 on C5. Severe loss of disc height at C5-6 and C6-7 with moderate to severe canal and foraminal stenosis. IMPRESSION: No acute fracture is identified. Reviewed, dictated and finalized at location P. DRIVER
--- NOTE | ~2025-08-11 | CT_ITS ---
EXAMINATION: CT brain wo kapil, 08/11/2025 17:38 NUMERICAL ANALYSIS GROUP MANAGER HISTORY: fall, head injury COMPARISON: No comparisons available. Technique: Axial images obtained of the brain without contrast. One or more of the following dose reduction techniques were used: automated exposure control, adjustment of the mA and/or kV according to patient size, use of iterative reconstruction technique. Findings: No acute infarct or parenchymal hemorrhage. No abnormal mass or mass effect. No midline shift. No extra-axial fluid collections. No hydrocephalus. Mastoid air cells unremarkable. Sinuses and orbits unremarkable. No acute fracture. No significant facial or scalp soft tissue swelling evident. No radiopaque foreign body is seen. Impression: 1.No acute intracranial abnormality. Reviewed, dictated and finalized at location P. RICAL ANALYSIS GROUP MANAGER Impression: 1.No acute intracranial abnormality.
--- NOTE | 2025-08-11 15:30 | PC.NURSE ---
Pt has hx of dementia
[2025-08-11 15:31] VITALS: BP 97/61; PULSE 81; RESP 20; TEMP 36.6; O2SAT 99
--- OUTSIDE RECORDS SUMMARY | 2025-08-11 16:59 | XMS_ITS | Clinical Summary ---
Author Organization [facility] Medical [facility] [place] [address] [place] [id number] Care Team Providers Care Methods And Procedures Analyst Name Role Phone Juan Izquierdo MD Primary Care Provider [phone] Beronica Rivers MD Unavailable [phone] Allergies No known active allergies Medications citalopram (CeleXA) 40 mg tablet Take 40 mg by mouth daily 01/31/2021 Active gabapentin (NEURONTIN) 300 mg capsule Take 300 mg by mouth 3 (three) times a day Active Active Problems No known active problems Encounters Date Type Department Care Team Description 06/30/2025 Orders Only [facility] Medical Group Cardiology [address] [place] [phone] Luigi Piper MD from Last 3 Months [...] on file 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
--- OUTSIDE RECORDS SUMMARY | 2025-08-11 16:59 | XMS_ITS | Clinical Summary ---
Author Organization [facility] Address [address] [place] [address] Care Team Providers Care Refrigeration Operator Name Role Phone Juan Izquierdo Primary Care Provider [phone] Source Comments [facility],non-owned Affiliates and Associated Physician Practices is amultiple site organization consisting of ambulatory clinics and hospital sitesin [place], [place], [place] and [place]. This disclosure is being madepursuant to the Care Everywhere program and may not contain all information available regarding this patient. 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 Gender Identity Not on file Sexual Orientation Not on file Last Filed Vital Signs Vital Sign Reading Time Taken Comments Blood Pressure 137/72 09/28/2016 12:22 PM INSURANCE BILLER Pulse 81 09/28/2016 12:22 PM INSURANCE BILLER Temperature 36.8 C (98.3 F) 09/28/2016 12:22 PM INSURANCE BILLER Respiratory Rate 16 09/28/2016 12:22 PM INSURANCE BILLER Oxygen Saturation 94% 09/28/2016 12:22 PM INSURANCE BILLER Inhaled Oxygen Concentration - - Weight 63.5 kg (140 lb) 09/28/2016 8:29 AM INSURANCE BILLER Height 165.1 cm (5' 5) 09/28/2016 8:29 AM INSURANCE BILLER Body Mass Index 23.3 09/28/2016 8:29 AM INSURANCE BILLER Plan of Treatment Health Maintenance Due Date Last Done Comments BONE DENSITY TESTING 1940 DTAP/TDAP/TD VACCINES (1 - Tdap) 12/03/1959 PNEUMOCOCCAL VACCINE 50+ (1 of 1 - PCV) 1990 ZOSTER VACCINE (1 of 2) 1990 Respiratory Syncytial Virus (RSV) Vaccine Pt: or over 60 yrs (1 - 1-dose 75+ series) 12/03/2015 DEPRESSION SCREENING 09/17/2024 COVID-19 VACCINE ( - 2024-2 6 season) 2025 INFLUENZA VACCINE (#1) 2025 HEPATITIS [...] patient's age to complete this topic Insurance [employer] MEDICARE Care Teams Refrigeration Operator Relationship Specialty Start Date End Date Juan Izquierdo DO PCP - General Internal Medicine 09/28/16
--- NOTE | 2025-08-11 17:26 | PC.NURSE ---
CT notified that pt. is ready.
--- NOTE | 2025-08-11 19:14 | ED.GENADULT ---
HPI - General Adult General Chief complaint: Fall Stated complaint: TRIP AND FALL, FACIAL ABRASIONS NO THINNERS Time Seen by Provider: 08/11/25 19:02 History of Present Illness HPI narrative: Patient is a 84-year-old female who presents emergency department with chief complaint of ground level fall patient was walking in front for of room at [facility] and tripped and fell patient had some abrasions to her nose the patient is not on blood thinners Related Data Home Medications ?Medication ?Instructions ?Recorded ?Confirmed ?Last Taken ?Type clindamycin phosphate 1 % topical 1 applic topical DAILY 06/27/25 06/27/25 Unknown History swab doxycycline hyclate 20 mg tablet 20 mg PO Q24H 06/27/25 06/27/25 06/26/25 09:00 History 20 mg polyethylene glycol 3350 17 17 g PO DAILY 06/27/25 06/27/25 06/26/25 09:00 History gram/dose oral powder (Miralax) 17 grams triamcinolone acetonide 0.1 % 1 applic topical TID PRN 06/27/25 06/27/25 06/26/25 17:00 History topical cream dermititis on face 1 applic Allergies Allergy/AdvReac Type Severity Reaction Status Date / Time No Known Allergies Allergy Verified 08/11/25 15:20 Review of Systems Review of Systems: A 10 system review of systems was completed on the patient and is negative except for what is stated in the HPI. Nursing and ancillary documentation was reviewed. [facility] Past Medical History Medical History Heart failure with reduced ejection fraction Constipation Abdominal pain History of vaginal delivery x 3 Hx of breast cancer Depression Ankle fracture Rt x2. Arthritis History of melena GERD (gastroesophageal reflux disease) IBS (irritable bowel syndrome) Ulcer Hx of hemorrhoids COPD (chronic obstructive pulmonary disease) LBBB (left bundle branch block) Peripheral neuropathy Cataracts, bilateral History of COPD History of peripheral neuropathy History of gastroesophageal reflux (GERD) History of depression Surgical History Surgical History History of bilateral knee arthroplasty History of hemorrhoidectomy H/O cataract removal with insertion of prosthetic lens History of mastectomy Family History Family History Sibling Family history of diabetes mellitus in first degree relative Family history of malignant neoplasm of breast in first degree relative Patient's sister is in good health Father No family history of malignant neoplasm Family history of lung cancer Mother Patient's mother is Family history of Alzheimer's disease Family history of malignant melanoma Social History Social History Social History: Caffeine-coffee Smoking packs per day: 0.25 Smoking cigarettes per day: 5.0 Years smoked: 40 Smoking pack-years: 10.00 Smoking status: Former smoker Tobacco type: cigarettes Second hand tobacco smoke exposure: No Smoking end date: 09/17/98 Alcohol intake: never Substance use: never Substance use type: does not use Do You Feel Safe in your Home?: Yes Lack of Transportation: No Lack of Food: Never True Current Housing: I Have Housing Concerned About Future Housing: No Difficulty Paying Gas/Electric Bills: No Difficulty Paying for Meds: No Currently Unemployed: No Education: High School Diploma/GED Difficulty w/ Childcare or Family Care: No Living arrangements: with family Spiritual care concerns: No Exam Narrative: GENERAL: Well-appearing, well-nourished, and in no acute distress. HEAD: Normocephalic, atraumatic. EYES: PERRLA and EOMI. ENT: Nares clear, no rhinorrhea or epistaxis. Mucous membranes moist. Superficial abrasion present to the note NECK: Supple. CHEST: Clear to auscultation. No respiratory distress. HEART: Regular rate and rhythm. No murmur heard. Normal peripheral pulses. ABDOMEN: Soft, nontender, nondistended, normal active bowel sounds. EXTREMITIES: Normal range of motion. No edema. SKIN: Warm, dry, no rash. NEURO: No focal deficits. Alert and oriented x3. PSYCH: Normal mood and affect. Course Vital Signs Vital signs: Vital Signs Temperature 36.6 C 08/11/25 15:31 Pulse Rate 81 08/11/25 15:31 Respiratory Rate 20 08/11/25 15:31 Blood Pressure 97/61 L 08/11/25 15:31 Pulse Oximetry 99 08/11/25 15:31 Temperature 36.6 C 08/11/25 15:31 Pulse Rate 81 08/11/25 15:31 Respiratory Rate 20 08/11/25 15:31 Blood Pressure 97/61 L 08/11/25 15:31 Pulse Oximetry 99 08/11/25 15:31 Medical Decision Making MDM Narrative Medical decision making narrative: CT head CT C-spine were ordered and showed no acute abnormalities. The patient is at a baseline neurological status per the family the patient has no laceration that requires repair Vital Signs Vital Signs: Vital Signs Temperature 36.6 C 08/11/25 15:31 Pulse Rate 81 08/11/25 15:31 Respiratory Rate 20 08/11/25 15:31 Blood Pressure 97/61 L 08/11/25 15:31 Pulse Oximetry 99 08/11/25 15:31 Temperature 36.6 C 08/11/25 15:31 Pulse Rate 81 08/11/25 15:31 Respiratory Rate 20 08/11/25 15:31 Blood Pressure 97/61 L 08/11/25 15:31 Pulse Oximetry 99 08/11/25 15:31 Discharge Plan Discharge Clinical Impression: Ground-level fall, Head injury, Abrasion of nose Patient Disposition: NH Skilled Nursing/Asst Living Condition: Stable Instructions: Antibiotic Form, Head Injury (ED), Abrasion (ED), Fall Prevention (ED) Patient Language: Maori Prescriptions: No Action bupropion HCl 300 mg tablet extended release 24 hr 300 mg PO QAM Qty: 90 1RF doxycycline hyclate 20 mg tablet 20 mg PO Q24H clindamycin phosphate 1 % swab 1 applic TOPICAL DAILY polyethylene glycol 3350 [Miralax] 17 gram/dose powder 17 g PO DAILY triamcinolone acetonide 0.1 % cream 1 applic topical TID PRN (Reason: dermititis on face) quetiapine [Seroquel] 25 mg Tablet 25 mg PO HS 30 Days Qty: 30 1RF atorvastatin 40 mg Tablet 80 mg PO DAILY 30 Days Qty: 60 1RF aspirin 81 mg Tablet,Delayed Release (Dr/Ec) 81 mg PO QAM 30 Days Qty: 30 1RF sacubitril-valsartan [Entresto] 24-26 mg Tablet 1 tab PO Q12HR 30 Days Qty: 60 1RF metoprolol tartrate 25 mg tablet 12.5 mg PO BID 30 Days Qty: 30 1RF clopidogrel 75 mg Tablet 75 mg PO QAM 30 Days Qty: 30 1RF Jardiance 10 mg Tablet 10 mg PO DAILY 30 Days Qty: 30 1RF gabapentin 300 mg capsule See Rx Instructions PO DAILY Qty: 120 3RF Rx Instructions: take one cap PO in the am, take 1 cap in afternoon, and take 2 in pm PO daily; Follow-up/Referrals: Hermann Arrieta APRN [Primary Care Provider, Internal Medicine] Time of Disposition: 19:22
[2025-08-11 19:35] VITALS: BP 101/63; PULSE 75; RESP 16; O2SAT 99
--- NOTE | 2025-08-11 19:39 | PC.NURSE ---
[facility] return [facility] private vehicle.
== END 2025-08-11 19:35 ==
PROVIDERS: Emergency Provider Emergency Medicine; PCP Nurse Practitioner
DX: S00.31XA Abrasion of nose, initial encounter (principal); I50.9 Heart failure, unspecified; Z85.3 Personal history of malignant neoplasm of breast; F32.A Depression, unspecified; M19.90 Unspecified osteoarthritis, unspecified site; K21.9 Gastro-esophageal reflux disease without esophagitis; J44.9 Chronic obstructive pulmonary disease, unspecified; I44.7 Left bundle-branch block, unspecified; W01.0XXA Fall on same level from slipping, tripping and stumbling without subsequent striking against object, initial encounter
CPT/HCPCS: 70450; 70486; 72125; 99284